=== PATIENT | male | born 1950 | race Caucasian/White ===

== ENCOUNTER 2020-07-06 16:06 | Inpatient (IN) | payer MEDICARE, MEDICAID, SELFPAY ==
[2020-07-06] VITALS (7 sets, daily range): BP systolic 123–166; BP diastolic 66–86; PULSE 67–87; RESP 16–20; TEMP 36.3–36.5; O2SAT 94–97; BMI 39.9
--- NOTE | ~2020-07-06 | XR_ITS ---
EXAMINATION: XR chest 2V EXAM DATE: 07/06/2020 17:11 INDICATION: Dizziness, weakness, transient alteration of awareness. TECHNIQUE: Frontal and lateral projections of the chest obtained and reviewed. There is no prior clau dy for comparison. FINDINGS: There is cardiomegaly and pulmonary vascular congestion. No confluent consolidation, pneu mothorax or pleural effusion suspected. There are bony degenerative changes. IMPRESSION: Cardiomegaly, congestion. Reviewed, dictated and finalized at location A. IMPRESSION: Cardiomegaly, congestion.
--- NOTE | ~2020-07-06 | CT_ITS ---
EXAMINATION: CT brain wo con DATE: 07/06/2020 17:43 INDICATION: Dizziness. TECHNIQUE: Computed tomography (CT) of the head was performed without intravenous contrast. The mA wa s adjusted according to patient size. Iterative reconstruction technique was employed. Exam dose: 60 5.33 mGy-cm total exam DLP. COMPARISON: None FINDINGS: There are bilateral carotid siphon internal carotid artery calcifications. There is nonspec ific diminished attenuation of the cerebral white matter, likely due to chronic small vessel ischemic changes. No intracranial mass lesion or hemorrhage or recent cerebrovascular accident is evident. No midline s hift or mass effect. Normal ventricular size. No subdural or epidural hematoma. The orbits are unremarkable. No fracture or bone destruction of the cranial vault. Included paranasal sinuses and mastoid air cell s are normally developed and aerated. Included paranasal sinuses are normally developed and aerated. The mastoid air cells are normally dev eloped and aerated. IMPRESSION: No acute intracranial abnormality Cerebral atherosclerosis and chronic small vessel ischemic changes of the cerebral white matter Reviewed, dictated and finalized at Location [facility]. Reviewed, dictated and finalized at location A. IMPRESSION: No acute intracranial abnormality Cerebral atherosclerosis and chronic small vessel ischemic changes of the cereb ral white matter
--- NOTE | ~2020-07-06 | MR_ITS ---
EXAMINATION: MR brain/brain stem wo/w con DATE: 07/07/2020 11:58 INDICATION: Dizziness TECHNIQUE: Magnetic resonance imaging (MRI) of the brain and brainstem was performed without and with 20 mL Multihance intravenous contrast. Sequences included sagittal and axial T1-weighted SE, axial d iffusion-weighted FS SE, axial T2*-weighted GRE, axial T2-weighted FLAIR, and axial T2-weighted FSE. Postcontrast axial and coronal T1-weighted SE was obtained. Apparent diffusion coefficient (ADC) maps were created. COMPARISON: Head CT dated 07/06/2020 FINDINGS: There are no areas of restricted diffusion to suggest acute infarction. No intracranial hemorrhage or abnormal intracranial mass lesion. There are scattered areas of nonspecific increased T2-weighted si gnal intensity in the cerebral white matter, predominantly involving the deep and periventricular whi te matter. There are no intraparenchymal signal abnormalities seen on the other pulse sequences. The ventricles are symmetric and normal in size with normal variant cavum septum pellucidum. There are no abnormal extra-axial fluid collections. Flow voids are seen in the cerebral arteries on the T2-weigh quentin sequences consistent with their expected patency. Very small right mastoid effusion. Visualized o rbits and soft tissues are unremarkable. There are no areas of abnormal enhancement on the post contr ast images. IMPRESSION: 1. No acute intracranial process. 2. Mild scattered periventricular predominant nonspecific white matter T2 hyperintensity which is wit hin normal limits for age and likely sequela of chronic small vessel ischemic disease. Reviewed, dictated and finalized at location A. IMPRESSION: 1. No acute intracranial process. 2. Mild scattered periventricular predominant nonspecific white matter T2 hyper intensity which is within normal limits for age and likely sequela of chronic s mall vessel ischemic disease.
--- NOTE | 2020-07-06 16:07 | ED.DIZZY ---
HPI - Dizziness General Chief Complaint: Dizziness Stated Complaint: WEAK/DIZZY Time Seen by Provider: 07/06/20 16:06 Source: patient, family and EMS Mode of arrival: EMS Limitations: no limitations History of Present Illness HPI Narrative: Patient is 69 years old white male lives with his parents who brought him to the emergency room because of general weakness, wobbly-like feeling and dizziness started cotton sampler associated with nausea and clammy skin and frequent vomiting. Patient reports the dizziness gets worse with movement for turning his head to either direction. Patient denies any fever, chills, chest pain, shortness of breath, back pain, headache, COVID-19 infection or exposure to anybody with COVID-19 MD elicited complaint: dizziness, difficulty walking, disequilibrium and other (Vertigo) Related Data Home Medications Medication Instructions Recorded Confirmed K-Tab 07/06/20 aspirin 81 mg PO DAILY 07/06/20 07/06/20 atorvastatin [Lipitor] 80 mg PO DAILY 07/06/20 07/06/20 cetirizine 10 mg PO DAILY 07/06/20 07/06/20 furosemide [Lasix] 40 mg PO DAILY 07/06/20 07/06/20 glipizide [Glucotrol] 10 mg PO BID 07/06/20 07/06/20 insulin degludec [Tresiba U-100 SUBCUT 07/06/20 Insulin] lisinopril 5 mg PO DAILY 07/06/20 07/06/20 metformin [Glucophage] 1,000 mg PO BID 07/06/20 07/06/20 metoprolol succinate [Toprol XL] PO 07/06/20 pen needle, diabetic [NovoFine 30] 07/06/20 07/06/20 primidone 50 mg PO HS 07/06/20 07/06/20 semaglutide 0.5 mg SUBCUT WEEKLY 07/06/20 07/06/20 Allergies Allergy/AdvReac Type Severity Reaction Status Date / Time No Known Allergies Allergy Verified 07/06/20 16:21 Review of Systems Review of Systems: Narrative: CONSTITUTIONAL: Denies fever, chills, or sweats. EYES: Denies visual changes, redness, or discharge. ENT: Denies rhinorrhea, congestion, sore throat, or otalgia. CARDIOVASCULAR: Denies chest pain, palpitations, or edema. RESPIRATORY: Denies cough or dyspnea. GASTROINTESTINAL: Denies abdominal pain, nausea, vomiting, or diarrhea. GENITOURINARY: Denies dysuria or hematuria. SKIN: Denies rash or itching. MUSCULOSKELETAL: Denies back pain, joint pain, or myalgia. NEUROLOGIC: Denies headache, numbness, or weakness. PSYCHIATRIC: Denies anxiety or depression. Exam Narrative: Exam Narrative: General appearance: Well-developed, well-nourished Skin: Normal color Head: Normocephalic, nontraumatic Eyes: Clear conjunctiva ENT: Oropharynx normal, ears normal, nose normal Neck: Supple, nontender Chest and respiratory: Airway patent, no respiratory distress, no accessory muscle use Heart: Regular rate/rhythm Abdomen: Soft, nontender, no organomegaly, quiet bowel sounds Vascular: Normal peripheral pulses, normal capillary refill. Musculoskeletal: Normal range of motion, nontender back Neurologic: Alert and oriented ?3, [employer] is normal as tested, no gross motor deficit Course Course Emergency Course: Improving Reevaluation(s) Reevaluation #1: The dizziness resolved after IV Valium, Antivert and Zofran. Patient was not able to get up without senior office assistant because of the funny feeling in the head. Date: 07/06/20 Time: :21 Vital Signs Vital signs: Vital Signs Temperature 36.5 C 07/06/20 16:04 Pulse Rate 75 07/06/20 16:04 Respiratory Rate 20 07/06/20 16:04 Blood Pressure 141/73 H 07/06/20 16:04 Pulse Oximetry 94 07/06/20 16:04 Temperature 36.5 C 07/06/20 16:04 Pulse Rate 68 07/06/20 19:17 Respiratory Rate 18 07/06/20 19:17 Blood Pressure 166/80 H 07/06/20 19:17 Pulse Oximetry 94 07/06/20 19:17 MDM - Dizziness MDM Narrative Medical decision making narrative: Dizziness with naus
--- NOTE | 2020-07-06 16:24 | ECG_ITS ---
Measurements Intervals [place] Rate: 74 P: 56 VA: 142 QRS: 26 QRSD: 114 T: -14 QT: 400 QTc: 446 Interpretive Statements SINUS RHYTHM INFERIOR INFARCT, AGE INDETERMINATE ABNORMAL ECG Electronically Signed On 07-06-2020 16:39:24 CDT by Floyd Durant D.O.
[2020-07-06] MEDS: ONDANSETRON INJ 4 MG/2 ML VIAL 8 MG IV PUSH (16:47)
[2020-07-06 16:50] LABS: Basophils Percent Auto 0.1 % (0.2-1.2); Eosinophils Percent Auto 0.1 % (0-4.4); Hematocrit 44.2 % (42.0-52.0); Hemoglobin 15.1 g/dL (14.0-18.0); Immature Granulocyte Absolute 0.09 K/mm3 (0.00-0.031); Immature Granulocyte Percent A 0.8 % (0-0.5); Lymphocytes Absolute Auto 0.98 K/mm3 (0.9-3.2); Lymphocytes Percent Auto 8.6 % (18.3-44.2); Mean Corpuscular HGB Conc 34.2 g/dl (32-36); Mean Corpuscular Hemoglobin 31.3 pg (26-34); Mean Corpuscular Volume 91.5 fl (80-100); Mean Platelet Volume 10.7 fl (7.4-10.4); Monocytes Absolute Auto 0.4 K/mm3 (0.1-0.6); Monocytes Percent Auto 3.5 % (2.6-8.5); Neutrophils Absolute Auto 9.9 K/mm3 (1.3-6.7); Neutrophils Percent Auto 86.9 % (45.5-73.1); Platelet Count Result 204 k/mm3 (150-375); Red Blood Count 4.83 M/mm3 (4.6-6.20); Red Cell Distribution Width 12.6 % (11.5-14.5); White Blood Count 11.3 K/mm3 (4.5-10.0)
[2020-07-06] MEDS: diazePAM INJ (*CRX) 10 MG/2 ML SYRINGE 5 MG IV PUSH (16:53)
[2020-07-06 16:56] LABS: Alveolar/Arterial O2 Gradient 30.1 mmHg; Base Excess ABG -2.5 mEq/l (+/-2.0); Fractional Inspired Oxygen 21 %; HCO3 ABG 22.9 mEq/l (22.0-26.0); Oxygen Content ABG 19.9 %vol (16.0-22.0); Oxygen Saturation ABG 93.2 % (95.0-100.0); Oxyhemoglobin 91.3 % THb (90.0-100.0); PCO2 ABG 42.1 mmHg (35.0-45.0); PO2 ABG 69.2 mmHg (80.0-100.0); Total Hemoglobin 15.5 g/dL (12.0-18.0); pH ABG 7.354 (7.350-7.450)
[2020-07-06] MEDS: MECLIZINE HCL 25 MG TABLET PO (16:56)
[2020-07-06 16:57] LABS: Device ROOM AIR; Site Drawn LEFT BRACHIAL
[2020-07-06 17:05] LABS: Alanine Aminotransferase 28 U/L (4-50); Albumin Level 4.1 g/dL (3.5-5.1); Alkaline Phosphatase 90 U/L (38-126); Anion Gap 7 mmol/L (8-16); Aspartate Amino Transferase 24 U/L (17-59); Bilirubin,Total 0.4 mg/dL (0.2-1.3); Blood Urea Nitrogen 18 mg/dL (9-20); CRP < 0.5 mg/dL (<1.0); Calcium 8.8 mg/dL (8.4-10.2); Carbon Dioxide 25 mmol/L (22-30); Chloride 106 mmol/L (98-107); Estimated CRCL calculation 146 ml/min; Estimated Glomerular Filt Rate > 60; Glucose 265 mg/dL (75-110); Potassium 4.2 mmol/L (3.4-5.0); Sodium 138 mmol/L (137-145)
[2020-07-06 17:14] LABS: Lactic Acid Reflex 1.4 mmol/L (0.7-2.1)
[2020-07-06 17:46] LABS: Troponin I < 0.012 ng/mL (0.000-0.034)
[2020-07-06 21:38] LABS: Add Urine Microscopic? YES; Appearance Urine Clear (Clear); Bacteria Urine Trace /hpf; Bilirubin Urine Negative (Negative); Blood Urine Negative (Negative); Color Urine Yellow (Yellow); Glucose Urine UA 3+ mg/dL (Negative); Ketones Urine 2+ mg/dL (Negative); Leukocyte Esterase Ur Negative LEU/UL (Negative); Mucus Urine Rare /lpf; Nitrate Urine Negative (Negative); Protein Urine 1+ mg/dL (Negative); RBC Urine 0-2 /hpf (0-2); Specific Grav Ur 1.037 (1.001-1.035); Squamous Epithelial Cell Urine Rare /hpf (Few); Urobilinogen Urine Negative mg/dL (<2.0); WBC Urine 0-3 /hpf
--- NOTE | 2020-07-06 21:41 | ADMGEN ---
This patient, Jovan Anguiano, was admitted to Medical Room [facility]-[id number]. Patient/family oriented to hospital policies and general routines including ID bracelet, bed and alarms, visiting hours, pain management, procedures, bathroom and other care routines, personal items, smoking policy, room service/diet, and visiting hours. Information on how to activate the Rapid Response Team has been discussed. Patient/Family are encouraged to report perceived risks to care and to ask questions if they do not understand what they are told or what they should do.
[2020-07-06 21:57] LABS: Glucose Point of Care 219 (65-105)
[2020-07-07] VITALS (10 sets, daily range): BP systolic 118–146; BP diastolic 60–75; PULSE 61–72; RESP 18; TEMP 36.1–36.4; O2SAT 95–99
--- NOTE | 2020-07-07 02:26 | PM.IMHP ---
H&P: HPI History of Present Illness Date/Time: 07/07/20 02:26 Chief Complaint: Dizziness, nausea vomiting Narrative: 69-year-old male with a past medical history of intellectual disability, diabetes mellitus, hypertension and morbid obesity who presented to the ER via EMS with dizziness, nausea and vomiting. The patient is only a fair historian due to his history of intellectual disability. The patient reports that is around dinnertime on the he went to stand up and could not do so. He reported that he felt like his legs were moving in opposite directions. He also reported feeling dizzy and could not walk. He tried to walk downstairs to check his glucoses but could not do so. At that time his parents called EMS. He denied any headache at that time. He does describe what sounds like vertigo. He had several episodes of emesis. He had severe nausea with changes in position. While he was in the ER when he was lying still with his eyes closed his symptoms were not as bad. He received diazepam, meclizine and Zofran in the ER with significant improvement in his symptoms. However when they tried to stand the patient up to ambulate he still reported that his head felt funny and he was unstable on his feet. The patient had recurrence of his dizziness. After he arrived on the medical floor he developed a headache. He cannot describe the type of headache and does not note any eliciting or relieving factors. He states that he thinks that headache is all over his head. He denies any recent upper respiratory symptoms, ear pain or fullness, nasal congestion, viral symptoms ordered known COVID exposures. He lives at home with his elderly parents who have not had any upper respiratory symptoms. His glucose when he arrived to the ER was 265. Review of Systems Review of Systems: Narrative: 12 systems were reviewed with pertinent positives and negatives per HPI. Except as documented in the HPI, all other systems were reviewed and are negative. [facility] Past Medical History Medical History (Updated 07/07/20 @ 07:39 by Meaghan Phillips DO) CHF (congestive heart failure) Diabetes mellitus Essential hypertension Hyperlipidemia Intellectual disability Morbid obesity Surgical History Surgical History (Updated 07/07/20 @ 02:30 by Meaghan Phillips DO) Hx of tonsillectomy Family History Family History Other Unknown family medical history Social History Social History (Updated 07/07/20 @ 07:35 by Meaghan Phillips DO) Smoking packs per day: 1 Smoking cigarettes per day: 20.0 Years smoked: 49 Smoking pack-years: 49.00 Smoking status: Current every day smoker Tobacco type: cigarettes Additional smoking assessment comments: Started smoking at age of 20 Alcohol intake: never Substance use: never Substance use type: does not use Living arrangements: with family Additional living arrangements comments: In [place] with his elderly parents. His parents help provide for his activities of daily living. The patient does not drive. He has 1 sister and 3 brothers. Additional occupation/education comments: He is on disability due to his intellectual impairment. Gender identity (if verbalized by the patient): Male Spiritual care concerns: No Meds Home Medications and Allergies Home Medications Medication Instructions Recorded Confirmed Type K-Tab 10 meq PO DAILY 07/06/20 07/06/20 History aspirin 81 mg PO DAILY 07/06/20 07/06/20 History atorvastatin [Lipitor] 80 mg PO DAILY 07/06/20 07/06/20 History cetirizine 10 mg PO DAILY 07/06/20 07/06/20 History furosemide [Lasix] 40 mg PO DAILY 07/06/20 07/06/20 History glipizide [Glucotrol] 10 mg PO BID 07/06/20 07/06/20 History insulin degludec [Tresiba U-100 52 unit SUBCUT DAILY 07/06/20 07/06/20 History Insulin] lisinopril 5 mg PO DAILY 07/06/20 07/06/20 History metformin [Glucophage] 1,000 mg PO BID 0
[2020-07-07 06:40] LABS: Hemoglobin A1C 9.2 % (<5.7)
[2020-07-07 06:49] LABS: Glucose Point of Care 231 (65-105)
[2020-07-07] MEDS: INSULIN ASPART (*BKC) 100 UNITS/ML SUB-Q ×2 (07:19→12:32)
[2020-07-07] MEDS: INSULIN GLARGINE (*BKC) 100 UNITS/ML 52 UNITS SUB-Q (09:11)
[2020-07-07] MEDS: metFORMIN HCL 500 MG TABLET 1000 MG PO ×2 (09:13→17:03)
[2020-07-07] MEDS: ASPIRIN 81 MG ENTERIC TABLET PO (09:13)
[2020-07-07] MEDS: lisinopriL 5 MG TABLET PO (09:13)
[2020-07-07] MEDS: glipiZIDE 5 MG TABLET 10 MG PO ×2 (09:13→17:02)
[2020-07-07] MEDS: LORATADINE 10 MG TABLET PO (09:13)
[2020-07-07] MEDS: ATORVASTATIN 40 MG TABLET 80 MG PO (09:14)
[2020-07-07] MEDS: POTASSIUM CHLORIDE 10 MEQ TABLET.ER PO (09:14)
[2020-07-07] MEDS: FUROSEMIDE 40 MG TABLET PO (09:14)
[2020-07-07] MEDS: METOPROLOL SUCCINATE EXT REL 50 MG TABCR PO (09:14)
[2020-07-07] MEDS: MECLIZINE HCL 25 MG TABLET PO ×3 (09:14→17:02)
[2020-07-07 12:32] LABS: Glucose Point of Care 212 (65-105)
--- NOTE | 2020-07-07 14:09 | PM.IMPN ---
Progress Note: A&P Assessment and Plan (1) Vertigo: Code(s): R42 - Dizziness and giddiness Status: Acute Assessment and Plan: Possibly due to benign positional vertigo. The patient's symptoms did improve with diazepam and meclizine. However some symptoms do still persist. Given the patient has a complicated medical history with diabetes hypertension and obesity he is at increased risk for CVA. Will check an MRI to rule out posterior circulation CVA. 07/07/20 14:09 Patient is 69-year-old male with history intellectual disability who was brought to the emergency department by his family as he had been complaining of dizziness describing as his legs were moving in a opposite direction and he was not able to ambulate he also complains of nausea and vomiting his symptoms emergency department patient was given meclizine, diazepam and Zofran patient did help with symptoms, to further evaluate patient had a CT scan of the head which was negative acute intracranial abnormality similarly patient had MRI which is essentially normal, did participate in physical therapy however he was not able to ambulate due to his symptoms and was not able to participate physical therapy, will continue to monitor and provide the patient with meclizine and continue his physical therapy once his clinically stable will do the discharge planning. (2) Type 2 diabetes mellitus with hyperglycemia: Code(s): E11.65 - Type 2 diabetes mellitus with hyperglycemia Status: Acute Assessment and Plan: Will resume the patient's home oral clot hypoglycemic agents as well as long-acting insulin. The patient's hemoglobin A1c indicates the patient is chronically uncontrolled with his diabetes. Will add sliding scale insulin with Accu-Cheks a.c. HS and hypoglycemia protocol. Subjective Date/time seen: 07/07/20 14:09 Patient is 69-year-old male with history intellectual disability who was brought to the emergency department by his family as he had been complaining of dizziness describing as his legs were moving in a opposite direction and he was not able to ambulate he also complains of nausea and vomiting his symptoms emergency department patient was given meclizine, diazepam and Zofran patient did help with symptoms, to further evaluate patient had a CT scan of the head which was negative acute intracranial abnormality similarly patient had MRI which is essentially normal, did participate in physical therapy however he was not able to ambulate due to his symptoms and was not able to participate physical therapy, will continue to monitor and provide the patient with meclizine and continue his physical therapy once his clinically stable will do the discharge planning. Review of Systems Review of Systems: All systems reviewed & are unremarkable except as noted in HPI and below Exam Narrative: Exam Narrative: Moderately obese Patient is comfortable, NAD HEENT: eyes are clear and none icteric LUNGS:CTA HEART: RR S1S2 ABD: BS+, Soft and nontender Lower extremities: no edema SKIN: nonjaundiced Neuro: grossly intact. Objective Data Vital Signs Vital Signs: Vital Signs - 24 hr 07/06/20 16:04 07/06/20 16:15 07/06/20 16:45 Temperature 97.7 F Pulse Rate 75 74 67 Respiratory Rate 20 16 18 Blood Pressure 141/73 H 140/74 144/69 H Pulse Oximetry 94 97 95 07/06/20 17:10 07/06/20 19:17 07/06/20 21:15 Temperature Pulse Rate 72 68 79 Respiratory Rate 18 19 Blood Pressure 129/66 166/80 H 149/71 H Pulse Oximetry 94 95 07/06/20 21:55 07/07/20 00:00 07/07/20 04:00 Temperature 97.3 F L Pulse Rate 87 70 69 Respiratory Rate 18 Blood Pressure 123/86 Pulse Oximetry 96 07/07/20 06:00 07/07/20 08:00 07/07/20 09:14 Temperature 97.6 F Pulse Rate 68 72 68 Respiratory Rate 18 Blood Pressure 127/60 Pulse Oximetry 95 Intake/Output Intake/Output: Intake & Output 07/04/20 07/05/20 07/06/20 07/07/20 23:59
[2020-07-07 14:29] LABS: Glucose Point of Care 234 (65-105)
[2020-07-07 16:55] LABS: Glucose Point of Care 192 (65-105)
[2020-07-07 21:58] LABS: Glucose Point of Care 231 (65-105)
[2020-07-08] VITALS (10 sets, daily range): BP systolic 142–152; BP diastolic 73–77; PULSE 58–74; RESP 16–18; TEMP 36.1–36.4; O2SAT 96–99
[2020-07-08 06:53] LABS: Glucose Point of Care 247 (65-105)
[2020-07-08] MEDS: glipiZIDE 5 MG TABLET 10 MG PO ×2 (07:20→16:33)
[2020-07-08] MEDS: INSULIN ASPART (*BKC) 100 UNITS/ML SUB-Q (07:21)
[2020-07-08] MEDS: POTASSIUM CHLORIDE 10 MEQ TABLET.ER PO (07:21)
[2020-07-08] MEDS: metFORMIN HCL 500 MG TABLET 1000 MG PO ×2 (07:21→16:33)
[2020-07-08] MEDS: FUROSEMIDE 40 MG TABLET PO (08:53)
[2020-07-08] MEDS: lisinopriL 5 MG TABLET PO (08:53)
[2020-07-08] MEDS: ASPIRIN 81 MG ENTERIC TABLET PO (08:53)
[2020-07-08] MEDS: METOPROLOL SUCCINATE EXT REL 50 MG TABCR PO (08:53)
[2020-07-08] MEDS: ATORVASTATIN 40 MG TABLET 80 MG PO (08:53)
[2020-07-08] MEDS: MECLIZINE HCL 25 MG TABLET PO ×3 (08:53→16:33)
[2020-07-08] MEDS: LORATADINE 10 MG TABLET PO (08:55)
[2020-07-08] MEDS: INSULIN GLARGINE (*BKC) 100 UNITS/ML 52 UNITS SUB-Q (08:55)
[2020-07-08 12:39] LABS: Glucose Point of Care 195 (65-105)
--- NOTE | 2020-07-08 14:00 | PM.IMPN ---
Progress Note: A&P Assessment and Plan (1) Vertigo: Code(s): R42 - Dizziness and giddiness Status: Acute Assessment and Plan: Possibly due to benign positional vertigo. The patient's symptoms did improve with diazepam and meclizine. However some symptoms do still persist. Given the patient has a complicated medical history with diabetes hypertension and obesity he is at increased risk for CVA. Will check an MRI to rule out posterior circulation CVA. 07/07/20 Patient is 69-year-old male with history intellectual disability who was brought to the emergency department by his family as he had been complaining of dizziness describing as his legs were moving in a opposite direction and he was not able to ambulate he also complains of nausea and vomiting his symptoms emergency department patient was given meclizine, diazepam and Zofran patient did help with symptoms, to further evaluate patient had a CT scan of the head which was negative acute intracranial abnormality similarly patient had MRI which is essentially normal, did participate in physical therapy however he was not able to ambulate due to his symptoms and was not able to participate physical therapy, will continue to monitor and provide the patient with meclizine and continue his physical therapy once his clinically stable will do the discharge planning. 07/08 today patient participate in PT was still dizzy and unsteady on feet, discussed with PT, will try again tomorrow and further recommendation to follow. will continue meclizine 25mg PO TID, His father is present in the room and discussed and answered all the questions. (2) Type 2 diabetes mellitus with hyperglycemia: Code(s): E11.65 - Type 2 diabetes mellitus with hyperglycemia Status: Acute Assessment and Plan: Will resume the patient's home oral clot hypoglycemic agents as well as long-acting insulin. The patient's hemoglobin A1c indicates the patient is chronically uncontrolled with his diabetes. Will add sliding scale insulin with Accu-Cheks a.c. HS and hypoglycemia protocol. Subjective Date/time seen: 07/08/20 14:00 07/07/20 Patient is 69-year-old male with history intellectual disability who was brought to the emergency department by his family as he had been complaining of dizziness describing as his legs were moving in a opposite direction and he was not able to ambulate he also complains of nausea and vomiting his symptoms emergency department patient was given meclizine, diazepam and Zofran patient did help with symptoms, to further evaluate patient had a CT scan of the head which was negative acute intracranial abnormality similarly patient had MRI which is essentially normal, did participate in physical therapy however he was not able to ambulate due to his symptoms and was not able to participate physical therapy, will continue to monitor and provide the patient with meclizine and continue his physical therapy once his clinically stable will do the discharge planning. 07/08 today patient participate in PT was still dizzy and unsteady on feet, discussed with PT, will try again tomorrow and further recommendation to follow. will continue meclizine 25mg PO TID, His father is present in the room and discussed and answered all the questions. Review of Systems Review of Systems: All systems reviewed & are unremarkable except as noted in HPI and below Exam Narrative: Exam Narrative: Moderately obese Patient is comfortable, NAD HEENT: eyes are clear and none icteric LUNGS:CTA HEART: RR S1S2 ABD: BS+, Soft and nontender Lower extremities: no edema SKIN: nonjaundiced Neuro: grossly intact. Objective Data Vital Signs Vital Signs: Vital Signs - 24 hr 07/07/20 16:00 07/07/20 20:00 07/07/20 21:48 Temperature Pulse Rate 61 72 Respiratory Rate Blood Pressure Pulse Oximetry 96 07/07/20 22:00 07/08/20 00:00 07/08/20 04:00 Temperature 97.0 F L P
[2020-07-08 17:19] LABS: Glucose Point of Care 195 (65-105)
[2020-07-08 21:12] LABS: Glucose Point of Care 206 (65-105)
[2020-07-09] VITALS (10 sets, daily range): BP systolic 119–151; BP diastolic 66–80; PULSE 56–66; RESP 16–18; TEMP 36.3–36.5; O2SAT 97–99
[2020-07-09 05:36] LABS: Hematocrit 46.8 % (42.0-52.0); Hemoglobin 15.7 g/dL (14.0-18.0); Mean Corpuscular HGB Conc 33.5 g/dl (32-36); Mean Corpuscular Hemoglobin 30.7 pg (26-34); Mean Corpuscular Volume 91.6 fl (80-100); Mean Platelet Volume 10.9 fl (7.4-10.4); Platelet Count Result 200 k/mm3 (150-375); Red Blood Count 5.11 M/mm3 (4.6-6.20); Red Cell Distribution Width 12.3 % (11.5-14.5)
[2020-07-09 05:59] LABS: Anion Gap 5 mmol/L (8-16); Blood Urea Nitrogen 14 mg/dL (9-20); Calcium 8.8 mg/dL (8.4-10.2); Carbon Dioxide 33 mmol/L (22-30); Chloride 102 mmol/L (98-107); Estimated CRCL calculation 123 ml/min; Estimated Glomerular Filt Rate > 60; Glucose 183 mg/dL (75-110); Magnesium 1.7 mg/dL (1.6-2.3); Potassium 3.7 mmol/L (3.4-5.0); Sodium 140 mmol/L (137-145)
[2020-07-09 07:42] LABS: Glucose Point of Care 198 (65-105)
[2020-07-09] MEDS: lisinopriL 5 MG TABLET PO (08:38)
[2020-07-09] MEDS: METOPROLOL SUCCINATE EXT REL 50 MG TABCR PO (08:38)
[2020-07-09] MEDS: FUROSEMIDE 40 MG TABLET PO (08:38)
[2020-07-09] MEDS: ATORVASTATIN 40 MG TABLET 80 MG PO (08:38)
[2020-07-09] MEDS: LORATADINE 10 MG TABLET PO (08:38)
[2020-07-09] MEDS: metFORMIN HCL 500 MG TABLET 1000 MG PO ×2 (08:38→17:30)
[2020-07-09] MEDS: glipiZIDE 5 MG TABLET 10 MG PO ×2 (08:38→17:31)
[2020-07-09] MEDS: MECLIZINE HCL 25 MG TABLET PO ×3 (08:38→17:31)
[2020-07-09] MEDS: POTASSIUM CHLORIDE 10 MEQ TABLET.ER PO (08:39)
[2020-07-09] MEDS: ASPIRIN 81 MG ENTERIC TABLET PO (08:39)
[2020-07-09] MEDS: INSULIN GLARGINE (*BKC) 100 UNITS/ML 52 UNITS SUB-Q (08:42)
[2020-07-09] MEDS: INSULIN ASPART (*BKC) 100 UNITS/ML SUB-Q (12:17)
[2020-07-09 13:28] LABS: Glucose Point of Care 280 (65-105)
--- NOTE | 2020-07-09 14:26 | PM.IMPN ---
Progress Note: A&P Assessment and Plan (1) Vertigo: Code(s): R42 - Dizziness and giddiness Status: Acute Assessment and Plan: Possibly due to benign positional vertigo. The patient's symptoms did improve with diazepam and meclizine. However some symptoms do still persist. Given the patient has a complicated medical history with diabetes hypertension and obesity he is at increased risk for CVA. Will check an MRI to rule out posterior circulation CVA. 07/09/20 14:26 07/07/20 Patient is 69-year-old male with history intellectual disability who was brought to the emergency department by his family as he had been complaining of dizziness describing as his legs were moving in a opposite direction and he was not able to ambulate he also complains of nausea and vomiting his symptoms emergency department patient was given meclizine, diazepam and Zofran patient did help with symptoms, to further evaluate patient had a CT scan of the head which was negative acute intracranial abnormality similarly patient had MRI which is essentially normal, did participate in physical therapy however he was not able to ambulate due to his symptoms and was not able to participate physical therapy, will continue to monitor and provide the patient with meclizine and continue his physical therapy once his clinically stable will do the discharge planning. 07/08 today patient participate in PT was still dizzy and unsteady on feet, discussed with PT, will try again tomorrow and further recommendation to follow. will continue meclizine 25mg PO TID, His father is present in the room and discussed and answered all the questions. 07/09 today patient stats dizziness has improved however discussed with PT he is very unsteady on his feet and will benefit going to rehab for physical therapy, I have spoke to his family and they are agreeable, may discharge to rehab tomorrow. (2) Type 2 diabetes mellitus with hyperglycemia: Code(s): E11.65 - Type 2 diabetes mellitus with hyperglycemia Status: Acute Assessment and Plan: Will resume the patient's home oral clot hypoglycemic agents as well as long-acting insulin. The patient's hemoglobin A1c indicates the patient is chronically uncontrolled with his diabetes. Will add sliding scale insulin with Accu-Cheks a.c. HS and hypoglycemia protocol. Subjective Date/time seen: 07/09/20 14:26 07/07/20 Patient is 69-year-old male with history intellectual disability who was brought to the emergency department by his family as he had been complaining of dizziness describing as his legs were moving in a opposite direction and he was not able to ambulate he also complains of nausea and vomiting his symptoms emergency department patient was given meclizine, diazepam and Zofran patient did help with symptoms, to further evaluate patient had a CT scan of the head which was negative acute intracranial abnormality similarly patient had MRI which is essentially normal, did participate in physical therapy however he was not able to ambulate due to his symptoms and was not able to participate physical therapy, will continue to monitor and provide the patient with meclizine and continue his physical therapy once his clinically stable will do the discharge planning. 07/08 today patient participate in PT was still dizzy and unsteady on feet, discussed with PT, will try again tomorrow and further recommendation to follow. will continue meclizine 25mg PO TID, His father is present in the room and discussed and answered all the questions. 07/09 today patient stats dizziness has improved however discussed with PT he is very unsteady on his feet and will benefit going to rehab for physical therapy, I have spoke to his family and they are agreeable, may discharge to rehab tomorrow. Review of Systems Review of Systems: All systems reviewed & are unremarkable except as noted in HPI and below Exam Narrative: Exam Narrative: Mark
[2020-07-09 18:18] LABS: Glucose Point of Care 159 (65-105)
[2020-07-09 20:24] LABS: SARS-CoV-2 RNA PCR Negative
[2020-07-09 23:49] LABS: Glucose Point of Care 216 (65-105)
[2020-07-10] VITALS: PULSE 62
[2020-07-10 04:00] VITALS: PULSE 65
[2020-07-10 05:11] VITALS: BP 124/74; PULSE 64; RESP 16; TEMP 36.3; O2SAT 97
[2020-07-10 05:26] LABS: Hematocrit 46.3 % (42.0-52.0); Hemoglobin 15.8 g/dL (14.0-18.0); Mean Corpuscular HGB Conc 34.1 g/dl (32-36); Mean Corpuscular Hemoglobin 30.9 pg (26-34); Mean Corpuscular Volume 90.4 fl (80-100); Mean Platelet Volume 10.8 fl (7.4-10.4); Platelet Count Result 207 k/mm3 (150-375); Red Blood Count 5.12 M/mm3 (4.6-6.20); Red Cell Distribution Width 12.2 % (11.5-14.5); White Blood Count 9.9 K/mm3 (4.5-10.0)
[2020-07-10 05:44] LABS: Anion Gap 5 mmol/L (8-16); Blood Urea Nitrogen 15 mg/dL (9-20); Calcium 9.1 mg/dL (8.4-10.2); Carbon Dioxide 33 mmol/L (22-30); Chloride 101 mmol/L (98-107); Estimated CRCL calculation 107 ml/min; Estimated Glomerular Filt Rate > 60; Glucose 208 mg/dL (75-110); Potassium 3.7 mmol/L (3.4-5.0); Sodium 139 mmol/L (137-145)
[2020-07-10 07:49] LABS: Glucose Point of Care 187 (65-105)
[2020-07-10 08:00] VITALS: PULSE 71
[2020-07-10] MEDS: glipiZIDE 5 MG TABLET 10 MG PO (08:39)
[2020-07-10] MEDS: metFORMIN HCL 500 MG TABLET 1000 MG PO (08:39)
[2020-07-10] MEDS: MECLIZINE HCL 25 MG TABLET PO ×2 (08:39→11:49)
[2020-07-10] MEDS: lisinopriL 5 MG TABLET PO (08:40)
[2020-07-10] MEDS: FUROSEMIDE 40 MG TABLET PO (08:40)
[2020-07-10] MEDS: ATORVASTATIN 40 MG TABLET 80 MG PO (08:40)
[2020-07-10] MEDS: POTASSIUM CHLORIDE 10 MEQ TABLET.ER PO (08:40)
[2020-07-10] MEDS: ASPIRIN 81 MG ENTERIC TABLET PO (08:40)
[2020-07-10] MEDS: INSULIN GLARGINE (*BKC) 100 UNITS/ML 52 UNITS SUB-Q (08:41)
[2020-07-10] MEDS: METOPROLOL SUCCINATE EXT REL 50 MG TABCR PO (08:41)
[2020-07-10] MEDS: LORATADINE 10 MG TABLET PO (08:41)
[2020-07-10 11:44] LABS: Glucose Point of Care 263 (65-105)
[2020-07-10] MEDS: INSULIN ASPART (*BKC) 100 UNITS/ML SUB-Q (11:44)
--- NOTE | 2020-07-10 11:50 | PM.DS ---
DS: Admitting Diagnosis Admitting Diagnosis Admitting Diagnosis: Chief Complaint: Dizziness, nausea vomiting DS: Discharge Diagnosis Discharge Diagnosis (1) Vertigo: Code(s): R42 - Dizziness and giddiness Status: Acute Assessment and Plan: Possibly due to benign positional vertigo. The patient's symptoms did improve with diazepam and meclizine. However some symptoms do still persist. Given the patient has a complicated medical history with diabetes hypertension and obesity he is at increased risk for CVA. Will check an MRI to rule out posterior circulation CVA. 07/09/20 14:26 07/07/20 Patient is 69-year-old male with history intellectual disability who was brought to the emergency department by his family as he had been complaining of dizziness describing as his legs were moving in a opposite direction and he was not able to ambulate he also complains of nausea and vomiting his symptoms emergency department patient was given meclizine, diazepam and Zofran patient did help with symptoms, to further evaluate patient had a CT scan of the head which was negative acute intracranial abnormality similarly patient had MRI which is essentially normal, did participate in physical therapy however he was not able to ambulate due to his symptoms and was not able to participate physical therapy, will continue to monitor and provide the patient with meclizine and continue his physical therapy once his clinically stable will do the discharge planning. 07/08 today patient participate in PT was still dizzy and unsteady on feet, discussed with PT, will try again tomorrow and further recommendation to follow. will continue meclizine 25mg PO TID, His father is present in the room and discussed and answered all the questions. 07/09 today patient stats dizziness has improved however discussed with PT he is very unsteady on his feet and will benefit going to rehab for physical therapy, I have spoke to his family and they are agreeable, may discharge to rehab tomorrow. (2) Type 2 diabetes mellitus with hyperglycemia: Code(s): E11.65 - Type 2 diabetes mellitus with hyperglycemia Status: Acute Assessment and Plan: Will resume the patient's home oral clot hypoglycemic agents as well as long-acting insulin. The patient's hemoglobin A1c indicates the patient is chronically uncontrolled with his diabetes. Will add sliding scale insulin with Accu-Cheks a.c. HS and hypoglycemia protocol. DS: Summary Hospital Course Reason for hospitalization: Chief Complaint: Dizziness, nausea vomiting Narrative: 69-year-old male with a past medical history of intellectual disability, diabetes mellitus, hypertension and morbid obesity who presented to the ER via EMS with dizziness, nausea and vomiting. The patient is only a fair historian due to his history of intellectual disability. The patient reports that is around dinnertime on the he went to stand up and could not do so. He reported that he felt like his legs were moving in opposite directions. He also reported feeling dizzy and could not walk. He tried to walk downstairs to check his glucoses but could not do so. At that time his parents called EMS. He denied any headache at that time. He does describe what sounds like vertigo. He had several episodes of emesis. He had severe nausea with changes in position. While he was in the ER when he was lying still with his eyes closed his symptoms were not as bad. He received diazepam, meclizine and Zofran in the ER with significant improvement in his symptoms. However when they tried to stand the patient up to ambulate he still reported that his head felt funny and he was unstable on his feet. The patient had recurrence of his dizziness. After he arrived on the medical floor he developed a headache. He cannot describe the type of headache and does not note any eliciting or relieving factors. He states that he thinks that headache is all ove
[2020-07-10 12:00] VITALS: PULSE 71
[2020-07-10 14:00] VITALS: BP 111/69; PULSE 78; RESP 19; TEMP 36.6; O2SAT 97
--- NOTE | 2020-07-10 14:15 | PC.NURSE ---
On 07/10/20, the student, [Tricia Claros ], provided care and completed [facility] documentation on this patient. I have reviewed the student's documentation and agree with the findings.
== END 2020-07-10 14:45 | DRG 149 ==
LOC: ANHED 19:23 → ANH2MED 21:23
PROVIDERS: Admitting Provider Internal Medicine; Emergency Provider Emergency Medicine; Visit Provider Family Medicine
DX: H81.10 Benign paroxysmal vertigo, unspecified ear (principal); Z68.41 Body mass index [BMI] 40.0-44.9, adult; E66.01 Morbid (severe) obesity due to excess calories; Z20.828 Contact with and (suspected) exposure to other viral communicable diseases; E11.65 Type 2 diabetes mellitus with hyperglycemia; F79 Unspecified intellectual disabilities; F17.210 Nicotine dependence, cigarettes, uncomplicated; Z28.21 Immunization not carried out because of patient refusal; Z79.4 Long term (current) use of insulin; Z79.82 Long term (current) use of aspirin
CPT/HCPCS: 36415; 36600; 51701; 70450; 70553; 71046; 80048; 80053; 81001; 82805; 82948; 83036; 83605; 83735; 84484; 85025; 85027; 86140; 87040; 93005; 96374; 96375; 97110; 97116; 97161; 97165; 97530; 97535; 99285; A9270; A9577; C9803; G0378; J1815; J2405; J3360; U0003; U0005

== ENCOUNTER 2023-08-28 14:15 | Inpatient (IN) | payer MEDICARE, MEDICAID, SELFPAY ==
[2023-08-28] VITALS (13 sets, daily range): BP systolic 106–142; BP diastolic 56–78; PULSE 62–95; RESP 16–25; TEMP 36.6–37.1; O2SAT 94–98; BMI 39.9
--- NOTE | ~2023-08-28 | XR_ITS ---
EXAMINATION: XR chest 2V DATE: 08/28/2023 16:23 INDICATION: Weakness. Dizziness. TECHNIQUE: Frontal and lateral views of the chest were obtained. COMPARISON: Chest 2 view 07/06/2020 FINDINGS: There is mild atelectasis in right lower lung zone. No pleural effusion or pneumothorax. Th e heart size is normal. IMPRESSION: 1. Mild atelectasis in right lower lung zone. Reviewed, dictated and finalized at location A.
--- NOTE | ~2023-08-28 | CT_ITS ---
EXAMINATION: CT brain wo con DATE: 08/28/2023 16:18 INDICATION: Generalized weakness. Dizziness. TECHNIQUE: Computed tomography (CT) of the head was performed without intravenous contrast. The mA wa s adjusted according to patient size. Iterative reconstruction technique was employed. The dose-lengt h product was 605.33 mGy-cm. COMPARISON: Head CT 07/06/2020, brain MRI 07/07/2020 FINDINGS: There are scattered areas of low attenuation in the cerebral white matter. There is no intr acranial hemorrhage, acute infarction, or abnormal intracranial mass lesion. The ventricles are servando l in size. There are likely changes of right ocular lens replacement surgery. The paranasal sinuses a re clear. The mastoid air cells are normal. IMPRESSION: 1. Stable mild nonspecific cerebral white matter disease, which likely represents chronic small vesse l ischemic disease. Reviewed, dictated and finalized at location A. IMPRESSION: 1. Stable mild nonspecific cerebral white matter disease, which likely represen ts chronic small vessel ischemic disease.
--- NOTE | ~2023-08-28 | CT_ITS ---
EXAMINATION: CTA BRAIN/CAROTID DATE: 08/28/2023 18:09 INDICATION: Dizziness and generalized weakness TECHNIQUE: Computed tomographic angiography (CTA) of the head and neck was performed with 100 mL Omni paque-350 intravenous contrast. Multiplanar reconstructions and maximum intensity projection 3D-recon structions of the carotid arteries and of the intracranial arteries were created by the technologist on a separate workstation. Automated exposure control and iterative reconstruction technique were emp loyed.The dose-length product was 1158.04 mGy-cm. COMPARISON: None. FINDINGS: Carotid arteries: Visualized aortic arch is normal caliber with no atherosclerosis or dissection. Minimal atheroscleros is at the origin of the great vessels arising from the arch. There is small amount of atherosclerotic plaque with 0% stenosis of the right and left carotid bulbs relative to normal distal artery lumen d iameter (NASCET criteria). Cervical portion of the bilateral vertebral arteries are codominant with n o hemodynamic significant stenosis. Cervical soft tissues are unremarkable. The visualized upper lung s are clear. Superior mediastinum is unremarkable. Severe cervical spondylosis. Intracranial arteries There is atherosclerotic calcific a cyst at the bilateral carotid siphons without hemodynamically sig nificant stenosis. There is no hemodynamically significant stenosis in the vertebral, basilar and int ernal carotid arteries. Vertebral arteries are codominant. There are no aneurysms identified. Both A 1 and P1 segments are patent. Cerebral arterial arborization appears symmetric. No abnormally enhanc ing brain lesions. IMPRESSION: 1. Small amount of atherosclerotic plaque with 0% stenosis of the right and left carotid bulbs relati ve to normal distal artery lumen diameter (NASCET criteria). 2. Unremarkable cerebral CT angiogram with no aneurysm, dissection or hemodynamic significant stenosi s. Reviewed, dictated and finalized at location A. IMPRESSION: 1. Small amount of atherosclerotic plaque with 0% stenosis of the right and lef t carotid bulbs relative to normal distal artery lumen diameter (NASCET criteri a). 2. Unremarkable cerebral CT angiogram with no aneurysm, dissection or hemodynam ic significant stenosis.
--- NOTE | ~2023-08-28 | US_ITS ---
EXAMINATION: US venous doppler [facility] DATE: 08/29/2023 14:20 INDICATION: swelling redness and pain noted to RLE . TECHNIQUE: Grayscale images without and with compression and Doppler images of the bilateral lower ex tremity veins were obtained. COMPARISON: None FINDINGS: The right common femoral vein, profunda (deep) femoral vein, femoral vein, popliteal vein, peroneal v ein, posterior tibial veins, gastrocnemius vein, and greater saphenous vein are patent. Echogenic bands within the distal femoral and popliteal veins which remain compressible still demonst rate flow. The left common femoral vein, profunda (deep) popliteal vein, peroneal vein, posterior tib ial veins, gastrocnemius vein, and greater saphenous vein are patent. IMPRESSION: Patent right lower extremity veins. No evidence of right deep venous thrombosis. No evidence of acute left lower extremity DVT. Findings consistent with chronic nonocclusive DVT in t he left distal femoral and popliteal veins. Reviewed, dictated and finalized at location K. IMPRESSION: Patent right lower extremity veins. No evidence of right deep venous thrombosis . No evidence of acute left lower extremity DVT. Findings consistent with chronic nonocclusive DVT in the left distal femoral and popliteal veins.
--- NOTE | ~2023-08-28 | MR_ITS ---
EXAMINATION: MR brain/brain stem wo/w con DATE: 08/29/2023 15:35 INDICATION: stroke TECHNIQUE: Magnetic resonance imaging (MRI) of the brain and brainstem was performed with 20 mL Multi Freddy intravenous contrast. Sequences included sagittal and axial T1-weighted SE, axial diffusion-aleksey ghted FS EPI ASSET, axial T2*-weighted GRE, axial T2-weighted FLAIR Propeller, and axial T2-weighted Propeller. Postcontrast axial and coronal T1-weighted SE was obtained. Apparent diffusion coefficient (ADC) maps were created. COMPARISON: 07/07/2020; CT brain and CTA brain carotid 08/28/2023 FINDINGS: No abnormal restricted diffusion to suggest acute ischemic infarct. No MRI evidence of hemorrhage or extra-axial collection. No suspicious foci of susceptibility to suggest prior intraparenchymal hemorr vinicius. Scattered foci of white matter hyperintensity, likely representing mild small vessel ischemic d isease. Mild generalized parenchymal volume loss. The basilar cisterns are patent. Flow voids are pre served. Normal variant cavum septum pellucidum. Left maxillary and ethmoid mucosal thickening, otherw ise the paranasal sinuses are within normal limits. Trace right mastoid fluid. Right lens replacement , otherwise the globes and orbital contents are within normal limits. No abnormal enhancing lesion. IMPRESSION: No acute intracranial process. Reviewed, dictated and finalized at location K.
[2023-08-28 14:27] LABS: Glucose Point of Care 178 mg/dl (65-105)
--- NOTE | 2023-08-28 15:48 | ED.WEAKNESS ---
HPI - Weakness General Chief complaint: Weakness <NBA Garcia Last Filed: 08/28/23 15:57> Stated complaint: weakness <NBA Garcia Last Filed: 08/28/23 15:57> Time Seen by Provider: 08/28/23 15:48 <NBA Garcia Last Filed: 08/28/23 15:57> Focused HPI: Patient is a 72 y/o male, with PMH of CHF, intellectual disability, who presents to the ED with c/o weakness and dizziness. Patient states he felt normal yesterday, was helping his dad out in the yard. Today, he has been feeling weak and off balance. States he does not feel steady on his feet. Reports dizziness, described as feeling lightheaded. Denies syncope. Denies recent illness. States he has been eating and drinking normally. Denies pain, CP, focal weakness, N/V, cough, cold sx's. GENERAL: Chronically ill appearing, obese with BMI of 35.2, and in no acute distress. HEAD: Normocephalic, atraumatic. EYES: PERRL/EOMI, conjunctival injection on R. CHEST: Clear to auscultation. ?No respiratory distress. HEART: Regular rate and rhythm.? NEURO: ?Alert and oriented x3. No focal deficits. No pronator drift. [employer] for the blind director strength bilaterally. Patient screened in triage and initial orders placed.? ?Additional care and disposition to be based upon?diagnostic testing and treatment. <Soila Elizabeth PA-C - Last Filed: 08/28/23 15:57> Source: patient and family <NBA Garcia Last Filed: 08/28/23 15:57> Mode of arrival: ambulatory <NBA Garcia Last Filed: 08/28/23 15:57> Limitations: no limitations <NBA Garcia Last Filed: 08/28/23 15:57> History of Present Illness HPI Narrative: agree with HPI <Cesar Diallo MD - Last Filed: 08/28/23 19:35> Related Data Home medications: Home Medications Medication Instructions Recorded Confirmed K-Tab 10 meq PO DAILY 07/06/20 07/06/20 aspirin 81 mg tablet 81 mg PO DAILY 07/06/20 07/06/20 atorvastatin 80 mg tablet (Lipitor) 80 mg PO DAILY 07/06/20 07/06/20 cetirizine 10 mg capsule 10 mg PO DAILY 07/06/20 07/06/20 furosemide 40 mg tablet (Lasix) 40 mg PO DAILY 07/06/20 07/06/20 glipizide 10 mg tablet (Glucotrol) 10 mg PO BID 07/06/20 07/06/20 insulin degludec 100 unit/mL 52 unit subcut DAILY 07/06/20 07/06/20 subcutaneous solution (Tresiba U-100 Insulin) lisinopril 5 mg tablet 5 mg PO DAILY 07/06/20 07/06/20 metformin 1,000 mg tablet 1,000 mg PO BID 07/06/20 07/06/20 (Glucophage) metoprolol succinate 50 mg 50 mg PO DAILY 07/06/20 07/06/20 tablet,extended release 24 hr (Toprol XL) pen needle, diabetic 30 gauge x 07/06/20 07/06/20 1/3 semaglutide 0.25 mg or 0.5 mg (2 0.5 mg subcut WEEKLY 07/06/20 07/06/20 mg/1.5 mL) subcutaneous pen injector <Soila Elizabeth PA-C - Last Filed: 08/28/23 15:57> Allergies/Adverse reactions: Allergies Allergy/AdvReac Type Severity Reaction Status Date / Time No Known Allergies Allergy Verified 07/06/20 16:21 <Soila Elizabeth PA-C - Last Filed: 08/28/23 15:57> Review of Systems Review of Systems: All systems reviewed & are unremarkable except as noted in HPI and below <Cesar Diallo MD - Last Filed: 08/28/23 19:35> Constitutional: Constitutional: Reports no additional constitutional complaints <Cesar Diallo MD - Last Filed: 08/28/23 19:35> ENT: Reports system reviewed and no additional complaints, except as documented <Cesar Diallo MD - Last Filed: 08/28/23 19:35> Cardiovascular: Cardiovascular: Reports no additional cardiovascular complaints <Cesar Diallo MD - Last Filed: 08/28/23 19:35> Respiratory: Respiratory: Reports no additional respiratory complaints <Cesar Diallo MD - Last Filed: 08/28/23 19:35> Musculoskeletal: Musculoskeletal: Reports no additional musculoskeletal complaints <Cesar Diallo MD - Last Filed: 08/28/23 19:35> Neurologic: Reports dizziness, De
--- NOTE | 2023-08-28 15:51 | ECG_ITS ---
SEE SCANNED COPY FOR CONFIRMED REPORT MTDD
[2023-08-28 16:55] LABS: Basophils Percent Auto 0.2 % (0.2-1.2); Eosinophils Percent Auto 0.1 % (0-4.4); Hematocrit 47.7 % (42.0-52.0); Hemoglobin 15.5 g/dL (14.0-18.0); Immature Granulocyte Absolute 0.06 K/mm3 (0.00-0.031); Immature Granulocyte Percent A 0.4 % (0-0.5); Lymphocytes Absolute Auto 0.87 K/mm3 (0.9-3.2); Lymphocytes Percent Auto 5.4 % (18.3-44.2); Mean Corpuscular HGB Conc 32.5 g/dl (32-36); Mean Corpuscular Hemoglobin 30.3 pg (26-34); Mean Corpuscular Volume 93.2 fl (80-100); Mean Platelet Volume 10.7 fl (7.4-10.4); Monocytes Absolute Auto 0.9 K/mm3 (0.1-0.6); Monocytes Percent Auto 5.8 % (2.6-8.5); Neutrophils Absolute Auto 14.3 K/mm3 (1.3-6.7); Neutrophils Percent Auto 88.1 % (45.5-73.1); Platelet Count Result 221 k/mm3 (150-375); Red Blood Count 5.12 M/mm3 (4.6-6.20); Red Cell Distribution Width 13.3 % (11.5-14.5); White Blood Count 16.3 K/mm3 (4.5-10.0)
[2023-08-28 17:06] LABS: Prothrombin Time 13.5 Seconds (11.1-14.7)
[2023-08-28 17:07] LABS: Alanine Aminotransferase 35 U/L (6-50); Alkaline Phosphatase 128 U/L (38-126); Anion Gap 11 mmol/L (4-12); Aspartate Amino Transferase 26 U/L (17-59); Blood Urea Nitrogen 18 mg/dL (9-20); Calcium 9.8 mg/dL (8.4-10.2); Carbon Dioxide 23 mmol/L (22-30); Chloride 105 mmol/L (98-107); Creatine Kinase 138 U/L (55-170); Estimated CRCL calculation 96 ml/min; Estimated Glomerular Filt Rate > 60; Glucose 180 mg/dL (65-110); Magnesium 2.5 mg/dL (1.6-2.3); Partial Thromboplastin Time 24.8 Seconds (22.3-36.8); Potassium 4.8 mmol/L (3.4-5.0); Sodium 139 mmol/L (137-145)
[2023-08-28 17:19] LABS: NT Pro B Type Natriuretic Pept 153 pg/mL (19.9-100); Troponin I < 0.012 ng/mL (0.000-0.034)
[2023-08-28 18:44] LABS: Appearance Urine Clear (Clear); Bilirubin Urine Negative (Negative); Blood Urine Negative (Negative); Color Urine Yellow (Yellow); Glucose Urine UA 3+ mg/dL (Negative); Ketones Urine 3+ mg/dL (Negative); Leukocyte Esterase Ur Negative LEU/UL (Negative); Nitrate Urine Negative (Negative); Protein Urine Negative (Negative); Urobilinogen Urine 0.2 mg/dL (<2.0); pH Urine 5.5 (5.0-9.0)
[2023-08-28 18:47] LABS: Specific Grav Ur 1.056 (1.001-1.035)
[2023-08-28 18:48] LABS: Add Urine Microscopic? NO
--- NOTE | 2023-08-28 19:32 | PC.NURSE ---
this rn assumed care of patient. this rn took patient report from CRISTOFER Bergman.
--- NOTE | 2023-08-28 20:41 | ADMGEN ---
This patient, Jovan Anguiano, was admitted to Medical Room 254-01. Patient/family oriented to hospital policies and general routines including ID bracelet, bed and alarms, visiting hours, pain management, procedures, bathroom and other care routines, personal items, smoking policy, room service/diet, and visiting hours. Information on how to activate the Rapid Response Team has been discussed. Patient/Family are encouraged to report perceived risks to care and to ask questions if they do not understand what they are told or what they should do.
--- NOTE | 2023-08-28 21:21 | PM.IMHP ---
H&P: HPI History of Present Illness Date/Time: 08/28/23 21:21 Chief Complaint: difficulty walking Narrative: This is a 72-year-old male with past medical history significant for intellectual disability, insulin-dependent diabetes mellitus, hypertension, congestive heart failure, morbid obesity. 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 patient could not elaborate much into it. preliminary workup has been essentially nonrevealing. EXAMINATION: CT brain wo con DATE: 08/28/2023 16:18 INDICATION: Generalized weakness. Dizziness. TECHNIQUE: Computed tomography (CT) of the head was performed without intravenous contrast. The mA was adjusted according to patient size. Iterative reconstruction technique was employed. The dose-length product was 605.33 mGy-cm. COMPARISON: Head CT 07/06/2020, brain MRI 07/07/2020 FINDINGS: There are scattered areas of low attenuation in the cerebral white matter. There is no intracranial hemorrhage, acute infarction, or abnormal intracranial mass lesion. The ventricles are normal in size. There are likely changes of right ocular lens replacement surgery. The paranasal sinuses are clear. The mastoid air cells are normal. IMPRESSION: 1. Stable mild nonspecific cerebral white matter disease, which likely represents chronic small vessel ischemic disease. EXAMINATION: XR chest 2V DATE: 08/28/2023 16:23 INDICATION: Weakness. Dizziness. TECHNIQUE: Frontal and lateral views of the chest were obtained. COMPARISON: Chest 2 view 07/06/2020 FINDINGS: There is mild atelectasis in right lower lung zone. No pleural effusion or pneumothorax. The heart size is normal. IMPRESSION: 1. Mild atelectasis in right lower lung zone. EXAMINATION: CTA BRAIN/CAROTID DATE: 08/28/2023 18:09 INDICATION: Dizziness and generalized weakness TECHNIQUE: Computed tomographic angiography (CTA) of the head and neck was performed with 100 mL Omnipaque-350 intravenous contrast. Multiplanar reconstructions and maximum intensity projection 3D-reconstructions of the carotid arteries and of the intracranial arteries were created by the technologist on a separate workstation. Automated exposure control and iterative reconstruction technique were employed.The dose-length product was 1158.04 mGy-cm. COMPARISON: None. ? FINDINGS: Carotid arteries: Visualized aortic arch is normal caliber with no atherosclerosis or dissection. Minimal atherosclerosis at the origin of the great vessels arising from the arch. There is small amount of atherosclerotic plaque with 0% stenosis of the right and left carotid bulbs relative to normal distal artery lumen diameter (NASCET criteria). Cervical portion of the bilateral vertebral arteries are codominant with no hemodynamic significant stenosis. Cervical soft tissues are unremarkable. The visualized upper lungs are clear. Superior mediastinum is unremarkable. Severe cervical spondylosis. Intracranial arteries There is atherosclerotic calcific a cyst at the bilateral carotid siphons without hemodynamically significant stenosis. There is no hemodynamically significant stenosis in the vertebral, basilar and internal carotid arteries. Vertebral arteries are codominant. There are no aneurysms identified.? Both A1 and P1 segments are patent.? Cerebral arterial arborization appears symmetric. No abnormally enhancing brain lesions. IMPRESSION: 1. Small amount of atherosclerotic plaque with 0% stenosis of the right and left carotid bulbs relative to normal distal artery lumen diameter (NASCET criteria). 2. Unremarkable cerebral CT angiogram with no aneurysm, dissection or hemodynamic significant stenosis. Review of Systems Review of Systems: Difficulty walking straight , falling to the sides [facility] Past Medical History Medical History (Updated 08/29/23 @ 03:30 by
[2023-08-29] VITALS (11 sets, daily range): BP systolic 109–131; BP diastolic 43–59; PULSE 59–86; RESP 16; TEMP 36.4–37.3; O2SAT 96–99
--- NOTE | 2023-08-29 | ECHO_ITS ---
Patient Info Name: Jovan Anguiano Age: 72 years : 1950 Gender: Male Ht: 67 in Wt: 256 lbs BSA: 2.40 m2 HR: 99 bpm BP: 120 / 43 mmHg Heart Rhythm: Sinus Rhythm Technical Quality: Good Exam Date: 08/29/2023 6:58 AM Exam Location: Echo Lab Patient Status: Inpatient Admit Date: 08/28/2023 Staff Ordering Physician: Modesta Porras APRN Client Service Associate: Ashley Watkins RDCS Attending Provider: Laureano Rae MD Referring Physician: Chiquita TRIPP; Exam Type: CA echo doppler color flow Study Info Indications - elevated bnp Complete two-dimensional, color flow and Doppler transthoracic echocardiogram is performed. Summary 1. Complete two-dimensional, color flow and Doppler transthoracic echocardiogram is performed. 2. Normal left ventricular size, systolic function with grade 1 diastolic noncompliance. 3. No valvular dysfunction. Left Ventricle Left ventricular chamber dimension is normal. Left ventricular systolic function is normal, estimated at 60-65%. The left ventricular diastolic function is grade I diastolic dysfunction. Right Ventricle Right ventricular chamber dimension is normal. Left Atria Left atrial chamber dimension is normal. Right Atria Right atrial chamber dimension is normal. Aortic Valve The aortic valve is normal. Pulmonic Valve The pulmonic valve is normal. Mitral Valve The mitral valve has normal leaflets. Tricuspid Valve The tricuspid valve leaflets are normal. Pericardium/Pleural The pericardium appears normal. Aorta The aortic root size at the sinus of Valsalva is normal. Report Signatures
--- NOTE | 2023-08-29 08:01 | PM.IMPN ---
Progress Note: A&P Assessment and Plan (1) Stroke-like symptom: Code(s): R29.90 - Unspecified symptoms and signs involving the nervous system Status: Acute Assessment and Plan: 08/29/23: Continue neuro checks q.[address] only showed stable mild nonspecific cerebral white matter disease likely root sibling chronic small-vessel ischemic disease Head and neck CTA only showed small amount of atherosclerotic plaque was 0% stenosis in the right and left carotid bulbs. MRI scheduled for today Echo ordered Neurology consulted PT and OT ordered Continue cardiac monitoring RLE swollen, red, warm to touch, pain with dorsiflexion, US venous doppler ordered Start Lovenox for DVT prophylaxis for now until US comes back (2) Vertigo: Code(s): R42 - Dizziness and giddiness Status: Acute Assessment and Plan: See above plan of care (3) Gait instability: Code(s): R26.81 - Unsteadiness on feet Status: Acute Assessment and Plan: See above plan of care (4) Cellulitis: Code(s): L03.90 - Cellulitis, unspecified Status: Acute Assessment and Plan: 08/29/23: RLE swollen, reddness noted ankle to knee, warm to touch, pain with dorsiflexion, with scaling and scabbed wounds noted bilaterally US venous doppler ordered Will start Ancef and Vancomycin for cellulitis coverage. (5) Hyperlipidemia: Code(s): E78.5 - Hyperlipidemia, unspecified Status: Chronic Assessment and Plan: 08/29/23: Continue aspirin and atorvastatin (6) Diabetes mellitus: Code(s): E11.9 - Type 2 diabetes mellitus without complications Status: Acute Assessment and Plan: 08/29/23: Blood sugars ranging 180-263 Hemoglobin A1c on 07/06/2020 was 9.2, we will recheck this today Accu-Cheks AC and HS Diabetic diet ordered Hypoglycemic protocol in place Metformin and glipizide on hold High-dose sliding scale ordered (7) CHF (congestive heart failure): Code(s): I50.9 - Heart failure, unspecified Status: Acute Assessment and Plan: 08/29/23: Monitor I&O and daily weight Continue metoprolol ER 50 mg daily proBNP 153, Troponin negative Lasix is on hold Continue cardiac monitoring (8) Essential hypertension: Code(s): I10 - Essential (primary) hypertension Status: Chronic Assessment and Plan: 08/29/23: Blood pressure 120/43-142/65 Continue lisinopril Time Spent With Patient Time with patient: Greater than 35 minutes Subjective Date/time seen: 08/29/23 08:01 Interval history: This is a 72-year-old male with a significant past medical history of CHF, diabetes mellitus, hypertension, hyperlipidemia, morbid obesity, intellectual disability who presented to the hospital on 08/28/2023 with complaints of weakness and dizziness. Patient states he was helping his dad out in the yard and when he finished he went inside and became lightheaded, dizzy, felt like his right leg was weak and felt off balance when walking down the hallway of his house. He states that he wasn't able to walk straight. He denies any recent illness, sick contacts, headache, vision changes, fever, chills, nausea, vomiting, diarrhea, abdominal pain, chest pain, shortness of breath. He did say that he was lightheaded, dizzy, gait was abnormal, weakness in right leg, pain and swelling to right lower extremity. He states that he stayed hydrated and was eating throughout the day. He denies any congestion or pain in the ears. He denies history of vertigo. On neuro examination he does have trouble with coordination with his F-N-F test. It took him some time to understand the directions, unsure if this is because of his intellectual disability or if new. He has clear speech, facial features are symmetrical and he has good strength in all 4 extremities. He denies any numbness or tingling and reports that sensation is normal. On examination of his legs he has notable redness
--- NOTE | 2023-08-29 08:01 | P.PNIM_ITS ---
Progress Note: A&P Assessment and Plan (1) Stroke-like symptom: Code(s): R29.90 - Unspecified symptoms and signs involving the nervous system Status: Acute Assessment and Plan: 08/29/23: * Continue neuro checks q.4 hour * CT only showed stable mild nonspecific cerebral white matter disease likely root sibling chronic small-vessel ischemic disease * Head and neck CTA only showed small amount of atherosclerotic plaque was 0% stenosis in the right and left carotid bulbs. * MRI scheduled for today * Echo ordered * Neurology consulted * PT and OT ordered * Continue cardiac monitoring * RLE swollen, red, warm to touch, pain with dorsiflexion, US venous doppler ordered * Start Lovenox for DVT prophylaxis for now until US comes back (2) Vertigo: Code(s): R42 - Dizziness and giddiness Status: Acute Assessment and Plan: See above plan of care (3) Gait instability: Code(s): R26.81 - Unsteadiness on feet Status: Acute Assessment and Plan: See above plan of care (4) Cellulitis: Code(s): L03.90 - Cellulitis, unspecified Status: Acute Assessment and Plan: 08/29/23: * RLE swollen, reddness noted ankle to knee, warm to touch, pain with dorsiflexion, with scaling and scabbed wounds noted bilaterally * US venous doppler ordered * Will start Ancef and Vancomycin for cellulitis coverage. (5) Hyperlipidemia: Code(s): E78.5 - Hyperlipidemia, unspecified Status: Chronic Assessment and Plan: 08/29/23: * Continue aspirin and atorvastatin (6) Diabetes mellitus: Code(s): E11.9 - Type 2 diabetes mellitus without complications Status: Acute Assessment and Plan: 08/29/23: * Blood sugars ranging 180-263 * Hemoglobin A1c on 07/06/2020 was 9.2, we will recheck this today * Accu-Cheks AC and HS * Diabetic diet ordered * Hypoglycemic protocol in place * Metformin and glipizide on hold * High-dose sliding scale ordered (7) CHF (congestive heart failure): Code(s): I50.9 - Heart failure, unspecified Status: Acute Assessment and Plan: 08/29/23: * Monitor I&O and daily weight * Continue metoprolol ER 50 mg daily * proBNP 153, Troponin negative * Lasix is on hold * Continue cardiac monitoring (8) Essential hypertension: Code(s): I10 - Essential (primary) hypertension Status: Chronic Assessment and Plan: 08/29/23: * Blood pressure 120/43-142/65 * Continue lisinopril Time Spent With Patient Time with patient: Greater than 35 minutes Subjective Date/time seen: 08/29/23 08:01 Interval history: This is a 72-year-old male with a significant past medical history of CHF, diabetes mellitus, hypertension, hyperlipidemia, morbid obesity, intellectual disability who presented to the hospital on 08/28/2023 with complaints of weakness and dizziness. Patient states he was helping his dad out in the yard and when he finished he went inside and became lightheaded, dizzy, felt like his right leg was weak and felt off balance when walking down the hallway of his house. He states that he wasn't able to walk straight. He denies any recent illness, sick contacts, headache, vision changes, fever, chills, nausea, vomiting, diarrhea, abdominal pain, chest pain, shortness of breath. He did say that he was lightheaded, dizzy, gait was abnormal, weakness in right leg, pain and swelling to right lower extremity. He states that he stayed hydrated and was eating throughout the day. He denies any congestion or pain in the ears. He denies history
[2023-08-29 08:10] LABS: Glucose Point of Care 130 mg/dl (65-105)
[2023-08-29 08:47] LABS: Basophils Percent Auto 0.3 % (0.2-1.2); Eosinophils Absolute Auto 0.1 K/mm3 (0-0.3); Hematocrit 44.7 % (42.0-52.0); Hemoglobin 14.4 g/dL (14.0-18.0); Immature Granulocyte Absolute 0.07 K/mm3 (0.00-0.031); Immature Granulocyte Percent A 0.6 % (0-0.5); Lymphocytes Absolute Auto 1.56 K/mm3 (0.9-3.2); Lymphocytes Percent Auto 12.4 % (18.3-44.2); Mean Corpuscular HGB Conc 32.2 g/dl (32-36); Mean Corpuscular Hemoglobin 30.6 pg (26-34); Mean Corpuscular Volume 95.1 fl (80-100); Mean Platelet Volume 10.4 fl (7.4-10.4); Monocytes Absolute Auto 1.4 K/mm3 (0.1-0.6); Monocytes Percent Auto 10.8 % (2.6-8.5); Neutrophils Absolute Auto 9.4 K/mm3 (1.3-6.7); Neutrophils Percent Auto 74.9 % (45.5-73.1); Platelet Count Result 187 k/mm3 (150-375); Red Cell Distribution Width 13.2 % (11.5-14.5); White Blood Count 12.6 K/mm3 (4.5-10.0)
[2023-08-29 08:59] LABS: Alanine Aminotransferase 26 U/L (6-50); Albumin Level 4.4 g/dL (3.5-5.1); Alkaline Phosphatase 111 U/L (38-126); Anion Gap 10 mmol/L (4-12); Aspartate Amino Transferase 23 U/L (17-59); Blood Urea Nitrogen 17 mg/dL (9-20); Calcium 9.2 mg/dL (8.4-10.2); Carbon Dioxide 21 mmol/L (22-30); Chloride 104 mmol/L (98-107); Estimated CRCL calculation 118 ml/min; Estimated Glomerular Filt Rate > 60; Glucose 124 mg/dL (65-110); Potassium 4.2 mmol/L (3.4-5.0); Sodium 135 mmol/L (137-145)
[2023-08-29 10:00] LABS: Hemoglobin A1C 9.9 % (<5.7)
[2023-08-29 10:07] LABS: Thyroid Stimulating Hormone 0.228 uIU/mL (0.465-4.680)
[2023-08-29] MEDS: LORATADINE 10 MG TABLET PO (10:09)
[2023-08-29] MEDS: ASPIRIN 81 MG ENTERIC TABLET PO (10:10)
[2023-08-29] MEDS: lisinopriL 5 MG TABLET PO (10:10)
[2023-08-29] MEDS: ATORVASTATIN 40 MG TABLET 80 MG PO (10:10)
[2023-08-29] MEDS: METOPROLOL SUCCINATE EXT REL 50 MG TABCR PO (10:10)
[2023-08-29] MEDS: ENOXAPARIN 40 MG/0.4 ML SYRINGE SUB-Q (10:10)
--- NOTE | 2023-08-29 10:42 | PCOTNOTE ---
The patient occupational therapy was not able to be completed on 08/28 due to RN stating patient is to head to MRI for possible CVA. Will plan to continue evaluate when able.
--- NOTE | 2023-08-29 10:43 | PCPTNOTE ---
per RN, pt is getting going to get MRI for possible CVA, will follow after MRI is complete
[2023-08-29] MEDS: ceFAZolin 2 GM/D5W 50 ML 2 GM/50 ML BAG IVPB ×2 (11:09→17:13)
[2023-08-29] MEDS: VANCOMYCIN 1,500 MG/NS 500 ML BAG 250 MG IVPB (11:43)
[2023-08-29 11:58] LABS: Glucose Point of Care 248 mg/dl (65-105)
[2023-08-29] MEDS: INSULIN ASPART (*BKC) 100 UNITS/ML SUB-Q ×2 (12:15→20:29)
--- NOTE | 2023-08-29 12:16 | WPDNEURCNPN ---
Assessment and Plan Assessment and plan (1) Essential hypertension: Code(s): I10 - Essential (primary) hypertension Status: Chronic (2) Gait instability: Code(s): R26.81 - Unsteadiness on feet Status: Acute (3) Diabetes mellitus: Code(s): E11.9 - Type 2 diabetes mellitus without complications Status: Acute (4) Intellectual disability: Code(s): F79 - Unspecified intellectual disabilities Status: Acute (5) Vertigo: Code(s): R42 - Dizziness and giddiness Status: Acute Plan 1. Intellectually challenged 2. Diabetes mellitus insulin dependent 3. Diabetic neuropathy with the possibility of the autonomic neuropathy as well 4. Negative CTA for the large vessel blockage or aneurysm 5. Surface echocardiogram pending 6 further instruction for the results of the MRI of the brain. Consult date: 08/29/23 HPI: Jovan Anguiano is a 72 year old male admitted to the hospital for the complaints of generalized weakness and dizziness requiring the help by the father to get out of the bed with ongoing history of 1. Congestive heart failure 2. Intellectual disability initial physical examination otherwise was unremarkable medications included aspirin 81mg daily, atorvastatin 80mg daily, furosemide 40mg daily, glipizide 10mg twice a day, insulin 52units subQ daily, lisinopril 5mg daily, metformin 1000mg b.i.d., and metoprolol 50mg daily, does have ongoing history of congestive heart failure, diabetes mellitus hypertension and morbid obesity has smoked 49 years currently everyday smoker no alcohol intake an initial exam in the emergency room has some difficulties on orvfea-[id number]-hdwa-to-finger on the right side vital signs were normal blood sugar 178 with 3+ glycosuria and ketone urea head CT scan normal negative for the bleed and hydrocephalus chest x-ray with mild atelectasis in right lower lung zone head neck CTA with no significant stenosis aneurysm or bleed [facility] Past Medical History Medical History (Updated 08/29/23 @ 10:10 by Maame De Jesus APRN) CHF (congestive heart failure) Diabetes mellitus Essential hypertension Hyperlipidemia Intellectual disability Morbid obesity Surgical History Surgical History (Updated 07/07/20 @ 02:30 by Meaghan Phillips DO) Hx of tonsillectomy Family History Family History Other Unknown family medical history Social History Social History (Updated 07/07/20 @ 07:35 by Meaghan Phillips, DO) Smoking packs per day: 1 Smoking cigarettes per day: 20.0 Years smoked: 49 Smoking pack-years: 49.00 Smoking status: Current every day smoker Tobacco type: cigarettes Additional smoking assessment comments: Started smoking at age of 20; stated he quit in Apr 11 but dad says maybe s Alcohol intake: never Substance use: never Substance use type: does not use Living arrangements: with family Additional living arrangements comments: In [place] with his elderly parents. His parents help provide for his activities of daily living. The patient does not drive. He has 1 sister and 3 brothers. Additional occupation/education comments: He is on disability due to his intellectual impairment. Gender identity (if verbalized by the patient): Male Spiritual care concerns: No Meds Home Medications and Allergies Home Medications Medication Instructions Recorded Confirmed Type K-Tab 10 meq PO DAILY 07/06/20 08/28/23 History aspirin 81 mg tablet 81 mg PO DAILY 07/06/20 08/28/23 History atorvastatin 80 mg tablet (Lipitor) 80 mg PO DAILY 07/06/20 08/28/23 History cetirizine 10 mg capsule 10 mg PO DAILY 07/06/20 08/28/23 History furosemide 40 mg tablet (Lasix) 40 mg PO DAILY 07/06/20 08/28/23 History glipizide 10 mg tablet (Glucotrol) 10 mg PO BID 07/06/20 08/28/23 History insulin degludec 100 unit/mL 40 unit subcut BID 07/06/20 08/28/23 History subcutaneous solution (Tresiba
[2023-08-29 16:59] LABS: Glucose Point of Care 197 mg/dl (65-105)
[2023-08-29 20:13] LABS: Glucose Point of Care 210 mg/dl (65-105)
[2023-08-29] MEDS: INSULIN GLARGINE (*BKC) 100 UNITS/ML 8 UNITS SUB-Q (20:28)
[2023-08-29] MEDS: VANCOMYCIN 1,500 MG/NS 500 ML 1,500 MG/500 ML BAG 250 MG IVPB (20:29)
[2023-08-30] VITALS (11 sets, daily range): BP systolic 100–144; BP diastolic 60–74; PULSE 61–74; RESP 18–22; TEMP 36.3–36.6; O2SAT 97–98
[2023-08-30] MEDS: ceFAZolin 2 GM/D5W 50 ML 2 GM/50 ML BAG IVPB ×3 (03:01→18:08)
[2023-08-30 05:06] LABS: Basophils Percent Auto 0.3 % (0.2-1.2); Eosinophils Absolute Auto 0.2 K/mm3 (0-0.3); Eosinophils Percent Auto 2.3 % (0-4.4); Hematocrit 41.7 % (42.0-52.0); Hemoglobin 13.2 g/dL (14.0-18.0); Immature Granulocyte Absolute 0.04 K/mm3 (0.00-0.031); Immature Granulocyte Percent A 0.4 % (0-0.5); Lymphocytes Absolute Auto 1.73 K/mm3 (0.9-3.2); Lymphocytes Percent Auto 17.1 % (18.3-44.2); Mean Corpuscular HGB Conc 31.7 g/dl (32-36); Mean Corpuscular Hemoglobin 29.9 pg (26-34); Mean Corpuscular Volume 94.6 fl (80-100); Mean Platelet Volume 10.4 fl (7.4-10.4); Monocytes Absolute Auto 1.2 K/mm3 (0.1-0.6); Monocytes Percent Auto 11.8 % (2.6-8.5); Neutrophils Absolute Auto 6.9 K/mm3 (1.3-6.7); Neutrophils Percent Auto 68.1 % (45.5-73.1); Platelet Count Result 174 k/mm3 (150-375); Red Blood Count 4.41 M/mm3 (4.6-6.20); Red Cell Distribution Width 13.2 % (11.5-14.5); White Blood Count 10.1 K/mm3 (4.5-10.0)
[2023-08-30 05:13] LABS: Alanine Aminotransferase 21 U/L (6-50); Albumin Level 3.8 g/dL (3.5-5.1); Alkaline Phosphatase 100 U/L (38-126); Anion Gap 7 mmol/L (4-12); Aspartate Amino Transferase 21 U/L (17-59); Bilirubin,Total 0.6 mg/dL (0.2-1.3); Blood Urea Nitrogen 14 mg/dL (9-20); Calcium 8.7 mg/dL (8.4-10.2); Carbon Dioxide 22 mmol/L (22-30); Chloride 106 mmol/L (98-107); Estimated CRCL calculation 139 ml/min; Estimated Glomerular Filt Rate > 60; Glucose 125 mg/dL (65-110); Sodium 135 mmol/L (137-145)
[2023-08-30 08:00] LABS: Glucose Point of Care 109 mg/dl (65-105)
[2023-08-30 08:59] LABS: Free T4 Free Thyroxine 1.14 ng/mL (0.78-2.19)
[2023-08-30] MEDS: ASPIRIN 81 MG ENTERIC TABLET PO (09:50)
[2023-08-30] MEDS: lisinopriL 5 MG TABLET PO (09:50)
[2023-08-30] MEDS: METOPROLOL SUCCINATE EXT REL 50 MG TABCR PO (09:50)
[2023-08-30] MEDS: ENOXAPARIN 40 MG/0.4 ML SYRINGE SUB-Q (09:50)
[2023-08-30] MEDS: ATORVASTATIN 40 MG TABLET 80 MG PO (09:50)
[2023-08-30] MEDS: LORATADINE 10 MG TABLET PO (09:50)
[2023-08-30] MEDS: VANCOMYCIN 1,500 MG/NS 500 ML 1,500 MG/500 ML BAG 250 MG IVPB (10:38)
[2023-08-30 12:01] LABS: Glucose Point of Care 219 mg/dl (65-105)
[2023-08-30] MEDS: INSULIN ASPART (*BKC) 100 UNITS/ML SUB-Q (12:20)
--- NOTE | 2023-08-30 12:56 | WPDNEUROPN ---
Subjective Date/time seen: 08/30/23 12:56 Interval history: intellectually challenged with ongoing insulin-dependent diabetes mellitus, diabetic neuropathy with autonomic neuropathy, negative CTA for the NE intra or extracranial arterial disease along with the history of hypertension negative right lower extremity for the DVT. normal MRI of the brain, normal CTA of the brain and cervical spine. Repeat neurological examination unchanged. Patient's father was advised that we are dealing with the gait dysfunction because of the underlying diabetic complication with neuropathy he needs to walk with a walker in lighted room setting with no carpet provided the fall. Objective Data Vital Signs Vital Signs: Vital Signs - 24 hr 08/29/23 13:37 08/29/23 16:00 08/29/23 20:45 Temperature 36.4 C L 36.6 C Pulse Rate 75 70 73 Respiratory Rate 16 16 Blood Pressure 113/59 L 109/50 L Pulse Oximetry 97 99 Oxygen Delivery 08/29/23 20:00 08/30/23 00:00 08/29/23 20:22 Temperature Pulse Rate 59 L 66 Respiratory Rate Blood Pressure Pulse Oximetry Oxygen Delivery Room Air 08/30/23 04:00 08/30/23 06:00 08/30/23 08:20 Temperature 36.6 C Pulse Rate 63 61 Respiratory Rate 18 Blood Pressure 100/60 Pulse Oximetry 97 Oxygen Delivery Room Air 08/30/23 09:50 08/30/23 09:52 08/30/23 08:00 Temperature Pulse Rate 68 74 65 Respiratory Rate Blood Pressure 128/74 Pulse Oximetry Oxygen Delivery 08/30/23 10:00 08/30/23 12:00 Temperature Pulse Rate 62 Respiratory Rate Blood Pressure Pulse Oximetry Oxygen Delivery Room Air Intake/Output Intake/Output: Intake & Output 08/27/23 08/28/23 08/29/23 08/30/23 23:59 23:59 23:59 23:59 Intake Total 2740 450 Output Total 400 2275 1000 Balance -400 465 -550 Meds/Results Medications: Active Medications Generic Name Dose Route Start Last Admin Trade Name Freq PRN Reason Stop Dose Admin Acetaminophen 650 mg 08/28/23 19:17 Acetaminophen 325 Mg Tablet PO Q4H PRN Mild Pain (1-3) or Fever Aspirin 81 mg 08/29/23 09:00 08/30/23 09:50 Aspirin 81 Mg Enteric Tablet PO 09/28/23 08:59 81 mg DAILY DAVID Administration Atorvastatin Calcium 80 mg 08/29/23 09:00 08/30/23 09:50 Atorvastatin 40 Mg Tablet PO 80 mg DAILY DAVID Administration Dextrose 12.5 gm 08/29/23 08:19 Dextrose 50% 25 Gm/50 Ml Syringe IV PUSH PRN PRN Hypoglycemia Protocol Enoxaparin Sodium 40 mg 08/29/23 09:00 08/30/23 09:50 Enoxaparin 40 Mg/0.4 Ml Syringe SUB-Q 40 mg DAILY DAVID Administration Glucagon 1 mg 08/29/23 08:19 Glucagon For Inj 1 Mg Vial IM PRN PRN Hypoglycemia Protocol Glucose 15 gm 08/29/23 08:19 Glucose Oral Gel 15 Gm Of Glucse In 37.5 Gm Tube PO PRN PRN Hypoglycemia Protocol Dextrose 1,000 mls @ 100 mls/hr 08/29/23 08:19 Dextrose 5% 1,000 Ml IVPB PRN PRN Hypoglycemia Protocol Cefazolin Sodium 2 gm in 50 mls @ 100 mls/hr 08/29/23 10:00 08/30/23 10:19 Ancef 2 Gm/D5w 50 Ml IVPB Infused Q8H DAVID Infusion Vancomycin HCl 1,500 mg in 500 mls @ 250 mls/hr 08/29/23 21:00 08/30/23 10:38 Vancomycin 1,500 Mg/Ns 500 Ml IVPB 250 mls/hr Q12H DAVID Administration Insulin Aspart 2 - 4 units 08/29/23 21:00 08/29/23 20:29 Insulin Aspart (*Bkc) 100 Units/Ml SUB-Q 2 units HS DAVID Administration Protocol Insulin Aspart 4 - 8 units 08/29/23 12:00 08/30/23 12:20 Insulin Aspart (*Bkc) 100 Units/Ml SUB-Q 5 units TIDWM DAVID Administration Protocol Insulin Glargine 8 units 08/29/23 21:00 08/29/23 20:28 Insulin Glargine (*Bkc) 100 Units/Ml SUB-Q 09/28/23 08:59 8 units HS DAVID Administration Lisinopril 5 mg 08/29/23 09:00 08/30/23 09:50 Lisinopril 5 Mg Tablet PO 5 mg DAILY DAVID Administration Loratadine 10 mg 08/29/23 09:00 08/30/23 09:50 Loratadine 10 Mg Tablet P
--- NOTE | 2023-08-30 16:01 | P.PNIM_ITS ---
Progress Note: A&P Assessment and Plan (1) Chronic deep vein thrombosis (DVT): Code(s): I82.509 - Chronic embolism and thrombosis of unspecified deep veins of unspecified lower extremity Status: Acute Assessment and Plan: US LE reveals L chronic DVT--pt and family unsure of hx -typically chronic DVTs do not migrate but it is above the knee -Recommend calling PCP on thursday / requesting records to see if this was documented before. If it was and it was treated, no further management. if this is a first occurrence or he has hx of DVT but in the other leg (pt thinks his DVT in the past was the right) may consider AC. This is somewhat risky due to new onset 'wobbliness' noted by father. (2) Stroke-like symptom: Code(s): R29.90 - Unspecified symptoms and signs involving the nervous system Status: Acute Assessment and Plan: 08/30/23- MRI with no acute process. He has mild small vessel ischemic disease. Continue ASA 08/29/23: * Continue neuro checks q.4 hour * CT only showed stable mild nonspecific cerebral white matter disease likely root sibling chronic small-vessel ischemic disease * Head and neck CTA only showed small amount of atherosclerotic plaque was 0% stenosis in the right and left carotid bulbs. * MRI scheduled for today * Echo ordered * Neurology consulted * PT and OT ordered * Continue cardiac monitoring * RLE swollen, red, warm to touch, pain with dorsiflexion, US venous doppler ordered * Start Lovenox for DVT prophylaxis for now until US comes back (3) Vertigo: Code(s): R42 - Dizziness and giddiness Status: Acute Assessment and Plan: Pt would benefit from PT -Skilled vs HH being discussed. (4) Gait instability: Code(s): R26.81 - Unsteadiness on feet Status: Acute Assessment and Plan: As above -Discussion of SNF vs HH -check b12 (5) Cellulitis: Code(s): L03.90 - Cellulitis, unspecified Status: Acute Assessment and Plan: 08/30/23-will stop vanc and start oral doxy. Wound is scabbed with no acute discharge. No cx needed -wound care consult tomorrow 08/29/23: * RLE swollen, reddness noted ankle to knee, warm to touch, pain with dorsiflexion, with scaling and scabbed wounds noted bilaterally * US venous doppler ordered * Will start Ancef and Vancomycin for cellulitis coverage. (6) Hyperlipidemia: Code(s): E78.5 - Hyperlipidemia, unspecified Status: Chronic Assessment and Plan: 08/30/23: * Continue aspirin and atorvastatin (7) Diabetes mellitus: Code(s): E11.9 - Type 2 diabetes mellitus without complications Status: Acute Assessment and Plan: Last glucose 219 -Continue SSI and lantus 08/29/23: * Blood sugars ranging 180-263 * Hemoglobin A1c on 07/06/2020 was 9.2, we will recheck this today * Accu-Cheks AC and HS * Diabetic diet ordered * Hypoglycemic protocol in place * Metformin and glipizide on hold * High-dose sliding scale ordered (8) CHF (congestive heart failure): Code(s): I50.9 - Heart failure, unspecified Status: Acute Assessment and Plan: No exacerbation noted at this time -monitor 08/29/23: * Monitor I&O and daily weight * Continue metoprolol ER 50 mg daily * proBNP 153, Troponin negative * Lasix is on hold * Continue cardiac monitoring (9) Essential hypertension: Code(s): I10 - Essential (primary) hypertension Status: Chronic Assessment and Plan
--- NOTE | 2023-08-30 16:01 | PM.IMPN ---
Progress Note: A&P Assessment and Plan (1) Chronic deep vein thrombosis (DVT): Code(s): I82.509 - Chronic embolism and thrombosis of unspecified deep veins of unspecified lower extremity Status: Acute Assessment and Plan: US LE reveals L chronic DVT--pt and family unsure of hx -typically chronic DVTs do not migrate but it is above the knee -Recommend calling PCP on thursday / requesting records to see if this was documented before. If it was and it was treated, no further management. if this is a first occurrence or he has hx of DVT but in the other leg (pt thinks his DVT in the past was the right) may consider AC. This is somewhat risky due to new onset 'wobbliness' noted by father. (2) Stroke-like symptom: Code(s): R29.90 - Unspecified symptoms and signs involving the nervous system Status: Acute Assessment and Plan: 08/30/23- MRI with no acute process. He has mild small vessel ischemic disease. Continue ASA 08/29/23: Continue neuro checks q.[address] only showed stable mild nonspecific cerebral white matter disease likely root sibling chronic small-vessel ischemic disease Head and neck CTA only showed small amount of atherosclerotic plaque was 0% stenosis in the right and left carotid bulbs. MRI scheduled for today Echo ordered Neurology consulted PT and OT ordered Continue cardiac monitoring RLE swollen, red, warm to touch, pain with dorsiflexion, US venous doppler ordered Start Lovenox for DVT prophylaxis for now until US comes back (3) Vertigo: Code(s): R42 - Dizziness and giddiness Status: Acute Assessment and Plan: Pt would benefit from PT -Skilled vs HH being discussed. (4) Gait instability: Code(s): R26.81 - Unsteadiness on feet Status: Acute Assessment and Plan: As above -Discussion of SNF vs HH -check b12 (5) Cellulitis: Code(s): L03.90 - Cellulitis, unspecified Status: Acute Assessment and Plan: 08/30/23-will stop vanc and start oral doxy. Wound is scabbed with no acute discharge. No cx needed -wound care consult tomorrow 08/29/23: RLE swollen, reddness noted ankle to knee, warm to touch, pain with dorsiflexion, with scaling and scabbed wounds noted bilaterally US venous doppler ordered Will start Ancef and Vancomycin for cellulitis coverage. (6) Hyperlipidemia: Code(s): E78.5 - Hyperlipidemia, unspecified Status: Chronic Assessment and Plan: 08/30/23: Continue aspirin and atorvastatin (7) Diabetes mellitus: Code(s): E11.9 - Type 2 diabetes mellitus without complications Status: Acute Assessment and Plan: Last glucose 219 -Continue SSI and lantus 08/29/23: Blood sugars ranging 180-263 Hemoglobin A1c on 07/06/2020 was 9.2, we will recheck this today Accu-Cheks AC and HS Diabetic diet ordered Hypoglycemic protocol in place Metformin and glipizide on hold High-dose sliding scale ordered (8) CHF (congestive heart failure): Code(s): I50.9 - Heart failure, unspecified Status: Acute Assessment and Plan: No exacerbation noted at this time -monitor 08/29/23: Monitor I&O and daily weight Continue metoprolol ER 50 mg daily proBNP 153, Troponin negative Lasix is on hold Continue cardiac monitoring (9) Essential hypertension: Code(s): I10 - Essential (primary) hypertension Status: Chronic Assessment and Plan: 08/29-last bp WNL. -continue lisinopril 08/29/23: Blood pressure 120/43-142/65 Continue lisinopril Plan Plan discussed with pt, parents and Dr. Rae Time Spent With Patient Time with patient: 25 - 35 minutes Subjective Date/time seen: 08/30/23 16:01 Interval history: Pt is a a 72 year old male here for dizziness. Pt was seen today and is alert and oriented x4 but unable answer some questions. He states that he felt dizzy today but overall okay. He denies chest pain, willy
[2023-08-30 17:09] LABS: Glucose Point of Care 155 mg/dl (65-105)
[2023-08-30] MEDS: INSULIN GLARGINE (*BKC) 100 UNITS/ML 8 UNITS SUB-Q (20:33)
[2023-08-30 21:27] LABS: Glucose Point of Care 191 mg/dl (65-105)
[2023-08-31] VITALS: PULSE 66
[2023-08-31] MEDS: ceFAZolin 2 GM/D5W 50 ML 2 GM/50 ML BAG IVPB ×2 (01:11→09:13)
[2023-08-31 04:00] VITALS: PULSE 62
[2023-08-31 05:28] VITALS: BP 117/45; PULSE 66; RESP 18; TEMP 36.8; O2SAT 97
[2023-08-31 05:54] LABS: Basophils Percent Auto 0.6 % (0.2-1.2); Eosinophils Absolute Auto 0.2 K/mm3 (0-0.3); Eosinophils Percent Auto 3.5 % (0-4.4); Hematocrit 43.7 % (42.0-52.0); Hemoglobin 13.8 g/dL (14.0-18.0); Immature Granulocyte Absolute 0.02 K/mm3 (0.00-0.031); Immature Granulocyte Percent A 0.3 % (0-0.5); Lymphocytes Absolute Auto 1.72 K/mm3 (0.9-3.2); Lymphocytes Percent Auto 24.8 % (18.3-44.2); Mean Corpuscular HGB Conc 31.6 g/dl (32-36); Mean Platelet Volume 10.5 fl (7.4-10.4); Monocytes Absolute Auto 0.8 K/mm3 (0.1-0.6); Neutrophils Absolute Auto 4.2 K/mm3 (1.3-6.7); Neutrophils Percent Auto 59.8 % (45.5-73.1); Platelet Count Result 177 k/mm3 (150-375); Red Cell Distribution Width 13.2 % (11.5-14.5); White Blood Count 6.9 K/mm3 (4.5-10.0)
[2023-08-31 06:11] LABS: Alanine Aminotransferase 17 U/L (6-50); Albumin Level 3.9 g/dL (3.5-5.1); Alkaline Phosphatase 102 U/L (38-126); Anion Gap 9 mmol/L (4-12); Aspartate Amino Transferase 20 U/L (17-59); Bilirubin,Total 0.6 mg/dL (0.2-1.3); Blood Urea Nitrogen 14 mg/dL (9-20); Calcium 8.9 mg/dL (8.4-10.2); Carbon Dioxide 23 mmol/L (22-30); Chloride 107 mmol/L (98-107); Estimated CRCL calculation 139 ml/min; Estimated Glomerular Filt Rate > 60; Glucose 154 mg/dL (65-110); Potassium 3.9 mmol/L (3.4-5.0); Sodium 139 mmol/L (137-145)
[2023-08-31 08:00] VITALS: O2SAT 96
[2023-08-31 08:05] LABS: Glucose Point of Care 148 mg/dl (65-105)
[2023-08-31 09:06] VITALS: BP 133/66; PULSE 103; RESP 16; O2SAT 96
[2023-08-31] MEDS: ATORVASTATIN 40 MG TABLET 80 MG PO (09:07)
[2023-08-31] MEDS: ASPIRIN 81 MG ENTERIC TABLET PO (09:07)
[2023-08-31] MEDS: DOXYCYCLINE HYCLATE 100 MG TABLET PO (09:07)
[2023-08-31] MEDS: ENOXAPARIN 40 MG/0.4 ML SYRINGE SUB-Q (09:08)
[2023-08-31] MEDS: lisinopriL 5 MG TABLET PO (09:08)
[2023-08-31 09:09] VITALS: PULSE 103
[2023-08-31] MEDS: METOPROLOL SUCCINATE EXT REL 50 MG TABCR PO (09:09)
[2023-08-31] MEDS: LORATADINE 10 MG TABLET PO (09:09)
--- NOTE | 2023-08-31 11:46 | PM.DS ---
DS: Admitting Diagnosis Discharge Date 08/31/23 Admitting Diagnosis Gait instability Intellectual disability CHF Diabetes mellitus DS: Discharge Diagnosis Discharge Diagnosis (1) Chronic deep vein thrombosis (DVT): Code(s): I82.509 - Chronic embolism and thrombosis of unspecified deep veins of unspecified lower extremity Status: Acute (2) Stroke-like symptom: Code(s): R29.90 - Unspecified symptoms and signs involving the nervous system Status: Acute (3) Vertigo: Code(s): R42 - Dizziness and giddiness Status: Acute (4) Gait instability: Code(s): R26.81 - Unsteadiness on feet Status: Acute (5) Cellulitis: Code(s): L03.90 - Cellulitis, unspecified Status: Acute (6) Hyperlipidemia: Code(s): E78.5 - Hyperlipidemia, unspecified Status: Chronic (7) Diabetes mellitus: Code(s): E11.9 - Type 2 diabetes mellitus without complications Status: Acute (8) CHF (congestive heart failure): Code(s): I50.9 - Heart failure, unspecified Status: Acute (9) Essential hypertension: Code(s): I10 - Essential (primary) hypertension Status: Chronic DS: Summary Hospital Course Reason for hospitalization: Gait instability Intellectual disability CHF Diabetes mellitus Hospital Course: 08/29/23: This is a 72-year-old male with a significant past medical history of CHF, diabetes mellitus, hypertension, hyperlipidemia, morbid obesity, intellectual disability who presented to the hospital on 08/28/2023 with complaints of weakness and dizziness. Patient states he was helping his dad out in the yard and when he finished he went inside and became lightheaded, dizzy, felt like his right leg was weak and felt off balance when walking down the hallway of his house. He states that he wasn't able to walk straight. He denies any recent illness, sick contacts, headache, vision changes, fever, chills, nausea, vomiting, diarrhea, abdominal pain, chest pain, shortness of breath. He did say that he was lightheaded, dizzy, gait was abnormal, weakness in right leg, pain and swelling to right lower extremity. He states that he stayed hydrated and was eating throughout the day. He denies any congestion or pain in the ears. He denies history of vertigo. On neuro examination he does have trouble with coordination with his F-N-F test. It took him some time to understand the directions, unsure if this is because of his intellectual disability or if new. He has clear speech, facial features are symmetrical and he has good strength in all 4 extremities. He denies any numbness or tingling and reports that sensation is normal. On examination of his legs he has notable redness right greater than left with scabbed wounds and scaly skin. Right leg is warm to the touch and swollen. He reports pain in the RLE especially with dorsiflexion. Workup in the hospital included head CT which showed stable mild nonspecific cerebral white matter disease likely representing chronic small vessel ischemic disease.? Chest x-ray showed mild atelectasis in right lower lung zone.? Head and neck CTA showed small amount of atherosclerotic plaque was 0% stenosis on the right and the left carotid bulbs.? Initial labs showed a white blood cell count of 16.3, blood sugar ranging 178-180, alk-phos 128, proBNP 153, trope was negative.? A UA was obtained and showed a high urine specific gravity of 1.056, 3+ glucose, 3+ ketone, otherwise negative.? Patient was only given Zofran and Tylenol in the ED. Plan today is for MRI of the brain and brainstem with without contrast, echocardiogram, Venous US BLE, and Neurology consulted. We will start Ancef and Vancomycin today.? 08/31/23: On examination today patient is alert and oriented x3, lying in the bed. He denies any new complaints today. Labs today showed a hemoglobin of 13.8, blood sugars ranging 148-154, otherwise unremarkable. White blood cell count is down to 6.9 today.
[2023-08-31 12:13] LABS: Glucose Point of Care 193 mg/dl (65-105)
== END 2023-08-31 13:21 | disposition home health service (06) | DRG 74 ==
LOC: ANHED 19:35 → ANH2MED 20:02
PROVIDERS: Physician Assistant; Admitting Provider Internal Medicine; Emergency Provider Emergency Medicine; Visit Provider Nurse Practitioner Acute Care
DX: E11.43 Type 2 diabetes mellitus with diabetic autonomic (poly)neuropathy (principal); I82.512 Chronic embolism and thrombosis of left femoral vein; L03.115 Cellulitis of right lower limb; R26.81 Unsteadiness on feet; I50.9 Heart failure, unspecified; E78.5 Hyperlipidemia, unspecified; R29.90 Unspecified symptoms and signs involving the nervous system; F79 Unspecified intellectual disabilities; F17.210 Nicotine dependence, cigarettes, uncomplicated; Z79.4 Long term (current) use of insulin; Z79.82 Long term (current) use of aspirin
CPT/HCPCS: 36415; 70450; 70496; 70498; 70553; 71046; 80053; 81003; 82550; 82607; 82746; 82948; 83036; 83735; 83880; 84439; 84443; 84484; 85025; 85610; 85730; 93005; 93306; 93970; 97161; 97166; 99285; A9270; A9577; G0378; J0690; J1650; J1815; J3370; Q9967

== ENCOUNTER 2023-11-17 13:53 | Outpatient (CLI) | payer MEDICARE, MEDICAID, SELFPAY ==
--- NOTE | ~2023-11-17 | US_ITS ---
EXAMINATION: US arterial duplex LE DATE: 11/17/2023 15:11 INDICATION: Peripheral arterial disease. Cellulitis of right leg. TECHNIQUE: Multiple grayscale and Doppler ultrasound images of the lower limbs were obtained. COMPARISON: None FINDINGS: In the right lower limb, peak systolic velocity is 86 cm/s in common femoral artery, 38 cm/ s in the femoral artery, 87 cm/s in proximal superficial femoral artery, 98 cm/s in mid superficial f emoral artery, 84 cm/s in distal superficial femoral artery, 124 cm/s in popliteal artery, 95 cm/s in posterior tibial artery, 62 cm/s in peroneal artery, and 48 cm/s in anterior tibial artery. In the left lower limb, peak systolic velocity is 124 cm/s in common femoral artery, 106 cm/s in deep femoral artery, 110 cm/s in proximal superficial femoral artery, 75 cm/s in mid superficial femoral artery, 119 cm/s in distal superficial femoral artery, 119 cm/s in popliteal artery, 105 cm/s in post erior tibial artery, 119 cm/s in peroneal artery, and 64 cm/s in anterior tibial artery. IMPRESSION: 1. Increased velocity gradient between right common femoral artery and right deep femoral artery, con sistent with moderate to severe stenosis. Reviewed, dictated and finalized at location A. IMPRESSION: 1. Increased velocity gradient between right common femoral artery and right de ep femoral artery, consistent with moderate to severe stenosis.
== END 2023-11-17 13:54 | disposition home or self-care (01) ==
LOC: ANHIMG 13:59
PROVIDERS: Visit Provider Nurse Practitioner
DX: L03.115 Cellulitis of right lower limb (principal); R09.89 Other specified symptoms and signs involving the circulatory and respiratory systems
CPT/HCPCS: 93925

== ENCOUNTER 2024-10-13 10:45 | Emergency (ER) | payer MEDICARE, MEDICAID, SELFPAY ==
--- NOTE | ~2024-10-13 | XR_ITS ---
XR chest 2V Ordering provider: Subha Mcfarland APRN History: 73 years Male with . cough x 1 wk; hx of HTN, CHF, smoker . Comparison: August 28, 2023 FINDINGS: MEDIASTINUM: The cardiac silhouette is not enlarged. LUNGS: No effusions or pneumothorax. Minimal opacification in the posterior costophrenic angle most likely on the left side. Underlying em physematous changes. OTHER: No free air under the diaphragm. Healing fractures in the left upper thoracic ribs. Degenerati ve the spine. IMPRESSION: Opacification in the posterior costophrenic angle most likely on the left side suggestive of atelecta sis versus pneumonia. Clinical correlation advised. Reviewed, dictated and finalized at location A. IMPRESSION: Opacification in the posterior costophrenic angle most likely on the left side suggestive of atelectasis versus pneumonia. Clinical correlation advised.
[2024-10-13 10:53] VITALS: BP 145/77; PULSE 89; RESP 16; TEMP 36.5; O2SAT 96
--- NOTE | 2024-10-13 11:16 | ED.URI ---
HPI - URI/Sore Throat General Chief Complaint: Upper Respiratory Infection Stated Complaint: Upper Respiratory Symptoms Source: patient and family (brother ) Mode of arrival: ambulatory Limitations: no limitations History of Present Illness HPI Narrative: Patient is a 73 year old male with a history of being mentally handicap presents to the clinic with his brother for complaints of nasal congestion and a productive cough x 2 weeks. He has not been taking anything over the counter. Denies any shortness of breath, nausea, vomiting, diarrhea, or fevers. Related Data Home Medications ?Medication ?Instructions ?Recorded ?Confirmed ?Last Taken ?Type K-Tab 10 meq PO DAILY 07/06/20 08/28/23 Unknown History aspirin 81 mg tablet 81 mg PO DAILY 07/06/20 08/28/23 Unknown History atorvastatin 80 mg tablet (Lipitor) 80 mg PO DAILY 07/06/20 08/28/23 Unknown History cetirizine 10 mg capsule 10 mg PO DAILY 07/06/20 08/28/23 Unknown History furosemide 40 mg tablet (Lasix) 40 mg PO DAILY 07/06/20 08/28/23 Unknown History glipizide 10 mg tablet (Glucotrol) 10 mg PO BID 07/06/20 08/28/23 Unknown History insulin degludec 100 unit/mL 40 unit subcut BID 07/06/20 08/28/23 Unknown History subcutaneous solution (Tresiba U-100 Insulin) lisinopril 5 mg tablet 5 mg PO DAILY 07/06/20 08/28/23 Unknown History metformin 1,000 mg tablet 1,000 mg PO BID 07/06/20 08/28/23 Unknown History (Glucophage) metoprolol succinate 50 mg 50 mg PO DAILY 07/06/20 08/28/23 Unknown History tablet,extended release 24 hr (Toprol XL) pen needle, diabetic 30 gauge x 07/06/20 08/28/23 Unknown History 1/3 lisinopril 10 mg tablet mg 10/13/24 Unknown History potassium chloride 10 mEq meq PO 10/13/24 Unknown History tablet,extended release primidone 50 mg tablet mg 10/13/24 Unknown History tirzepatide 7.5 mg/0.5 mL mg subcut 10/13/24 Unknown History subcutaneous pen injector (Onofreunraquelro) Allergies Allergy/AdvReac Type Severity Reaction Status Date / Time No Known Allergies Allergy Verified 10/13/24 10:59 Review of Systems Review of Systems: CONSTITUTIONAL: Denies body aches, fever, chills, or sweats. EYES: Denies visual changes, redness, or discharge. ENT: Reports congestion. Denies rhinorrhea, sore throat, or otalgia. CARDIOVASCULAR: Denies chest pain, palpitations, or edema. RESPIRATORY: Reports productive cough. Denies dyspnea. GASTROINTESTINAL: Denies abdominal pain, nausea, vomiting, or diarrhea. GENITOURINARY: Denies dysuria or hematuria. SKIN: Denies rash, itching, or wounds. MUSCULOSKELETAL: Denies back pain, joint pain, or myalgia. NEUROLOGIC: Denies headache, numbness, tingling, or weakness. PSYCH: Denies depression or anxiety. All systems reviewed & are unremarkable except as noted in HPI and below PMFSH Past Medical History Medical History CHF (congestive heart failure) Hyperlipidemia Intellectual disability Morbid obesity Essential hypertension Diabetes mellitus Surgical History Surgical History Hx of tonsillectomy Family History Family History Other Unknown family medical history Social History Social History Smoking packs per day: 1 Smoking cigarettes per day: 20.0 Years smoked: 49 Smoking pack-years: 49.00 Smoking status: Current every day smoker Tobacco type: cigarettes Additional smoking assessment comments: Started smoking at age of 20; stated he quit in Apr 11 but dad says maybe s Alcohol intake: never Substance use: never Substance use type: does not use Living arrangements: with family Additional living arrangements comments: In [place] with his elderly parents. His parents help provide for his activities of daily living. The patient does not drive. He has 1 sister and 3 brothers. Additional occupation/education comments: He is on disability due to his intellectual impairment. Gender identity (if verbalized by the patient): Male Spiritual care concerns: No Comments At time of signature, I have reviewed and agree with nursing past medical, surgical, social and family history unless otherwise noted. Please see nursing chart for further information. There is no relevant family history pertinent to the presenting complaint. Exam Narrative: GENERAL: Well-appearing, well-nourished, and in no acute distress. EYES: EOMI. No redness or drainage. Conjunctivae normal. ENT: Mucous membranes pink and moist. Nares clear. No rhinorrhea. TMs ceruminous bilaterally. Throat Erythematous without tonsillar exudate, uvula midline. Nasal congestion noted. NECK: Normal AROM. Supple. No lymphadenopathy. CHEST: Decreased breath sounds with auscultation. No respiratory distress. HEART: Regular rate and rhythm. No murmur appreciated. Normal peripheral pulses. ABDOMEN: Soft, nontender, nondistended, normal active bowel sounds. SKIN: Warm, dry, no rash. Capillary refill normal. Normal skin turgor. NEURO: No focal deficits. Alert and oriented x3. Gait steady. PSYCH: Normal affect. No signs of depression or anxiety. Course Course Level of Care: Express Care Visit Vital Signs Vital signs: Vital Signs Temperature 97.7 F 10/13/24 10:53 Pulse Rate 89 10/13/24 10:53 Respiratory Rate 16 10/13/24 10:53 Blood Pressure 145/77 H 10/13/24 10:53 Pulse Oximetry 96 10/13/24 10:53 Temperature 97.7 F 10/13/24 10:53 Pulse Rate 89 10/13/24 10:53 Respiratory Rate 16 10/13/24 10:53 Blood Pressure 145/77 H 10/13/24 10:53 Pulse Oximetry 96 10/13/24 10:53 Reviewed. MDM - URI/Sore Throat MDM Narrative Medical decision making narrative: Discussed physical exam findings. CXR shows pneumonia. Augmentin, Doxycycline, and Albuterol inhaler prescriptions given. Advised supportive measures and signs/symptoms to go to the ER. Pt is appropriate for outpt treatment and follow up. Differential Diagnosis Differential diagnosis: Likely upper respiratory infection, sinusitis, bronchitis and other (pneumonia) Imaging Data Radiologist's impression: ITS Impressions Chest X-Ray 10/13/24 11:21 IMPRESSION: Opacification in the posterior costophrenic angle most likely on the left side suggestive of atelectasis versus pneumonia. Clinical correlation advised. Critical Care Time Critical Care Time Critical Care Time: No Discharge Plan Discharge Clinical Impression: Pneumonia Qualifiers: Pneumonia type: due to unspecified organism Laterality: left Lung location: unspecified part of lung Qualified Code(s): J18.9 - Pneumonia, unspecified organism Patient Disposition: Home Condition: Stable Instructions: Bacterial Pneumonia (DC) Additional Instructions: Pneumonia is a lung infection that can cause a fever, cough, and trouble breathing. How it spreads: When someone with bacterial pneumonia coughs, sneezes, or talks, they release respiratory droplets into the air that can be inhaled by others. You can also get pneumonia by touching a contaminated surface or object and then touching your mouth or nose. You're generally contagious for around 48 hours after starting antibiotics and your fever goes away. To prevent the spread of pneumonia, you can: ? Get vaccinated ? Wash your hands often with soap and water for 20 seconds ? Cover your mouth with a tissue when you cough or sneeze ? Avoid people who are already sick with pneumonia ? Stay home when you have pneumonia Take antibiotics as directed until complete. Use inhaler as prescribed. Eat small frequent meals. Get lots of rest and drink fluids. Alternate Tylenol and ibuprofen for pain/fever Mcvu-qbx-wcdryed cough medication can cause drowsiness, take according to package directions If you have nasal congestion, you can take Zyrtec, Claritin along with Flonase spray Call your Primary Care Doctor and make a follow-up appointment in 3 days. Go to the ER for worsening symptoms or concerns Patient Language: Slovenian Prescriptions: New amoxicillin-pot clavulanate 875-125 mg tablet 1 tablet PO Q12H 7 Days Qty: 14 0RF doxycycline hyclate 100 mg capsule 100 mg PO BID 5 Days Qty: 10 0RF albuterol sulfate [Ventolin HFA] 90 mcg/actuation HFA aerosol inhaler 2 puff inhalation QID PRN (Reason: shortness of breath or wheezing) Qty: 6.7 0RF No Action primidone 50 mg tablet potassium chloride 10 mEq tablet extended release PO lisinopril 10 mg tablet Mounjaro 7.5 mg/0.5 mL pen injector SUBCUT furosemide [Lasix] 40 mg Tablet 40 mg PO DAILY atorvastatin [Lipitor] 80 mg Tablet 80 mg PO DAILY metoprolol succinate [Toprol XL] 50 mg Tablet Extended Release 24 Hr 50 mg PO DAILY glipizide [Glucotrol] 10 mg Tablet 10 mg PO BID metformin [Glucophage] 1,000 mg Tablet 1,000 mg PO BID aspirin 81 mg Tablet 81 mg PO DAILY lisinopril 5 mg Tablet 5 mg PO DAILY (DME) pen needle, diabetic 30 gauge x 1/3 Needle MISCELLANEOUS cetirizine 10 mg Capsule 10 mg PO DAILY insulin degludec [Tresiba U-100 Insulin] 100 unit/mL Solution 40 unit SUBCUT BID K-Tab tablet 10 meq PO DAILY doxycycline hyclate 100 mg Tablet 100 mg PO DAILY Qty: 8 0RF cephalexin 500 mg capsule 500 mg PO Q6H 8 Days Qty: 32 0RF Follow-up/Referrals: PHYSICIAN,COMPLIANCE REPRESENTATIVE DEALER [Primary Care Provider] - Time of Disposition: 11:34
== END 2024-10-13 11:38 | disposition home or self-care (01) ==
DX: J18.9 Pneumonia, unspecified organism (principal); I11.0 Hypertensive heart disease with heart failure; I50.9 Heart failure, unspecified; E78.5 Hyperlipidemia, unspecified; E11.9 Type 2 diabetes mellitus without complications; Z79.4 Long term (current) use of insulin; Z79.84 Long term (current) use of oral hypoglycemic drugs; F79 Unspecified intellectual disabilities; E66.01 Morbid (severe) obesity due to excess calories; Z79.82 Long term (current) use of aspirin
CPT/HCPCS: 71046; 99213; G0463

== ENCOUNTER 2024-12-26 08:03 | Outpatient (CLI) | payer MEDICARE, MEDICAID, SELFPAY ==
--- OUTSIDE RECORDS SUMMARY | 2024-12-26 08:25 | XMS_ITS | Encounter Summary ---
Author Organization [facility] Healthcare Address [address] [place] [id number] Care Team Providers Care Information Systems Operator Name Role Phone Gabo Nicholas MD Unavailable [phone] Chapito Urias MD Unavailable [phone] Wanda Martin NP Primary Care Provider [phone] Reason for Visit * Reason Onset Date Comments Medical Question/Miscellaneous 12/26/2024 Encounter Details Date Type Department Care Team (Late st Contact Info) Description 12/26/2024 Telephone [facility] Medical Group Family Medicine [address] [facility] [address] [place] [address] Wanda Martin NP [address] [facility] [address] [place] [address] Medical Question/Miscellaneous Social History Tobacco Use Types Packs/Day Years Used Date Smoking Tobacco: Some Days Cigarettes Smokeless Tobacco: Never Alcohol Use Standard Drinks/Week Comments Never 0 (1 standard drink = 0.6 oz pur e alcohol) [facility] Utilities Answer Date Recorded In the past 12 months has [employer], gas, oil, or water [employer] threatened to shut off services in your home? No 11/25/2024 Social Connection and Isolation Panel Answer Date Recorded In a typical week, how many times do you talk on the phone with family, friends, or neighbors? Three times a week 11/25/2024 How often do you get togethe r with friends or relatives? Three times a week 11/25/2024 How often do you attend [facility] or taoism services? More than 4 times per year 11/25/2024 Do you belong to any clubs o r organizations such as islam groups, unions, fraternal or athletic groups, or school groups? Yes 11/25/2024 How often do you attend meet ings of the clubs or organizations you belong to? Never 11/25/2024 Are you , , di vorced, , never , or living with a partner? Never 11/25/2024 PHQ-2 Answer Date Recorded PHQ-2 Total Score (If total score is 3 or more points, staff should administer the PHQ-9) 0 11/30/2024 Hunger Vital Sign Answer Date Recorded Within the past 12 months, y ou worried that your food would run out before you got the money to buy more. Never true 11/26/19 25 Within the past 12 months, t he food you bought just didn't last and you didn't have money to get more. Never true 11/25/2024 PRAPARE - Transportation Answer Date Re corded In the past 12 months, has l ack of transportation kept you from medical appointments or from getting medications? No 11/2024 In the past 12 months, has l ack of transportation kept you from meetings, work, or from getting things needed for daily living? No 11/25/2024 Housing Stability Vital Sign Answer Mohit e Recorded In the last 12 months, was t here a time when you were not able to pay the mortgage or rent on time? No 11/25/2024 Number of Times Moved in the Last Year Not on fi le 11/25/2024 At any time in the past 12 m [facility], were you homeless or living in a residential (including now)? No 11/25/2024 AUDIT-C Answer Date Recorded Q1: How often do you have a drink containing alcohol? Never 11/30/2024 Q2: How many drinks containi ng alcohol do you have on a typical day when you are drinking? Patient does not drink Q3: How often do you have si x or more drinks on one occasion? Never 11/30/2024 Sex and Gender Information Value Date Recorded Sex Assigned at Not on file Legal Sex Male 8:24 AM CDT Gender Identity Not on file Sexual Orientation Not on file documented as of this encounter Miscellaneous Notes * Telephone Encounter - Tricia Eid - 12/26/2024 8:08 AM CDT Medical Question/Miscellaneous Caller???s Concern: Anna with [facility] calling as patient is there to have labs drawn but they do not have any orders. Warm transferred. Does message need to be routed? No documented in this encounter Plan of Treatment Not on file documented as of this encounter Visit Diagnoses Not on filedocumented in this encounter Care Teams Information Systems Operator Relationship Specialty Start Date End Date Wanda Martin NP [address] [facility] [address] [place], [place] [id number] PCP - General Internal Medicine 11/30/24 Gabo Nicholas MD Consulting Physician Interventional Cardiology 09/17/18 Chapito Urias MD [address] [facility] [address] [place] [address] Consulting Physician Vascular Surgery 09/17/18 documented as of this encounter
--- OUTSIDE RECORDS SUMMARY | 2024-12-26 08:25 | XMS_ITS | Encounter Summary ---
Author Organization [facility] Facility Care Team Providers Care Otolaryngology Nurse Name Role Phone Aurelia Ivan MD Primary Care Provider [phone] Gabo Nicholas MD Unavailable [phone] Chapito Urias MD Unavailable [phone] Dionicio Ruano MD Primary Care Prov ider Harrison Rogers STRATEGIC PLANNER Unavailable [phone] Wanda Martin NP Primary Care Provider [phone] Encounter Details Date Type Department Care Team (Latest Contact Info) Description 10/02/2015 Orders Only [facility] CLINCONV Provider, MD Sascha [address] [place] [id number] Social History Tobacco Use Types Packs/Day Years Used Date Smoking Tobacco: Never Assessed Sex and Gender Information Value Date Recorded Sex Assigned at Not on file Legal Sex Male 8:24 AM CDT Gender Identity Not on file Sexual Orientation Not on file documented as of this encounter Plan of Treatment Not on file documented as of this encounter Procedures Procedure Name Priority Date/Time Associated Diagnosis Comments PROCEDURE - RESULT 10/02/2015 12 :00 AM CDT PROCEDURE - RESULT 09/04/2015 12 :00 AM CDT documented in this encounter Results * PROCEDURE - RESULT (10/02/2015 12:00 AM CDT) Narrative 10/02/2015 12:00 AM CDT Ordered by an unspecified provider. Historical Provider Final Res ult * PROCEDURE - RESULT (09/04/2015 12:00 AM CDT) Narrative 09/04/2015 12:00 AM CDT Ordered by an unspecified provider. Historical Provider Final Res ult documented in this encounter Visit Diagnoses Not on filedocumented in this encounter Care Teams Otolaryngology Nurse Relationship Specialty Start Date End Date Aurelia Ivan MD PCP - General Family Medicine 08/11/18 10/17/24 Dionicio Ruano MD [address] [facility] [address] [place] [address] PCP - General Family Medicine 10/18/24 11/29/24 Wanda Martin NP [address] [facility] [address] [place] [address] PCP - General Internal Medicine 11/30/24 Gabo Nicholas MD Consulting Physician Interventional Cardiology 09/17/18 Chapito Urias MD [address] [facility] [address] [place] [address] Consulting Physician Vascular Surgery 09/17/18 Harrison Rogers LCSW [address] [place] [address] [address] [place] [address] Reading Teacher 11/17/24 12/04/24 documented as of this encounter
--- OUTSIDE RECORDS SUMMARY | 2024-12-26 08:25 | XMS_ITS | Encounter Summary ---
Author Organization [facility] Facility Care Team Providers Care Rigger Up Name Role Phone Aurelia Ivan MD Primary Care Provider [phone] Gabo Nicholas MD Unavailable [phone] Chapito Urias MD Unavailable [phone] Dionicio Ruano MD Primary Care Prov ider Harrison Rogers CHURCH HISTORY PROFESSOR Unavailable [phone] Wanda Martin NP Primary Care Provider [phone] Encounter Details Date Type Department Care Team (Latest Contact Info) Description 07/27/2015 Orders Only [facility] CLINCONV Provider, MD Sascha [address] [place], [place] [id number] Social History Tobacco Use Types Packs/Day Years [...] Procedure Name Priority Date/Time Associated Diagnosis Comments SCAN - LABS 08/01/2015 12:00 AM CDT documented in this encounter Results * SCAN - LABS (08/01/2015 12:00 AM CDT) Narrative 08/01/2015 12:00 AM CDT Ordered by an unspecified provider. us Historical Provider Final Res ult documented in this encounter Visit Diagnoses Not on filedocumented in this encounter Care Teams Rigger Up Relationship Specialty Start Date End Date Aurelia Ivan MD PCP - General Family Medicine 08/11/18 10/17/24 Dionicio Ruano MD [address] [facility] [address] [place] [address] PCP - General Family Medicine 10/18/24 11/29/24 Wanda Martin, SVP CHIEF MARKETING OFFICER [address] [facility] [address] [facility] [address] [place] [address] PCP - General Internal Medicine 11/30/24 Gabo Nicholas MD Consulting Physician Interventional Cardiology 09/17/18 Chapito Urias MD [address] [facility] [address] [place] [address] Consulting Physician Vascular Surgery 09/17/18 Harrison Rogers LCSW [address] [place] [address] [address] [place] [address] Sfdc Architect 11/17/24 12/04/24 documented as of this encounter
--- OUTSIDE RECORDS SUMMARY | 2024-12-26 08:25 | XMS_ITS | Encounter Summary ---
Author Organization [facility] Address [address] [facility] [address] [place] [address] Care Team Providers Care Improvement Analyst Name Role Phone Aurelia Ivan MD Primary Care Provider [phone] Gabo Nicholas MD Unavailable [phone] Chapito Urias MD Unavailable [phone] Dionicio Ruano MD Primary Care Prov ider Harrison RogersW Unavailable [phone] Wanda Martin NP Primary Care Provider [phone] Encounter Details Date Type Department Care Team (Late st Contact Info) Description 08/01/2015 Orders Only [facility] Health Information Management [address] [place] [id number] Scanning, Provider Social History Tobacco Use Types Packs/Day Years [...] Procedure Name Priority Date/Time Associated Diagnosis Comments CARDIOLOGY DOCUMENT SCAN 08/01/2015 documented in this encounter Results * SCAN - CARDIOLOGY (08/01/2015) Anatomical Region Laterality Modality Other us Provider Scanning CV CARDIAC SERVICES PROCEDURES Final Result documented in this encounter Visit Diagnoses Not on filedocumented in this encounter Care Teams Improvement Analyst Relationship Specialty Start Date End Date Aurelia Ivan MD PCP - General Family Medicine 08/11/18 10/17/24 Dionicio Ruano MD [address] [facility] [place] [address] PCP - General Family Medicine 10/18/24 11/29/24 Wanda Martin, OFFICE CLIN ASST [address] [place] [address] [address] [place] [address] PCP - General Internal Medicine 11/30/24 Gabo Nicholas MD Consulting Physician Interventional Cardiology 09/17/18 Chapito Urias MD [address] [facility] [place] [address] Consulting Physician Vascular Surgery 09/17/18 Harrison Rogers LCSW [address] [place] [address] [address] [place] [address] Thai Masseur 11/17/24 12/04/24 documented as of this encounter
--- OUTSIDE RECORDS SUMMARY | 2024-12-26 08:25 | XMS_ITS | Encounter Summary ---
Author Organization [facility] Facility Care Team Providers Care Or Assistant Name Role Phone Aurelia Ivan MD Primary Care Provider [phone] Gabo Nicholas MD Unavailable [phone] Chapito Urias MD Unavailable [phone] Dionicio Ruano MD Primary Care Prov ider Harrison Rogers SNOW REMOVING SUPERVISOR Unavailable [phone] Wanda Martin NP Primary Care Provider [phone] Encounter Details Date Type Department Care Team (Latest Contact Info) Description 09/10/2015 Orders Only [facility] Provider, MD Sascha [address] [place], [place] [id number] Social History Tobacco Use Types Packs/Day Years [...] Date/Time Associated Diagnosis Comments SCAN - LABS 09/10/2015 12:00 AM CDT documented in this encounter Results * SCAN - LABS (09/10/2015 12:00 AM CDT) Narrative 09/10/2015 12:00 AM CDT Ordered by an unspecified provider. us Historical Provider Final Res ult documented in this encounter Visit Diagnoses Not on filedocumented in this encounter Care Teams Or Assistant Relationship Specialty Start Date End Date Aurelia Ivan MD PCP - General Family Medicine 08/11/18 10/17/24 Dionicio Ruano MD [address] [place] [address] PCP - General Family Medicine 10/18/24 11/29/24 Wanda Martin, LABORATORY CHEMICAL ASSISTANT [address] [facility] [address] [place] [address] PCP - General Internal Medicine 11/30/24 Gabo Nicholas MD Consulting Physician Interventional Cardiology 09/17/18 Chapito Urias MD [address] [place] [address] Consulting Physician Vascular Surgery 09/17/18 Harrison Rogers LCSW [address] [place] [address] [address] [place] [address] Deputy Felony Clerk 11/17/24 12/04/24 documented as of this encounter
--- OUTSIDE RECORDS SUMMARY | 2024-12-26 08:25 | XMS_ITS | Encounter Summary ---
Author Organization [facility] Facility Care Team Providers Care Rn Urgent Care Name Role Phone Aurelia Ivan MD Primary Care Provider [phone] Gabo Nicholas MD Unavailable [phone] Chapito Urias MD Unavailable Dionicio Ruano MD Primary Care Prov ider Harrison Rogers FARM HAND Unavailable [phone] Wanda Martin NP Primary Care Provider [phone] Encounter Details Date Type Department Care Team (Latest Contact Info) Description 08/01/2015 Orders Only [facility]INCON[facility] Provider, MD Sascha [address] [place], [place] [id number] Social History Tobacco Use Types Packs/Day Years [...] on filedocumented in this encounter Care Teams Rn Urgent Care Relationship Specialty Start Date End Date Aurelia Ivan MD PCP - General Family Medicine 08/11/18 10/17/24 Dionicio Ruano MD [address] [place] [address] PCP - General Family Medicine 10/18/24 11/29/24 Wanda Martin, PRODUCT ASSEMBLER [address] [facility] [address] [place] [address] PCP - General Internal Medicine 11/30/24 Gabo Nicholas MD Consulting Physician Interventional Cardiology 09/17/18 Chapito Urias MD [address] [facility] [address] [place] [address] Consulting Physician Vascular Surgery 09/17/18 Harrison Rogers LCSW [address] [place] [address] [address] [place] [address] Billboard Poster 11/17/24 12/04/24 documented as of this encounter
--- OUTSIDE RECORDS SUMMARY | 2024-12-26 08:25 | XMS_ITS | Encounter Summary ---
Author Organization [facility] Facility Care Team Providers Care Cementing Machine Operator Name Role Phone Aurelia Ivan MD Primary Care Provider [phone] Gabo Nicholas MD Unavailable [phone] Chapito Urias MD Unavailable [phone] Dionicio Ruano MD Primary Care Prov ider Harrison Rogers BOILERMAKER WELDER Unavailable [phone] Wanda Martin NP Primary Care Provider [phone] Encounter Details Date Type Department Care Team (Latest Contact Info) Description 05/11/2015 Orders Only [facility]INCONV Provider, MD Sascha [address] [place], [place] [id number] Social History Tobacco Use Types Packs/Day Years [...] Date/Time Associated Diagnosis Comments SCAN - LABS 07/26/2015 12:00 AM CDT documented in this encounter Results * SCAN - LABS (07/26/2015 12:00 AM CDT) Narrative 07/26/2015 12:00 AM CDT Ordered by an unspecified provider. us Historical Provider Final Res ult documented in this encounter Visit Diagnoses Not on filedocumented in this encounter Care Teams Cementing Machine Operator Relationship Specialty Start Date End Date Aurelia Ivan MD PCP - General Family Medicine 08/11/18 10/17/24 Dionicio Ruano MD [address] [facility] [address] [place] [address] PCP - General Family Medicine 10/18/24 11/29/24 Wanda Martin, REVENUE ENFORCEMENT AGENT [address] [facility] [address] [facility] [address] [place] [address] PCP - General Internal Medicine 11/30/24 Gabo Nicholas MD Consulting Physician Interventional Cardiology 09/17/18 Chapito Urias MD [address] [facility] [address] [place] [address] Consulting Physician Vascular Surgery 09/17/18 Harrison Rogers LCSW [address] [place] [address] [address] [place] [address] Cutting Table Operator 11/17/24 12/04/24 documented as of this encounter
--- OUTSIDE RECORDS SUMMARY | 2024-12-26 08:25 | XMS_ITS | Clinical Summary ---
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 30 tablet 04/02/20 20 Active atorvastatin (LIPITOR) 80 mg tablet TAKE ONE TABLET BY MOUTH ONCE DAILY AT 8 A.M. 30 tablet 04/02/20 20 Active glipiZIDE (GLUCOTROL) 10 mg tablet Take 1 tablet (10 mg total) by mouth 2 (two) times a day before breakfast and lunch 60 tablet 10/28/19 25 Active primidone (MYSOLINE) 50 mg tablet Take 1.5 tablets (75 mg total) by mouth 2 (two) times a day Active furosemide (LASIX) 40 mg tablet Take 1 tablet (40 mg total) by mouth daily 90 tablet 1 12/01/19 25 Active tirzepatide (Mounjaro) 2.5 mg/0.5 mL pen injector injection Inject 0.5 mL (2.5 mg total) under the skin once a week 2 mL 6 12/08/19 25 Active insulin glargine 100 unit/mL (3 mL) pen for injection Inject 50 Units under the skin every 12 (twelve) hours 90 mL 3 12/08/19 25 Active furosemide (LASIX) 40 mg tablet Take 1 tablet (40 mg total) by mouth daily 30 tablet 01/18/20 19 025 Discontinued(Re order) empagliflozin (JARDIANCE) 10 mg tabletIndicati ons:Heart Failure,heart failure associated with type 2 diabetes mellitus Take 1 tablet (10 mg total) by mouth once for 1 dose 1 tablet 11/16/19 25 025 Discontinued insulin glargine 100 unit/mL (3 mL) pen for injection Inject 40 Units under the skin every 12 (twelve) hours 24 mL 11/23/19 25 025 Discontinued(Re order) Active Problems Problem Noted Date Diagnosed Date Class 3 severe obesity due t o excess calories with serious comorbidity and body mass index (BMI) of 40.0 to 44.9 in adult 11/30/2024 Bilateral leg edema 11/30/2024 Mixed hyperlipidemia due to type 2 diabetes acsota itus 11/30/2024 Uncontrolled diabetes mellit us with hyperglycemia, with long-term current use of insulin 10/27/2024 Assessment & Plan (11/15/2024 3:49 PM CDT): - Pt is currently taking 40 units AM, 20 units at 2pm/3pm, and 40 Units PM (100 units). - Tx compliance and adherence is a big concern. - Dad says he's not he's not feeding him well. - BG running in 200s and 300s PM. Better in AM. - Caregiver is his father who's 91 yo male. - Pt is to establish care with nearest provider in [facility]. Plan: - Life style changes- With diet and exercise - [employer] nurse educator - Recommend A1C in 3 months. - Glipizide 10 mg bid, Lantus 40 bid. - Referrals- Product Test Engineer and diabetic nurse educator - [facility] - Director [employer] referral - Recommend eye exam- future appt is scheduled per patient. - Start Jardiance 10 mg, once daily - F/u with PCP Hypertension associated with diabetes 10/27/2024 Obesity (BMI 35.0-39.9 without comorbidity) 04/2024 Assessment & Plan (10/18/2024 3:39 PM CDT): BMI today is 36.3. Check labs. Orders: Lipid panel; Future Comprehensive metabolic panel; Future Thyroid Function Crockett; Future Uncontrolled type 2 diabetes mellitus with hyper glycemia 02/14/2019 Assessment & Plan (10/27/2024 12:54 AM CDT): On Tresiba. Dose not known. Was on Jenuvia, Glipizide, Jardiance, A1C from 09/22/22 9.4%. Patient says he takes multiple medications but is not sure which ones. Says his father manages some medications. Discussed with the patient the need to know all his current meds. There's risk of hypoglycemia with taking some of the medications listed on. Encouraged patient to bring list of his meds on follow up visit. Normal diabetic foot exam. - Check A1C, - Recommend annual diabetic eye exam, Orders: Lipid panel; Future Hemoglobin A1c; Future Comprehensive metabolic panel; Future Assessment & Plan (05/27/2019 10:44 AM AITCHBONE BREAKER): Get updated labs cont Levemir to 50 units daily Cont glucotrol, Glucophage, Jardiance, Januvia Assessment & Plan (02/14/2019 4:11 PM CDT): Uncontrolled Increase Levemir to 50 units daily Cont glucotrol, Glucophage, Jardiance, Januvia Encounter for immunization 02/14/2019 Encounter for Medicare annual wellness exam 01/19 Assessment & Plan (02/14/2019 4:12 PM CDT): Patient here for annual Medicare wellness visit and for review of complete medical problem list. All the elements of the plan were completed as outlined by CMS. A copy of the prevention plan was given to the patient. I reviewed Medicare Wellness Questionnaire (other physicians involved in care, depression screen, advanced directives), cognitive/memory, and functional assessment. I reviewed and updated the complete problem list, medication list, family history, and immunization records with the patient. I provided preventive counseling and early detection interventions to the patient through health maintenance update and summary of today's office visit. Bilateral impacted cerumen 12/16/2018 Assessment & Plan (01/17/2019 2:33 PM CDT): Refer to ENT Smoker 12/01/2018 Diabetes mellitus type II, controlled 01/05/2018 Assessment & Plan (01/17/2019 2:33 PM CDT): Stable Cont glucotrol, levemir, januvia, jardiance, metformin Assessment & Plan (11/03/2018 3:15 PM CDT): Stable Cont glucotrol, levemir, januvia, jardiance, metformin Assessment & Plan (09/17/2018 1:34 PM CDT): Diabetes is stable. Continue current treatment regimen. Diabetes will be reassessed in 6 months Cont Januvia, Glucotrol, levemir jardiance, Metformin. Decreased hearing 04/30/2016 Nicotine addiction 01/16/2016 CAD (coronary artery disease) 12/03/2015 Overview (09/07/2018): Predominantly inferior infarction with mild kiara-infarction ischemia on a treadmill Myoview stress test on 07/30/2015, he and his caregiver have opted for medical treatment over invasive therapy and understand risks with he remaining active and is asymptom Assessment & Plan (10/18/2024 3:23 PM CDT): Echo from 08/01/2015 which showed left ventricular systolic function was normal with ejection fraction of 55 to 60%, left atrium mildly dilated with trace to mild pulmonic valvular regurgitation and grade 1 diastolic dysfunction. On metoprolol, lisinopril and lasix. Assessment & Plan (05/27/2019 10:44 AM AITCHBONE BREAKER): Stable Cont ASA Assessment & Plan (02/14/2019 4:12 PM CDT): Stable Cont ASA Assessment & Plan (01/17/2019 2:33 PM CDT): Stable Cont ASA Assessment & Plan (11/03/2018 3:16 PM CDT): Stable Cont ASA Assessment & Plan (09/17/2018 1:34 PM CDT): Coronary artery disease is stable. Continue current treatment regimen. Cardiac status will be reassessed in 6 months Cont asa F/u with cardiology. Diastolic dysfunction 12/03/2015 Overview (09/07/2018): Grade 1 Assessment & Plan (05/27/2019 10:46 AM AITCHBONE BREAKER): Stable Cont lasix Assessment & Plan (02/14/2019 4:11 PM CDT): Stable Cont lasix Assessment & Plan (01/17/2019 2:33 PM CDT): Stable Cont lasix Assessment & Plan (11/03/2018 3:16 PM CDT): Stable Cont lasix Assessment & Plan (09/17/2018 1:35 PM CDT): Cont lastara smallorcon DVT (deep venous thrombosis) 12/03/2015 Overview (09/07/2018): History of on the left Intellectual disability 12/03/2015 Overview (09/07/2018): Lives in a prison Assessment & Plan (02/14/2019 4:12 PM CDT): Lives in prison Assessment & Plan (01/17/2019 2:33 PM CDT): Lives in prison Assessment & Plan (11/03/2018 3:16 PM CDT): Lives in prison Assessment & Plan (09/17/2018 1:35 PM CDT): Psychological condition is stable. lives in prison Psychological condition will be reassessed at the next regular appointment. 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 Assessment & Plan (10/27/2024 12:54 AM CDT): On Lipitor 80 mg. No recent labs. - Check lipid panel Orders: Lipid panel; Future Comprehensive metabolic panel; Future Assessment & Plan (05/27/2019 10:44 AM AITCHBONE BREAKER): stble Cont lipitor Assessment & Plan (02/14/2019 4:11 PM CDT): stble Cont lipitor Assessment & Plan (01/17/2019 2:34 PM CDT): stble Cont lipitor Assessment & Plan (11/03/2018 3:37 PM CDT): stble Cont lipitor Assessment & Plan (09/17/2018 1:35 PM CDT): Lipid abnormalities are stable. cont lipitor Lipids will be reassessed in 6 months. Hypertension 07/17/2015 Overview (09/07/2018): Controlled Assessment & Plan (10/27/2024 12:54 AM CDT): On lisinopril and Metoprolol and Lasix. BP today is wnl. Pt denies side any side effects from medication. Denies headache, blurry vision or dizziness. Orders: Lipid panel; Future Comprehensive metabolic panel; Future Thyroid Function Crockett; Future CBC with auto differential; Future Albumin Creatinine Ratio, Urine; Future Assessment & Plan (05/27/2019 10:44 AM AITCHBONE BREAKER): stble Cont lisinopril, toprol Assessment & Plan (02/14/2019 4:11 PM CDT): stble Cont lisinopril, toprol Assessment & Plan (01/17/2019 2:34 PM CDT): stble Cont lisinopril Assessment & Plan (11/03/2018 3:37 PM CDT): stble Cont lisinopril Assessment & Plan (09/17/2018 1:36 PM CDT): Hypertension is stable. Continue current medications. Blood pressure will be reassessed in 3 months Cont prinivil, toprol. Encounters Date Type Department Care Team Description 12/26/[address] [place] [phone] Wanda Martin NP Medical Question/Miscellaneous 12/07/2024 1:00 PM CDT Office Visit [facility] at [address] [phone] Vito Inman, Type 2 diabetes mellitus with hyperglycemia, with long-term current use of insulin (HCC) (Primary Dx) 11/30/2024 2:00 PM CDT Office Visit [facility] Medicine [address] [place] [address] [place] [phone] Wanda Martin NP Hypertension associated with diabetes (HCC) (Primary Dx); Class 3 severe obesity due to excess calories with serious comorbidity and body mass index (BMI) of 40.0 to 44.9 in adult; Mixed hyperlipidemia due to type 2 diabetes mellitus (HCC); Bilateral leg edema 11/22/2024 Telephone [facility] at [address] [phone] Dionicio Ruano MD Medical Question/Miscellaneous 11/16/2024 Orders Only [facility] at [address] [phone] Dionicio Ruano MD Intellectual disability (Primary Dx) 11/15/2024 1:30 PM CDT Office Visit [facility] at [address] [phone] Dionicio Ruano MD Uncontrolled diabetes mellitus with hyperglycemia, with long-term current use of insulin (HCC) (Primary Dx); Hypertension, essential; Chronic heart failure with preserved ejection fraction (HCC); Body mass index [BMI] 37.0-37.9, adult (Z68.37) 11/15/2024 Orders Only [facility] at [address] [phone] Dionicio Ruano MD Uncontrolled diabetes mellitus with hyperglycemia, with long-term current use of insulin (HCC) (Primary Dx) 10/27/2024 1:00 PM CDT Office Visit [facility] at [address] [phone] Dionicio Ruano MD Uncontrolled diabetes mellitus with hyperglycemia, with long-term current use of insulin (HCC) (Primary Dx); Hypertension associated with diabetes (HCC); Preventative health care; Primary hypertension; Coronary artery disease due to calcified coronary lesion; Obesity (BMI 35.0-39.9 without comorbidity) 10/27/2024 Orders Only [facility] at [address] [phone] Dionicio Ruano MD Uncontrolled type 2 diabetes mellitus with hyperglycemia (HCC) (Primary Dx) 10/27/2024 Telephone [facility] at [address] [phone] Dionicio Ruano MD 10/24/2024 11:35 AM CDT Lab [address] Pure hypercholesterolemia; Primary hypertension; Uncontrolled type 2 diabetes mellitus with hyperglycemia (HCC); Coronary artery disease due to calcified coronary lesion; Obesity (BMI 35.0-39.9 without comorbidity) 10/18/2024 2:00 PM CDT Office Visit [facility] at [address] [place] [phone] Dionicio Ruano MD Pure hypercholesterolemia (Primary Dx); Primary hypertension; Uncontrolled type 2 diabetes mellitus with hyperglycemia (HCC); Coronary artery disease due to calcified coronary lesion; Obesity (BMI 35.0-39.9 without comorbidity); Colon cancer screening from Last 3 Months Immunizations Immunization Administration Dates Next Due Influenza, Quadrivalent, Spl it, Preservative Free, Intramuscular 12/30/2018 Influenza, Trivalent, High D ose, Split, Preservative Free, Intramuscular 01/05/2018,01/08/2016 Influenza, Trivalent, IM (MDV) 01/07/2017,2013 Influenza, Trivalent, Preservative Free, Intramu scular 01/09/2016,01/13/2015 Pneumococcal Conjugate PCV 13 02/14/2019 Surgical History Surgery Date Site/Laterality Comments TONSILLECTOMY Medical History Medical History Date Comments Diabetes mellitus (HCC) Hyperlipidemia Hypertension Obesity Coronary artery disease Pulmonic regurgitation Diastolic dysfunction Venous stasis DVT (deep venous thrombosis) Dyslipidemia Family History Medical History Relation Name Comments Diabetes Mother Relation Name Status Comments Father Alive Mother Alive Social History Tobacco Use Types Packs/Day Years Used Date Smoking Tobacco: Some Days Cigarettes Smokeless Tobacco: Never Alcohol Use Standard Drinks/Week Comments Never 0 (1 standard drink = 0.6 oz pur e alcohol) [facility] Utilities Answer Date Recorded In the past 12 months has [employer], [employer], or water [employer] threatened to shut off services in your home? No 11/25/2024 Social Connection and Isolation Panel Answer Date Recorded In a typical week, how many times do you talk on the phone with family, friends, or neighbors? Three times a week 11/25/2024 How often do you get togethe r with friends or relatives? Three times a week 11/25/2024 How often do you attend chur or orthodox services? More than 4 times per year 11/25/2024 Do you belong to any clubs o r organizations such as restorationist groups, unions, fraternal or athletic groups, or [...] any time in the past 12 m [facility], were you homeless or living in a longterm (including now)? No 11/25/2024 AUDIT-C Answer Date [...] on file Sexual Orientation Not on file Obstetrics History Last Filed Vital Signs Vital Sign Reading Time Taken Comments Blood Pressure 118/58 12/07/2024 12:51 PM CDT Pulse 88 12/07/2024 12:51 PM CDT Temperature 36.7 C (98.1 F) 11/30/2024 1:56 PM CDT Respiratory Rate 16 11/15/2024 1:31 PM CDT Oxygen Saturation 96% 11/30/2024 1:56 PM CDT Inhaled Oxygen Concentration - - Weight 112.6 kg (248 lb 3.2 oz) 025 12:51 PM CDT Height 170.2 cm (5' 7) 12/07/2024 12:5 1 PM CDT Body Mass Index 38.87 12/07/2024 12:51 PM CDT Plan of Treatment Health Maintenance Due Date Last Done Comments Hepatitis C Screening 1950 Hepatitis B Screening 1970 Zoster Vaccine (1 of 2) 2002 Dilated Eye Exam 04/06/2019 04/06/2018 Well Visit 65+ 02/15/2020 02/14/2019 Colon Cancer Screening-Colonoscopy 05/11/2024 05/11/2014 Influenza Vaccine (#1) 2024 , 01/26/2020, 12/30/2018, Additional history exists Hemoglobin A1C 04/26/2025 10/24/2024 Foot Exam 10/18/2025 10/18/2024, 11/15/2018 Albumin Creatinine Ratio, Urine 10/24/2025 Lipid Panel 10/24/2025 10/24/2024, 09/18, 08/28/2021 eGFR 10/24/2025 10/24/2024 Depression Screening 11/30/2025 11/30/2024, 11/15/2024, 10/27/2024, Additional history exists Fall Risk Assessment 11/30/2025 11/30/2024, 11/15/2024, 10/27/2024, Additional history exists DTaP/Tdap/Td Vaccine (2 - Td or Tdap) 12/03/2030 12/03/2020 Colon Cancer Screening-CT Colonography Discontinued 05/11/2014 Colon Cancer Screening-DNA Stool Discontinued 05/11/19 15 Colon Cancer Screening-FIT Discontinued 05/11/2014 Colon Cancer Screening-Sigmoidoscopy Discontinued 05/11/2014 Pneumococcal vaccine 65+ Completed 03/20/2020, 01/19 Abdominal Aortic Aneurysm (A AA) Screen Completed 12/19/2020 Procedures Procedure Name Priority Date/Time Associated Diagnosis Comments EGFR Routine 10/24/2024 11:37 AM CDT Pure hypercholesterolemia Primary hypertension Uncontrolled type 2 diabetes mellitus with hyperglycemia (HCC) Coronary artery disease due to calcified coronary lesion Obesity (BMI 35.0-39.9 without comorbidity) DIFFERENTIAL AUTO Routine 10/24/2024 11: 37 AM CDT Primary hypertension ALBUMIN CREATININE RATIO, URINE Routine 10/24/2024 11:37 AM CDT Primary hypertension Coronary artery disease due to calcified coronary lesion CBC WITH AUTO DIFFERENTIAL Routine 10/24/2024 11:37 AM CDT Primary hypertension THYROID FUNCTION CASCADE Routine 10/24/2024 11:37 AM CDT Primary hypertension Obesity (BMI 35.0-39.9 without comorbidity) COMPREHENSIVE METABOLIC PANEL Routine 10/24/2024 11:37 AM CDT Pure hypercholesterolemia Primary hypertension Uncontrolled type 2 diabetes mellitus with hyperglycemia (HCC) Coronary artery disease due to calcified coronary lesion Obesity (BMI 35.0-39.9 without comorbidity) HEMOGLOBIN A1C Routine 10/24/2024 11:37 AM CDT Uncontrolled type 2 diabetes mellitus with hyperglycemia (HCC) LIPID PANEL Routine 10/24/2024 11:37 AM CDT Pure hypercholesterolemia Primary hypertension Uncontrolled type 2 diabetes mellitus with hyperglycemia (HCC) Coronary artery disease due to calcified coronary lesion Obesity (BMI 35.0-39.9 without comorbidity) DIABETES FOOT EXAM Routine 11/15/2018 DIABETES EYE EXAM Routine 04/06/2018 COLONOSCOPY Routine 05/11/2014 from Last 3 Months or Most Recently Relevant to Health Maintenance Results * eGFR (10/24/2024 11:37 AM CDT) eGFR >90 >=60 mL/min/1. 73 m2 Comment: Interpretive Data Reference Interval Normal >/= 90 mL/min/1.73m2 Mildly decreased* 60 - 89 mL/min/1.73m2 Mildly to moderately decreased 45 - 59 mL/min/1.73m2 Moderately to severely decreased 30 - 44 mL/min/1.73m2 Severely decreased 15 - 29 mL/min/1.73m2 Kidney Failure < 15 mL/min/1.73m2 *Relative to young adult level Estimated glomerular filtration rate is determined by the 2020 CKD-EPI equation recommended by the National Kidney Foundation (A Unifying Approach to GFR Estimation: Recommendations of the NKF-ASK Task Force on Reassessing the Inclusion of Race in Diagnosing Kidney Disease, JASN 2020). The CKD-EPI equation should not be used for patients with unstable renal function and has not been validated in children and those over 70. Current interpretive data was last reviewed 2021. Blood 10/24/2024 11:3 7 AM CDT 10/24/2024 1:57 PM CDT us Dionicio Ruano MD LAB BLOOD ORDERABL ES Final Result [facility] 1 [facility] [place] [address] * Differential, auto (10/24/2024 11:37 AM CDT) Neutrophil abs 2.82 1.50 - 6.50 K/cumm Imm gran abs 0.03 0.00 - 0.10 K/cumm [facility] ([place]) Lymphocyte abs 2.63 0.80 - 3.30 K/cumm [facility] Monocyte abs 0.62 0.20 - 0.80 K/cumm [facility] ([place] Eosinophil abs 0.18 0.00 - 0.50 K/cumm [facility] Basophil abs 0.07 0.00 - 0.10 K/cumm [facility] Neutrophil pct 44.4 % [facility] Comment: Interpretive Data Percent cell count reference ranges are not reported, since discordance with absolute values may lead to misinterpretation of CBC data. Current Interpretive Data was last revised on 2017. Imm gran pct 0.5 % [facility] ([place]) Comment: Interpretive Data Percent cell count reference ranges are not reported, since discordance with absolute values may lead to misinterpretation of CBC data. Current Interpretive Data was last revised on 2017. Lymphocyte pct 41.4 % [facility] ([place] Comment: Interpretive Data Percent cell count reference ranges are not reported, since discordance with absolute values may lead to misinterpretation of CBC data. Current Interpretive Data was last revised on 2017. Monocyte pct 9.8 % [facility] ([place] Comment: Interpretive Data Percent cell count reference ranges are not reported, since discordance with absolute values may lead to misinterpretation of CBC data. Current Interpretive Data was last revised on 2017. Eosinophil pct 2.8 % [facility] ([place] Comment: Interpretive Data Percent cell count reference ranges are not reported, since discordance with absolute values may lead to misinterpretation of CBC data. Current Interpretive Data was last revised on 2017. Basophil pct 1.1 % [facility] ([place] Comment: Interpretive Data Percent cell count reference ranges are not reported, since discordance with absolute values may lead to misinterpretation of CBC data. Current Interpretive Data was last revised on 2017. Blood 10/24/2024 11:3 7 AM CDT 10/24/2024 1:57 PM CDT Dionicio Ruano MD LAB BLOOD ORDERABL ES Final Result [facility] ([place] 1 [facility] Department of Laboratories [place], [place] [id number] * Thyroid Function Crockett (10/24/2024 11:37 AM CDT) TSH 0.79 0.30 - 4.20 mcIUnit/mL Blood 10/24/2024 11:3 7 AM CDT 10/24/2024 1:57 PM CDT Dionicio Ruano MD LAB BLOOD ORDERABL ES Final Result [facility] ([place]) 1 [facility] [place] [address] * CBC with auto differential (10/24/2024 11:37 AM CDT) WBC 6.35 3.80 - 9.90 K/cumm Hgb 14.2 13.0 - 17.5 g/dL [facility] Hct 43.1 38.9 - 50.3 % [facility] Plt 291 150 - 400 K/cumm [facility] MPV 11.4 9.1 - 12.3 fL [facility] RBC 4.66 4.30 - 5.80 M/cumm [facility] MCV 92.5 81.3 - 96.4 fL [facility] MCH 30.5 27.1 - 33.3 pg [facility] MCHC 32.9 32.3 - 35.7 g/dL [facility] RDW CV 13.4 11.1 - 14.9 % [facility] RDW SD 44.9 35.7 - 48.1 fL [facility] NRBC abs 0.00 0.00 - 0.01 K/cumm [facility] Blood 10/24/2024 11:3 7 AM CDT 10/24/2024 1:57 PM CDT Dionicio Ruano MD LAB BLOOD ORDERABL ES Final Result [facility] ([place] 1 [facility] [place] [address] * Albumin Creatinine Ratio, Urine (10/24/2024 11:37 AM CDT) Albumin Ur 18.0 mg/L Comment: Interpretive Data No reference range established. Current interpretive data was last revised 2018. Testing performed by: [facility], [address] [place] [address]., [id number] Creatinine Ur 85.4 mg/dL [facility] ([place] Comment: Interpretive Data No reference range established. Current interpretive data was last revised 2018. Testing performed by: [facility], [address] [place] [address]., [id number] Albumin Creatinine Ratio, Ur 21 1 - 29 mg/g [facility] ([place] Comment:Testing performed by : [facility], [address] [place] [address]., [id number] Urine 10/24/2024 11:3 7 AM CDT 10/24/2024 10:05 PM CDT Dionicio Ruano MD LAB URINE ORDERABL ES Final Result Performing Organization Address [facility] de Phone Number [facility] ([place] 1 [facility] [email or web address] [address] * (ABNORMAL) Hemoglobin A1c (10/24/2024 11:37 AM CDT) Hgb A1C 11.3(H) 4.0 - 5.6 % Estimated Average Glucose 278 mg/dL [facility] ([place] Comment: The ADA recommends reporting an estimated Average Glucose (eAG) with all Hemoglobin A1c results using the equation derived from a study of 507 normal and diabetic adults. Minority populations were underrepresented and children were not included. (Diabetes Care 31:0493-8955, 2008). The eAG is not equivalent to a fasting glucose. Blood 10/24/2024 11:3 7 AM CDT 10/24/2024 1:57 PM CDT Dionicio Ruano MD LAB BLOOD ORDERABL ES Final Result Performing Organization Address [facility] Co de Phone Number [facility] [address] [facility] [place] [address] * Lipid panel (10/24/2024 11:37 AM CDT) Cholesterol 144 30 - 199 mg/dL Comment: Interpretive Data Ages < or = 19 years Acceptable: <170 mg/dL Borderline high: 170-199 mg/dL High: >or= 200 mg/dL Ages > or = 20 years Desirable: <200 mg/dL Borderline high: 200-239 mg/dL High: >or= 240 mg/dL Literature References: 1. Expert Panel on Integrated Guidelines for Cardiovascular Health and Risk Reduction in Children and Adolescents. Pediatrics 2011;128:S213 2. NCEP Expert Panel. Circulation 2004;110:227 Current Interpretive Data was last revised on 2017. Triglycerides 96 <=149 mg/dL [facility] Comment: Interpretive Data Ages < or = 9 years Acceptable: <75 mg/dL Borderline high: 75-99 mg/dL High: >or= 100 mg/dL Ages 10 to 20 years Acceptable: <90 mg/dL Borderline high: 90-129 mg/dL High: >or= 130 mg/dL Ages > or = 20 years Desirable: <150 mg/dL Borderline high: 150-199 mg/dL High: 200-499 mg/dL Very high: >or= 499 mg/dL Literature References: 1. Expert Panel on Integrated Guidelines for Cardiovascular Health and Risk Reduction in Children and Adolescents. Pediatrics 2011;128:S213 2. NCEP Expert Panel. Circulation 2004;110:227 Current Interpretive Data was last revised on 2017. HDL 42 >=40 mg/dL [facility] ([facility]) Comment: Interpretive Data Ages < or = 19 years Acceptable: >45 mg/dL Borderline low: 40-45 mg/dL Low: <40 mg/dL Ages > or = 20 years Desirable: >or= 60 mg/dL Low: <40 mg/dL Literature References: 1. Expert Panel on Integrated Guidelines for Cardiovascular Health and Risk Reduction in Children and Adolescents. Pediatrics 2011;128:S213 2. NCEP Expert Panel. Circulation 2004;110:227 Current Interpretive Data was last revised on 2017. LDL, calculated 84 <=129 mg/dL [facility] Comment: Interpretive Data Ages < or = 19 years Acceptable: <110 mg/dL Borderline high: 110-129 mg/dL High: >or= 130 mg/dL Ages > or = 20 years Optimal: <100 mg/dL Near optimal: 100-129 mg/dL Borderline high: 130-159 mg/dL High: >160 mg/dL Calculated using the Gerardo LDL-C estimating equation. This equation was implemented on 2023. Prior to this date LDL-C was estimated using the Friedewald equation. Literature References: 1. Expert Panel on Integrated Guidelines for Cardiovascular Health and Risk Reduction in Children and Adolescents. Pediatrics 2011;128:S213 2. NCEP Expert Panel. Circulation 2004;110:227 3. Gerardo Flores et al. MELINDA Cardiol. 2020 August 18;5(5):540-548. doi: 10.1001/jamacardio.2020.0013 Current Interpretive Data was last revised on 2023. Non-HDL Cholesterol 102 mg/dL [facility]) Comment: Interpretive Data Ages < or = 19 years Acceptable: <120 mg/dL Borderline high: 120-144 mg/dL High: >145 mg/dL Ages > or = 20 years When triglycerides are >200 mg/dL, Non-HDL cholesterol is a secondary target of therapy with treatment goals that are 30 mg/dL greater than the LDL cholesterol target. Literature References: 1. Expert Panel on Integrated Guidelines for Cardiovascular Health and Risk Reduction in Children and Adolescents. Pediatrics 2011;128:S213 2. NCEP Expert Panel. Circulation 2004;110:227 Current Interpretive Data was last revised on 2017. Chol/HDL ratio 3 [facility] Blood 10/24/2024 11:3 7 AM CDT 10/24/2024 1:57 PM CDT us Dionicio Ruano MD LAB BLOOD ORDERABL ES Final Result [facility] 1 [facility] [place] [address] * (ABNORMAL) Comprehensive metabolic panel (10/24/2024 11:37 AM CDT) Sodium 139 135 - 145 mmol/L Potassium, pl 4.7 3.3 - 4.9 mmol/L [facility] Chloride 104 97 - 110 mmol/L [facility] CO2 25 22 - 32 mmol/L [facility] Anion gap 11 2 - 15 mmol/L [facility] BUN 10 6 - 25 mg/dL [facility] Creatinine 0.64(L) 0.80 - 1.30 mg/dL [facility] Glucose 273(H) 70 - 199 mg/dL [facility] Comment: Interpretive Data Fasting glucose >/= 126 mg/dl is diagnostic for diabetes. Fasting is defined as no caloric intake for at least 8 hours. Fasting glucose between 100 mg/dl to 125 mg/dl is diagnostic of prediabetes. In a patient with classic symptoms of hyperglycemia or hyperglycemic crisis, a random glucose >/= 200 mg/dl is diagnostic for diabetes. In the absence of unequivocal hyperglycemia, results should be confirmed by repeat testing. The classification and Diagnosis of Diabetes Diabetes Care 2021; 46: S19-S40. Current interpretive data was last revised 2022. Calcium 9.3 8.5 - 10.3 mg/dL [facility] Bilirubin, total 0.4 0.1 - 1.2 mg/dL [facility] Protein, pl 7.0 6.5 - 8.5 g/dL [facility] Albumin 3.8 3.5 - 5.0 g/dL [facility] Alk phos 110 40 - 130 Units/L [facility] ALT 38 7 - 55 Units/L [facility] AST 31 10 - 50 Units/L [facility] Blood 10/24/2024 11:3 7 AM CDT 10/24/2024 1:57 PM CDT Dionicio Ruano MD LAB BLOOD ORDERABL ES Final Result [facility] ([facility] 1 [facility] [place] [address] * DIABETES FOOT EXAM (11/15/2018) Diabetic Foot Exam Normal Historical Provider HEALTH MAINTENANCE Final Result * DIABETES EYE EXAM (04/06/2018) Diabetic Eye Exam Normal Historical Provider HEALTH MAINTENANCE Final Result * COLONOSCOPY (05/11/2014) Colonoscopy Normal Comment:dr. [email or web address] Historical Provider HEALTH MAINTENANCE Final Result from Last 3 Months or Most Recently Relevant to Health Maintenance Insurance [facility] A[employer] MEDICARE GOLD Care Teams Refrigeration Plant Cork Insulator Relationship Specialty Start Date End Date Wanda Martin NP [address] [facility] [address] [place], [place] [id number] PCP - General Internal Medicine 11/30/24 Gabo Nicholas MD Consulting Physician Interventional Cardiology 09/17/18 Chapito Urias MD [address] [facility] [address] [place] [address] Consulting Physician Vascular Surgery 09/17/18
--- OUTSIDE RECORDS SUMMARY | 2024-12-26 08:26 | XMS_ITS | Encounter Summary ---
Author Organization [facility] Facility Care Team Providers Care Home Hospice Rn Name Role Phone Aurelia Ivan MD Primary Care Provider [phone] Gabo Nicholas MD Unavailable [phone] Chapito Urias MD Unavailable [phone] Dionicio Ruano MD Primary Care Prov ider Harrison Rogers SHINGLE CUTTER Unavailable [phone] Wanda Martin NP Primary Care Provider [phone] Encounter Details Date Type Department Care Team (Latest Contact Info) Description 06/27/2016 Orders Only [facility] CLINCONV Provider, MD Sascha [address] [place], [place] [id number] Social History Tobacco Use Types Packs/Day Years [...] Date/Time Associated Diagnosis Comments SCAN - LABS 07/01/2016 12:00 AM CDT documented in this encounter Results * SCAN - LABS (07/01/2016 12:00 AM CDT) Narrative 07/01/2016 12:00 AM CDT Ordered by an unspecified provider. us Historical Provider Final Res ult documented in this encounter Visit Diagnoses Not on filedocumented in this encounter Care Teams Home Hospice Rn Relationship Specialty Start Date End Date Aurelia Ivan MD PCP - General Family Medicine 08/11/18 10/17/24 Dionicio Ruano MD [address] [facility] [address] [place] [address] PCP - General Family Medicine 10/18/24 11/29/24 Wanda Martin, SLITTER SCORER [address] [facility] [address] [facility] [address] [place] [address] PCP - General Internal Medicine 11/30/24 Gabo Nicholas MD Consulting Physician Interventional Cardiology 09/17/18 Chapito Urias MD [address] [facility] [address] [place] [address] Consulting Physician Vascular Surgery 09/17/18 Harrison Rogers LCSW [address] [place] [address] [address] [place] [address] Head Miller 11/17/24 12/04/24 documented as of this encounter
--- OUTSIDE RECORDS SUMMARY | 2024-12-26 08:26 | XMS_ITS | Encounter Summary ---
Author Organization [facility] Facility Care Team Providers Care Insurance Agent Name Role Phone Aurelia Ivan MD Primary Care Provider [phone] Gabo Nicholas MD Unavailable [phone] Chapito Urias MD Unavailable [phone] Dionicio Ruano MD Primary Care Prov ider Harrison Rogers SEED CLEANING MANAGER Unavailable Wanda Martin NP Primary Care Provider [phone] Encounter Details Date Type Department Care Team (Latest Contact Info) Description 07/06/2017 Orders Only [facility] CLINCONV Provider, MD Sascha [address] [place], [place] [id number] Social History Tobacco Use Types Packs/Day Years [...] Date/Time Associated Diagnosis Comments SCAN - LABS 07/02/2017 12:00 AM CDT documented in this encounter Results * SCAN - LABS (07/02/2017 12:00 AM CDT) Narrative 07/02/2017 12:00 AM CDT Ordered by an unspecified provider. us Historical Provider Final Res ult documented in this encounter Visit Diagnoses Not on filedocumented in this encounter Care Teams Insurance Agent Relationship Specialty Start Date End Date Aurelia Ivan MD PCP - General Family Medicine 08/11/18 10/17/24 Dionicio Ruano MD [address] [facility] [address] [place] [address] PCP - General Family Medicine 10/18/24 11/29/24 Wanda Martin, INFORMATION OPERATOR [address] [facility] [address] [facility] [address] [place] [address] PCP - General Internal Medicine 11/30/24 Gabo Nicholas MD Consulting Physician Interventional Cardiology 09/17/18 Chapito Urias MD [address] [facility] [address] [place] [address] Consulting Physician Vascular Surgery 09/17/18 Harrison Rogers LCSW [address] [place] [address] [address] [place] [address] Food Safety Coordinator 11/17/24 12/04/24 documented as of this encounter
--- OUTSIDE RECORDS SUMMARY | 2024-12-26 08:26 | XMS_ITS | Encounter Summary ---
Author Organization [facility] Facility Care Team Providers Care Paraffiner Name Role Phone Aurelia Ivan MD Primary Care Provider [phone] Gabo Nicholas MD Unavailable [phone] Chapito Urias MD Unavailable [phone] Dionicio Ruano MD Primary Care Prov ider Harrison Rogers RAIL CAR MECHANIC Unavailable [phone] Wanda Martin NP Primary Care Provider [phone] Encounter Details Date Type Department Care Team (Latest Contact Info) Description 04/28/2017 Orders Only [facility] CLINCONV Provider, MD Sascha [address] [place], [place] [id number] Social History Tobacco Use Types Packs/Day Years [...] Date/Time Associated Diagnosis Comments SCAN - LABS 05/04/2017 12:00 AM WELFARE AIDE documented in this encounter Results * SCAN - LABS (05/04/2017 12:00 AM WELFARE AIDE) Narrative 05/04/2017 12:00 AM WELFARE AIDE Ordered by an unspecified provider. us Historical Provider Final Res ult documented in this encounter Visit Diagnoses Not on filedocumented in this encounter Care Teams Paraffiner Relationship Specialty Start Date End Date Aurelia Ivan MD PCP - General Family Medicine 08/11/18 10/17/24 Dionicio Ruano MD [address] [facility] [address] [place] [address] PCP - General Family Medicine 10/18/24 11/29/24 Wanda Martin NP [address] [facility] [address] [place] [address] PCP - General Internal Medicine 11/30/24 Gabo Nicholas MD Consulting Physician Interventional Cardiology 09/17/18 Chapito Urias MD [address] [facility] [address] [place] [address] Consulting Physician Vascular Surgery 09/17/18 Harrison Rogers LCSW [address] [place] [address] [address] [place] [address] Baker Apprentice 11/17/24 12/04/24 documented as of this encounter
--- OUTSIDE RECORDS SUMMARY | 2024-12-26 08:26 | XMS_ITS | Clinical Summary ---
Author Organization [facility] Address [address] [place] [id number] Care Team Providers Care Corporate Responsibility Officer Name Role Phone Unavailable Primary Care Provider Unavailabl e Allergies No known active allergies Medications ASPIRIN LOW DOSE 81 MG tabletIndications:C oronary atherosclerosis due to calcified coronary lesion Take 1 tablet (81 mg total) by mouth daily. 11/07/19 21 Active [facility] Lancets Micro Thin 33G MiscIndications:Unc ontrolled type 2 diabetes mellitus with hyperglycemia ([facility] HHS/HCC) Use 2-3 times daily to check blood sugars. 100 each 1 11/07/19 21 Active Insulin Pen Needle (ULTICARE MICRO PEN NEEDLES) 32G X 4 MM MiscIndications:Unc ontrolled type 2 diabetes mellitus with hyperglycemia ([facility] HHS/HCC) Use daily with insulin pen 100 each 1 11/07/19 21 Active Lancets MiscIndications:Unc ontrolled type 2 diabetes mellitus with hyperglycemia ([facility] HHS/HCC) Check blood sugar 2 times a day or as directed. 100 each 3 11/07/19 21 Active CETIRIZINE 5 MG tabletIndications:S easonal allergies TAKE 1 TABLET BY MOUTH EVERY DAY 90 tablet 05/06/19 22 Active doxycycline hyclate (VIBRA-TABS) 100 MG tablet Take 1 tablet (100 mg total) by mouth daily. 08/31/19 24 Active glipiZIDE (GLUCOTROL) 10 MG tabletIndications:T ype 2 diabetes mellitus with hyperglycemia, with long-term current use of insulin ([facility] HHS/HCC) Take 1 tablet (10 mg total) by mouth 2 (two) times daily before meals. 180 tablet 1 06/13/19 25 Active furosemide (LASIX) 40 MG tabletIndications:D iuretic Therapy Take 1 tablet (40 mg total) by mouth daily. Indications: Treatment with Diuretic Therapy 90 tablet 1 06/13/19 25 Active atorvastatin (LIPITOR) 80 MG tabletIndications:H yperlipidemia Take 1 tablet (80 mg total) by mouth nightly at bedtime. Indications: High Amount of Fats in the Blood 90 tablet 1 06/13/19 25 Active empagliflozin (JARDIANCE) 25 MG tabletIndications:T ype 2 diabetes mellitus with hyperglycemia, with long-term current use of insulin ([facility]/HCC HHS/HCC) Take 1 tablet (25 mg total) by mouth daily. 90 tablet 1 06/13/19 25 Active metoprolol succinate ER (TOPROL-XL) 50 MG 24 hr tabletIndications:C hronic heart failure with preserved ejection fraction (CMS/HCC HHS/HCC),Hypertensi on associated with diabetes (CMS/HCC HHS/HCC) Take 1 tablet (50 mg total) by mouth daily. 90 tablet 06/13/19 25 Active metFORMIN (GLUCOPHAGE) 1000 MG tabletIndications:D iabetes Mellitus Take 1 tablet (1,000 mg total) by mouth 2 (two) times daily. Indications: Diabetes 180 tablet 1 06/13/19 25 Active lisinopril (PRINIVIL) 10 MG tabletIndications:H ypertension associated with diabetes (CMS/HCC HHS/HCC),Type 2 diabetes mellitus with microalbuminuria, with long-term current use of insulin ([facility] HHS/HCC) Take 1 tablet (10 mg total) by mouth daily. 90 tablet 06/13/19 25 Active tirzepatide (MOUNJARO) 7.5 MG/0.5ML injectionIndication s:Diabetes Mellitus Inject 7.5 mg into the skin once a week. Indications: Diabetes 6 mL 3 06/13/19 25 Active potassium chloride CR (K-TAB) 10 MEQ Tab CR tabletIndications:s upplement Take 1 tablet (10 mEq total) by mouth daily. Indications: supplement 90 tablet 2 06/13/19 25 Active varenicline, starter pack, (CHANTIX) 0.5 MG X 11 & 1 MG X 42 tabletIndications:T obacco use disorder Take one 0.5 mg tab by mouth once a day for 3 days, then take one 0.5 mg tab twice a day for 4 days, then take one 1 mg tab twice a day. 53 each 06/13/19 25 Active primidone (MYSOLINE) 50 MG tabletIndications:E ssential tremor TAKE 1 TABLET BY MOUTH TWICE A DAY 180 tablet 1 06/30/19 25 Active albuterol sulfate HFA 108 (90 Base) MCG/ACT inhalerIndications: Environmental allergies INHALE 2 PUFFS 4 TIMES A DAY NEEDED FOR SHORTNESS OF BREATH OR FOR WHEEZE 18 g 2 11/15/19 25 Active insulin degludec (TRESIBA FLEXTOUCH) 200 UNIT/ML injection (PEN)Indications:Ty pe 2 diabetes mellitus with hyperglycemia, with long-term current use of insulin ([facility]) Inject 80 units nightly; Appt needed. 3 mL 11/21/19 25 Active Active Problems Problem Noted Date Diagnosed Date Fall, initial encounter 11/27/2023 Peripheral arterial disease 11/27/2023 Cellulitis of right leg 09/02/2023 Localized edema 09/02/2023 Morbid (severe) obesity due to excess calories 0 12/31/2021 Chronic heart failure with p reserved ejection fraction ([facility]) 11/06/2020 Overview (08/28/2021): Currently euvolemic. Last echocardiogram done with stable ejection fraction. Currently on lisinopril 5 mg daily and metoprolol succinate 50 mg daily with Lasix. Getting repeat echocardiogram. History of DVT (deep vein thrombosis) 11/06/2020 Overview (01/26/2020): Overview: History of on the left Coronary atherosclerosis due to calcified barry ry lesion 11/06/2020 Overview (09/03/2020): Overview: Predominantly inferior infarction with mild kiara-infarction ischemia on a treadmill Myoview stress test on 07/30/2015, he and his caregiver have opted for medical treatment over invasive therapy and understand risks with he remaining active and is asymptom Last Assessment & Plan: Stable Cont ASA Predominantly inferior infarction with mild kiara-infarction ischemia on a treadmill Myoview stress test on 07/30/2015, he and his caregiver have opted for medical treatment over invasive therapy and understand risks with he remaining active and is asymptom Last Assessment & Plan: Stable Cont ASA History of tobacco use disorder 11/06/2020 Nodule of parotid gland 11/06/2020 Calcification of both carotid arteries 1 BMI 39.0-39.9,adult 01/29/2020 Uncontrolled type 2 diabetes mellitus with hyperglycemia ([facility]) 02/14/2019 Overview (08/28/2021): Currently stable with A1c of 7.2% as of 08/28/2021. Currently on metformin 1000 mg twice daily with glipizide 5 mg daily and insulin 38 units daily as well as Jardiance 25 mg daily. Diabetic diet encouraged. Weight loss encouraged. 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 Last Assessment & Plan: stble Cont lipitor Hypertension 07/17/2015 Overview (01/26/2020): Overview: Controlled Last Assessment & Plan: stble Cont lisinopril, toprol Resolved Problems Problem Noted Date Diagnosed Date Resolved Date BMI 40.0-44.9, adult 05/21/2020 021 Need for immunization against influenza 01/29/2020 01/30/2020 Uncontrolled type 2 diabetes mellitus with hyperglycemia ([facility]) 02/14/2019 11/07/19 21 Overview (03/19/2020): Last Assessment & Plan: Get updated labs cont Levemir to 50 units daily Cont glucotrol, Glucophage, Jardiance, Januvia Encounter for Medicare annual wellness exam 02/14/2019 11/06/2020 Overview (09/03/2020): Last Assessment & Plan: Patient here for annual Medicare wellness visit and for review of complete medical problem list. All the elements of the plan were completed as outlined by [facility]. A copy of the prevention plan was [...] today's office visit. Bilateral impacted cerumen 12/16/2018 0 11/06/2020 Overview (09/03/2020): Last Assessment & Plan: Refer to ENT Smoker 12/01/2018 11/06/2020 Nicotine addiction 01/16/2016 Encounters Date Type Department Care Team Description 11/30/2024 Patient Outreach [facility] Medical [facility] [place] [address] [place] [address] Kellie Lorenzo MA Quality Gap Closure 11/21/2024 Telephone [facility] Medical [facility] [place] [address] [place] [address] Chelly Pickett MD Appointment Request 11/20/2024 Orders Only [facility] [place] [address] [place] [address] Chelly Pickett MD from Last 3 Months Immunizations Immunization Administration Dates Next Due Fluzone 6 Months+ Quad (0.5 mL Prefilled Syringe) 01/26/2020 Fluzone High Dose (IIV, triv alent, 0.5mL) 06/13/2024 Fluzone High Dose - >Age 65 (Prefilled Syringe) 12/31/2021,02/20/2021 Influenza (Generic) 01/07/2017, 6,01/13/2015,2013 Influenza Adult (Generic) 12/30/2018,01/05/2018, 01/08/2016 Pneumococcal (Pneumovax 23) 03/20/2020 Pneumococcal (Prevnar 13) 02/14/2019 Tdap (Adacel) 12/03/2020 Family History Medical History Relation Comments Hypertension Father Stroke Mother Relation Status Comments Father Alive Mother Alive Social History Tobacco Use Types Packs/Day Years Used Date Smoking Tobacco: Former Cigarettes 1 48 Smokeless Tobacco: Never Tobacco Cessation:Counseling Given: Yes Alcohol Use Standard Drinks/Week Comments Not Currently 0 (1 standard drink = 0.6 oz pur e alcohol) AUDIT-C Answer Date Recorded Q1: How often do you have a drink containing alcohol? Never 06/25/2022 Q2: How many drinks containi ng alcohol do you have on a typical day when you are drinking? Patient does not drink Q3: How often do you have si x or more drinks on one occasion? Never 06/25/2022 PHQ-2 Answer Date Recorded Patient Health Questionnaire-2 Score 0 06/13/2024 Sex and Gender Information Value Date Recorded Sex Assigned at Male 06/13/2024 3:59 PM POLICE PATROL OFFICER Legal Sex Male 8:31 PM CDT Gender Identity Male 06/13/2024 3:59 PM POLICE PATROL OFFICER Sexual Orientation Straight 06/13/2024 3: 59 PM POLICE PATROL OFFICER Last Filed Vital Signs Vital Sign Reading Time Taken Comments Blood Pressure 144/82 06/13/2024 4:56 PM POLICE PATROL OFFICER Pulse 62 06/13/2024 3:59 PM POLICE PATROL OFFICER Temperature 36.3 C (97.3 F) 06/13/2024 3:59 PM POLICE PATROL OFFICER Respiratory Rate 18 06/13/2024 3:59 PM POLICE PATROL OFFICER Oxygen Saturation 100% 06/13/2024 3:59 PM POLICE PATROL OFFICER Inhaled Oxygen Concentration - - Weight 110 kg (242 lb 9.6 oz) 06/13/2024 3:59 PM POLICE PATROL OFFICER Height 167.6 cm (5' 6) 06/13/2024 3:59 PM POLICE PATROL OFFICER Body Mass Index 39.16 06/13/2024 3:59 PM POLICE PATROL OFFICER Plan of Treatment Health Maintenance Due Date Last Done Comments Colorectal Cancer Screening Colonoscopy (10 Years) 1950 Kidney Health Evaluation 1950 Zoster Vaccines (1 of 2) 2002 RSV Immunization or 60+ Years (1 - Risk 60-74 years 1-dose series) 2012 Lung Cancer Screening 01/16/2023 01/16/2022, 021 ASCVD LDL 09/30/2023 09/29/2022, 08/18, 09/19/2020 Lipid Panel 09/30/2023 09/29/2022, 08/18, 09/19/2020 Diabetes: Retinopathy Eye Exam 11/19/2024 11/20/2023, 11/20/2023, 09/17/2021 COVID-19 Vaccine ( season) 2024 Hemoglobin A1C 01/24/2025 10/24/2024, 05/22, 11/27/2023, Additional history exists Annual Medicare Wellness Visit 02/09/2025 06/25/2022, 03/20/2020 Postponed from 06/27/2023 (Patient Refused) DTaP, Tdap and Td Vaccines (2 - Td or Tdap) 12/03/2030 12/03/2020 Pneumococcal Vaccine: 50+ Years Completed 03/20/2020, 02/14/2019 Hepatitis C Completed 11/06/2020 AAA SCREENING Completed 12/19/2020 PHQ-2 (Physician [place]) Completed 06/13/2024 Meningococcal B Vaccine Aged Out No l onger eligible based on patient's age to complete this topic Meningococcal Vaccine Aged Out No bryon eloy eligible based on patient's age to complete this topic RSV Immunizations Under 20 Months Aged Out No longer eligible based on patient's age to complete this topic Procedures Procedure Name Priority Date/Time Associated Diagnosis Comments HEMOGLOBIN, GLYCOSYLATED Routine 06/14/2024 Type 2 diabetes mellitus with microalbuminuria, with long-term current use of insulin ([facility]/HCC [facility]/HCC) DIABETIC RETINOPATHY EXAM (NEGATIVE)(SCAN ORDER) Routine 11/20/2023 LIPID PANEL Routine 09/29/2022 8:58 AM CDT General medical exam Type 2 diabetes mellitus with hyperglycemia, with long-term current use of insulin Hypertension associated with diabetes Type 2 diabetes mellitus with microalbuminuria, with long-term current use of insulin Chronic heart failure with preserved ejection fraction Coronary atherosclerosis due to calcified coronary lesion Hyperlipidemia associated with type 2 diabetes mellitus Hypertension associated with type 2 diabetes mellitus Hyperlipidemia, unspecified hyperlipidemia type CT LUNG SCREENING Routine 01/16/2022 1:0 6 PM CDT Cigarette smoker US AORTA Routine 12/19/2020 11:54 AM CDT Screening for AAA (abdominal aortic aneurysm) HEPATITIS C ANTIBODY Routine 11/06/2020 2:05 PM CDT Encounter for hepatitis C screening test for low risk patient from Last 3 Months or Most Recently Relevant to Health Maintenance Results * DIABETIC RETINOPATHY EXAM (NEGATIVE) (11/20/2023) [facility] Scanned SCANNING Final Resu lt [facility] ONBASE * LIPID PANEL (09/29/2022 8:58 AM CDT) CHOLESTEROL 143 <200 MG/DL 09/29/2022 3:18 PM CDT [facility] TRIGLYCERIDES 102 <150 MG/DL 09/29/2022 3:18 PM CDT [facility] HDL 47 >40 MG/DL 09/29/2022 3:18 PM CDT [facility] LDL-C 76 <100 MG/DL 09/29/2022 3:18 PM CDT [facility] VLDL CALCULATION 20 5 - 28 MG/DL 09/29/2022 3:18 PM CDT [facility] [place] CHOL/HDL RATIO 3.0 0.0 - 4.0 09/29/2022 3:18 PM CDT [facility] LDL/HDL 1.6 0.41 - 2.13 09/29/2022 3:18 PM CDT [facility] [place] NON HDL CHOLESTEROL 96 <140 MG/DL 09/29/2022 3:18 PM CDT [facility] [place] 09/29/2022 8:58 AM CDT Chelly Pickett MD LABORATORY Final Result [facility], [place] [address] [place] [address], * CT LUNG SCREENING (01/16/2022 1:06 PM CDT) Anatomical Region Laterality Modality Chest Computed Tomogra phy 01/16/2022 5:16 PM CDT Impressions 01/16/2022 5:32 PM CDT =====Impression:===== LUNG-RADS Category/Recommendation: Category 1 /Continue annual screening with LDCT in 12 months. Suggest follow up exam on or around 2023-01-16. LUNG-RADS category S: Negative, no new/unknown potentially significant incidental findings requiring urgent additional evaluation. Other Incidental Findings: As above. Thank you for choosing the [facility]'s Lung Screening Program. Ordered By: CHELLY PICKETT Interpreted By: Delon Calles MD, 01/16/2022 5:16 PM Narrative 01/16/2022 5:32 PM CDT Examination: Lung Screening Low-Dose Ct Thorax Without Contrast Exam date/time: 01/16/2022 1:06 PM Clinical history: Asymptomatic patient meeting NCCN high-risk criteria for lung screening. * 71 years * 30 pack years or greater * Current smoker of have quit smoking within the last 15 years. Comparison: 12/19/2020 Technique: Noncontrast, helical, low-dose CT (LDCT) chest per standard departmental protocol. A dose lowering technique was used for this procedure, which may include, but is not limited to, dose reduction technique, automated exposure control, the use of iterative reconstruction, and ALARA (As Low As Reasonably Achievable) / Image Gently techniques. FINDINGS: Lung Screening Specific (LUNG-RADS): No suspicious lung nodules. Potentially Significant Incidentals (LUNG-RADS category S): None. Additional Findings: Chronic pleural/parenchymal scarring in the right lower lobe marked coronary artery calcifications. Few scattered vascular calcifications elsewhere. No suspicious adenopathy. Chronic healed rib fractures. Diffuse degenerative changes. Procedure Note Marli, Delon Poe MD - 01/16/2022 Examination: Lung Screening Low-Dose Ct Thorax Without Contrast Exam date/time: 01/16/2022 1:06 PM Clinical history: Asymptomatic patient meeting NCCN high-risk criteria forlung screening. * 71 years * 30 pack years or greater * Current smoker of have quit smoking within the last 15 years. Comparison: 12/19/2020 Technique: Noncontrast, helical, low-dose CT (LDCT) chest per standarddepartmental protocol. A dose lowering technique was used for thisprocedure, which may include, but is not limited to, dose reductiontechnique, automated exposure control, the use of iterativereconstruction, and ALARA (As Low As Reasonably Achievable) / Image Gentlytechniques. FINDINGS: Lung Screening Specific (LUNG-RADS): No suspicious lung nodules. Potentially Significant Incidentals (LUNG-RADS category S): None. Additional Findings: Chronic pleural/parenchymal scarring in the rightlower lobe marked coronary artery calcifications. Few scattered vascularcalcifications elsewhere. No suspicious adenopathy. Chronic healed ribfractures. Diffuse degenerative changes. =====Impression:===== LUNG-RADS Category/Recommendation: Category 1 /Continue annual screeningwith LDCT in 12 months. Suggest follow up exam on or around 2023-01-16. LUNG-RADS category S: Negative, no new/unknown potentially significantincidental findings requiring urgent additional evaluation. Other Incidental Findings: As above. Thank you for choosing the [facility] Lung ScreeningProgram. Ordered By: CHELLY PICKETT Interpreted By: Delon Calles MD, 01/16/2022 5:16 PM Chelly Pickett MD CT Final Result * US AORTA (12/19/2020 11:54 AM CDT) Anatomical Region Laterality Modality Abdomen Ultrasound 12/19/2020 1:03 PM CDT Impressions 12/19/2020 1:11 PM CDT IMPRESSION: No abdominal aortic aneurysm of the superior and mid aorta. Obscured distal aorta. Referred By: CHELLY PICKETT Interpreted By: Nakul Aponte, 12/19/2020 1:03 PM Narrative 12/19/2020 1:11 PM CDT IMAGING STUDIES: US AORTA DATE: 12/19/2020 10:56 AM HISTORY: screen for AAA; hx of smoking 70-year-old male with history of smoking. Reported smoker for 50 years by quit this year. Diabetes. Hypertension. Screening study for abdominal aortic aneurysm. COMPARISON: No comparisons. DISCUSSION: Busby scale, color doppler and pulse doppler imaging abdominal aorta. Proximal abdominal aorta 2.6 x 2.6 cm. Mid abdominal aorta 2.1 x 1.9 cm. Distal abdominal aorta and proximal iliac arteries are obscured by bowel. Procedure Note Nakul Aponte MD - 12/19/2020 IMAGING STUDIES: US AORTADATE: 12/19/2020 10:56 AM HISTORY: screen for AAA; hx of smoking 70-year-old male with historyof smoking. Reported smoker for 50 years by quit this year. Diabetes.Hypertension. Screening study for abdominal aortic aneurysm. COMPARISON: No comparisons. DISCUSSION: Busby scale, color doppler and pulse doppler imaging abdominal aorta. Proximal abdominal aorta 2.6 x 2.6 cm. Mid abdominal aorta 2.1 x 1.9 cm. Distal abdominal aorta and proximal iliac arteries are obscured bybowel. IMPRESSION: No abdominal aortic aneurysm of the superior and mid aorta. Obscureddistal aorta. Referred By: CHELLY PICKETT Interpreted By: Nakul Aponte, 12/19/2020 1:03 PM us Chelly Pickett MD ULTRASOUND Final Result * HEPATITIS C ANTIBODY (11/06/2020 2:05 PM CDT) HEPATITIS C AB NON-REACTI VE NON-REACT [place] 11/06/2020 9:35 PM CDT [facility] Comment: ANTIBODIES TO HCV NOT DETECTED. DOES NOT EXCLUDE THE POSSIBILITY OF EXPOSURE TO HCV. 11/06/2020 2:05 PM CDT Chelly Pickett MD LABORATORY Final Result [facility] [address] [place] [address], [id number] from Last 3 Months or Most Recently Relevant to Health Maintenance Insurance MEDICAID [employer] Advance Directives * Full Code (Latest Code Status on File) Date Activated Date Inactivated Comments 11/14/2020 3:10 PM
--- OUTSIDE RECORDS SUMMARY | 2024-12-26 08:26 | XMS_ITS | Encounter Summary ---
Author Organization [facility] Care Team Providers Care Information Resources Manager Name Role Phone Aurelia Ivan MD Primary Care Provider [phone] Gabo Nicholas MD Unavailable [phone] Chapito Urias MD Unavailable [phone] Dionicio Ruano MD Primary Care Prov ider Harrison Rogers NYLON MACHINE OPERATOR Unavailable [phone] Wanda Martin NP Primary Care Provider [phone] Encounter Details Date Type Department Care Team (Latest Contact Info) Description 03/28/2016 Orders Only [facility] Provider, MD Sascha [address] [place], [place] [id number] Social History Tobacco Use Types Packs/Day Years [...] Date/Time Associated Diagnosis Comments SCAN - LABS 03/28/2016 12:00 AM PRIMARY PRODUCTS INSPECTORS documented in this encounter Results * SCAN - LABS (03/28/2016 12:00 AM PRIMARY PRODUCTS INSPECTORS) Narrative 03/28/2016 12:00 AM PRIMARY PRODUCTS INSPECTORS Ordered by an unspecified provider. us Historical Provider Final Res ult documented in this encounter Visit Diagnoses Not on filedocumented in this encounter Care Teams Information Resources Manager Relationship Specialty Start Date End Date Aurelia Ivan MD PCP - General Family Medicine 08/11/18 10/17/24 Dionicio Ruano MD [address] [place] [address] PCP - General Family Medicine 10/18/24 11/29/24 Wanda Martin NP [address] [facility] [address] [place] [address] PCP - General Internal Medicine 11/30/24 Gabo Nicholas MD Consulting Physician Interventional Cardiology 09/17/18 Chapito Urias MD [address] [place] [address] Consulting Physician Vascular Surgery 09/17/18 Harrison Rogers LCSW [address] [place] [address] [address] [place] [address] Cardiovascular Surgeon 11/17/24 12/04/24 documented as of this encounter
--- OUTSIDE RECORDS SUMMARY | 2024-12-26 08:26 | XMS_ITS | Encounter Summary ---
Author Organization [facility] Facility Care Team Providers Care Registered Nurse Bone Marrow Transplant Name Role Phone Aurelia Ivan MD Primary Care Provider [phone] Gabo Nicholas MD Unavailable [phone] Chapito Urias MD Unavailable [phone] Dionicio Ruano MD Primary Care Prov ider Harrison Rogers AIRCRAFT SKIN BURNISHER Unavailable [phone] Wanda Martin NP Primary Care Provider Encounter Details Date Type Department Care Team (Latest Contact Info) Description 11/26/2015 Orders Only [facility] CLINCONV Provider, MD Sascha [address] [place], [place] [id number] Social History Tobacco Use Types Packs/Day Years [...] Date/Time Associated Diagnosis Comments SCAN - LABS 11/28/2015 12:00 AM CDT documented in this encounter Results * SCAN - LABS (11/28/2015 12:00 AM CDT) Narrative 11/28/2015 12:00 AM CDT Ordered by an unspecified provider. us Historical Provider Final Res ult documented in this encounter Visit Diagnoses Not on filedocumented in this encounter Care Teams Registered Nurse Bone Marrow Transplant Relationship Specialty Start Date End Date Aurelia Ivan MD PCP - General Family Medicine 08/11/18 10/17/24 Dionicio Ruano MD [address] [facility] [address] [place] [address] PCP - General Family Medicine 10/18/24 11/29/24 Wanda Martin, SENIOR DYNAMICS CRM DEVELOPER [address] [facility] [address] [facility] [address] [place] [address] PCP - General Internal Medicine 11/30/24 Gabo Nicholas MD Consulting Physician Interventional Cardiology 09/17/18 Chapito Urias MD [address] [facility] [address] [place] [address] Consulting Physician Vascular Surgery 09/17/18 Harrison Rogers LCSW [address] [place] [address] [address] [place] [address] Crystalizer Operator 11/17/24 12/04/24 documented as of this encounter
--- OUTSIDE RECORDS SUMMARY | 2024-12-26 08:26 | XMS_ITS | Encounter Summary ---
Author Organization [facility] Facility Care Team Providers Care Bathing Suit Maker Name Role Phone Aurelia Ivan MD Primary Care Provider [phone] Gabo Nicholas MD Unavailable [phone] Chapito Urias MD Unavailable [phone] Dionicio Ruano MD Primary Care Prov ider Harrison Rogers SURVEILLANCE SPECIALIST Unavailable [phone] Wanda Martin NP Primary Care Provider [phone] Encounter Details Date Type Department Care Team (Latest Contact Info) Description 05/29/2017 Orders Only [facility] CLINCONV Provider, MD Sascha [address] [place], [place] [id number] Social History Tobacco Use Types Packs/Day Years [...] Comments SCAN - LABS 05/04/2017 12:00 AM DIRECTOR OF SCIENCE documented in this encounter Results * SCAN - LABS (05/04/2017 12:00 AM DIRECTOR OF SCIENCE) Narrative 05/04/2017 12:00 AM DIRECTOR OF SCIENCE Ordered by an unspecified provider. us Historical Provider Final Res ult documented in this encounter Visit Diagnoses Not on filedocumented in this encounter Care Teams Bathing Suit Maker Relationship Specialty Start Date End Date Aurelia Ivan MD PCP - General Family Medicine 08/11/18 10/17/24 Dionicio Ruano MD [address] [facility] [address] [place] [address] PCP - General Family Medicine 10/18/24 11/29/24 Wanda Martin NP [address] [facility] 500 [place] [address] PCP - General Internal Medicine 11/30/24 Gabo Nicholas MD Consulting Physician Interventional Cardiology 09/17/18 Chapito Urias MD [address] [facility] [address] [place] [address] Consulting Physician Vascular Surgery 09/17/18 Harrison Rogers LCSW [address] [place] [address] [address] [place] [address] Pulverizer Mill Operator 11/17/24 12/04/24 documented as of this encounter
--- OUTSIDE RECORDS SUMMARY | 2024-12-26 08:26 | XMS_ITS | Encounter Summary ---
Author Organization [facility] Facility Care Team Providers Care Director Of Solutions Architecture Name Role Phone Aurelia Ivan MD Primary Care Provider [phone] Gabo Nicholas MD Unavailable [phone] Chapito Urias MD Unavailable [phone] Dionicio Ruano MD Primary Care Prov ider Harrison Rogers CLINICAL PARTNER Unavailable [phone] Wanda Martin NP Primary Care Provider [phone] Encounter Details Date Type Department Care Team (Latest Contact Info) Description 04/07/2017 Orders Only [facility] CLINCONV Provider, MD Sascha [address] [place], [place] [id number] Social History Tobacco Use Types Packs/Day Years [...] Date/Time Associated Diagnosis Comments SCAN - LABS 04/02/2017 12:00 AM BUS AND RAIL OPERATOR documented in this encounter Results * SCAN - LABS (04/02/2017 12:00 AM BUS AND RAIL OPERATOR) Narrative 04/02/2017 12:00 AM BUS AND RAIL OPERATOR Ordered by an unspecified provider. us Historical Provider Final Res ult documented in this encounter Visit Diagnoses Not on filedocumented in this encounter Care Teams Director Of Solutions Architecture Relationship Specialty Start Date End Date Aurelia Ivan MD PCP - General Family Medicine 08/11/18 10/17/24 Dionicio Ruano MD [address] [facility] [address] [place] [address] PCP - General Family Medicine 10/18/24 11/29/24 Wanda Martin NP [address] [facility] 500 [place] [address] PCP - General Internal Medicine 11/30/24 Gabo Nicholas MD Consulting Physician Interventional Cardiology 09/17/18 Chapito Urias MD [address] [facility] [address] [place] [address] Consulting Physician Vascular Surgery 09/17/18 Harrison Rogers LCSW [address] [place] [address] [address] [place] [address] Hedis Manager 11/17/24 12/04/24 documented as of this encounter
--- OUTSIDE RECORDS SUMMARY | 2024-12-26 08:26 | XMS_ITS | Encounter Summary ---
Author Organization [facility] Facility Care Team Providers Care Child Psychometrist Name Role Phone Aurelia Ivan MD Primary Care Provider [phone] Gabo Nicholas MD Unavailable [phone] Chapito Urias MD Unavailable Dionicio Ruano MD Primary Care Prov ider Harrison Rogers DRIVE IN WAITER/WAITRESS Unavailable [phone] Wanda Martin NP Primary Care Provider [phone] Encounter Details Date Type Department Care Team (Latest Contact Info) Description 08/01/2016 Orders Only [facility] CLINCONV Provider, MD Sascha [address] [place], [place] [id number] Social History Tobacco Use Types Packs/Day Years [...] Date/Time Associated Diagnosis Comments SCAN - LABS 08/04/2016 12:00 AM CDT documented in this encounter Results * SCAN - LABS (08/04/2016 12:00 AM CDT) Narrative 08/04/2016 12:00 AM CDT Ordered by an unspecified provider. us Historical Provider Final Res ult documented in this encounter Visit Diagnoses Not on filedocumented in this encounter Care Teams Child Psychometrist Relationship Specialty Start Date End Date Aurelia Ivan MD PCP - General Family Medicine 08/11/18 10/17/24 Dionicio Ruano MD [address] [facility] [address] [place] [address] PCP - General Family Medicine 10/18/24 11/29/24 Wanda Martin, CIRCLE SAW OPERATOR [address] [facility] [address] [facility] 500 [place] [address] PCP - General Internal Medicine 11/30/24 Gabo Nicholas MD Consulting Physician Interventional Cardiology 09/17/18 Chapito Urias MD [address] [facility] [address] [place] [address] Consulting Physician Vascular Surgery 09/17/18 Harrison Rogers LCSW [address] [place] [address] [address] [place] [address] Rn Shift Mgr 11/17/24 12/04/24 documented as of this encounter
--- OUTSIDE RECORDS SUMMARY | 2024-12-26 08:26 | XMS_ITS | Encounter Summary ---
Author Organization [facility] Facility Care Team Providers Care Transportation Technician Name Role Phone Aurelia Ivan MD Primary Care Provider [phone] Gabo Nicholas MD Unavailable [phone] Chapito Urias MD Unavailable [phone] Dionicio Ruano MD Primary Care Prov ider Harrison Rogers EQUITIES ANALYST Unavailable [phone] Wanda Martin NP Primary Care Provider [phone] Encounter Details Date Type Department Care Team (Latest Contact Info) Description 01/02/2017 Orders Only [facility]G CLINCONV Provider, MD Sascha [address] [place], [place] [id number] Social History Tobacco Use Types Packs/Day Years [...] Date/Time Associated Diagnosis Comments SCAN - LABS 12/30/2016 12:00 AM CDT documented in this encounter Results * SCAN - LABS (12/30/2016 12:00 AM CDT) Narrative 12/30/2016 12:00 AM CDT Ordered by an unspecified provider. us Historical Provider Final Res ult documented in this encounter Visit Diagnoses Not on filedocumented in this encounter Care Teams Transportation Technician Relationship Specialty Start Date End Date Aurelia Ivan MD PCP - General Family Medicine 08/11/18 10/17/24 Dionicio Ruano MD [address] [facility] [address] [place] [address] PCP - General Family Medicine 10/18/24 11/29/24 Wanda Martin, CLASSIFYING MACHINE OPERATOR [address] [facility] [address] [facility] 500 [place] [address] PCP - General Internal Medicine 11/30/24 Gabo Nicholas MD Consulting Physician Interventional Cardiology 09/17/18 Chapito Urias MD [address] [facility] [address] [place] [address] Consulting Physician Vascular Surgery 09/17/18 Harrison Rogers LCSW [address] [place] [address] [address] [place] [address] Fabricator Foam Rubber 11/17/24 12/04/24 documented as of this encounter
--- OUTSIDE RECORDS SUMMARY | 2024-12-26 08:26 | XMS_ITS | Encounter Summary ---
Author Organization [facility] Facility Care Team Providers Care Cryptologic Technician Operator/Analyst Name Role Phone Aurelia Ivan MD Primary Care Provider [phone] Gabo Nicholas MD Unavailable [phone] Chapito Urias MD Unavailable [phone] Dionicio Ruano MD Primary Care Prov ider Harrison Rogers VOCATIONAL AIDE Unavailable [phone] Wanda Martin NP Primary Care Provider [phone] Encounter Details Date Type Department Care Team (Latest Contact Info) Description 09/04/2015 Orders Only [facility] CLINCONV Provider, MD Sascha [address] [place] [address] Social History Tobacco Use Types Packs/Day [...] Date/Time Associated Diagnosis Comments PROCEDURE - RESULT 09/04/2015 12 :00 AM CDT documented in this encounter Results * PROCEDURE - RESULT (09/04/2015 12:00 AM CDT) Narrative 09/04/2015 12:00 AM CDT Ordered by an unspecified provider. us Historical Provider Final Res ult documented in this encounter Visit Diagnoses Not on filedocumented in this encounter Care Teams Cryptologic Technician Operator/Analyst Relationship Specialty Start Date End Date Aurelia Ivan MD PCP - General Family Medicine 08/11/18 10/17/24 Dionicio Ruano MD [address] [facility] [address] [place] [address] PCP - General Family Medicine 10/18/24 11/29/24 Wanda Martin, FRAME FEEDER [address] [facility] [address] [facility] 500 [place] [address] PCP - General Internal Medicine 11/30/24 Gabo Nicholas MD Consulting Physician Interventional Cardiology 09/17/18 Chapito Urias MD [address] [facility] [address] [place] [address] Consulting Physician Vascular Surgery 09/17/18 Harrison Rogers LCSW [address] [place] [address] [address] [place] [address] Inside Sales Specialist 11/17/24 12/04/24 documented as of this encounter
--- OUTSIDE RECORDS SUMMARY | 2024-12-26 08:26 | XMS_ITS | Encounter Summary ---
Author Organization [facility] Facility Care Team Providers Care Industrial Sales Representative Name Role Phone Aurelia Ivan MD Primary Care Provider [phone] Gabo Nicholas MD Unavailable [phone] Chapito Urias MD Unavailable [phone] Dionicio Ruano MD Primary Care Prov ider Harrison Rogers ENTRY LEVEL PROJECT COORDINATOR Unavailable [phone] Wanda Martin NP Primary Care Provider [phone] Encounter Details Date Type Department Care Team (Latest Contact Info) Description 10/01/2016 Orders Only MMG CLINCONV Provider, MD Sascha [address] [place], [place] [phone] Social History Tobacco Use Types Packs/Day Years [...] Date/Time Associated Diagnosis Comments SCAN - LABS 09/26/2016 12:00 AM CDT documented in this encounter Results * SCAN - LABS (09/26/2016 12:00 AM CDT) Narrative 09/26/2016 12:00 AM CDT Ordered by an unspecified provider. us Historical Provider Final Res ult documented in this encounter Visit Diagnoses Not on filedocumented in this encounter Care Teams Industrial Sales Representative Relationship Specialty Start Date End Date Aurelia Ivan MD PCP - General Family Medicine 08/11/18 10/17/24 Dionicio Ruano MD [address] [facility] [address] [place] [address] PCP - General Family Medicine 10/18/24 11/29/24 Wanda Martin, SENIOR ACCOUNTANT ANALYST [address] [facility] [address] [facility] 500 [place] [address] PCP - General Internal Medicine 11/30/24 Gabo Nicholas MD Consulting Physician Interventional Cardiology 09/17/18 Chapito Urias MD [address] [facility] [address] [place] [address] Consulting Physician Vascular Surgery 09/17/18 Harrison Rogers LCSW [address] [place] [address] [address] [place] [address] Network Applications Specialist 11/17/24 12/04/24 documented as of this encounter
--- OUTSIDE RECORDS SUMMARY | 2024-12-26 08:26 | XMS_ITS | Encounter Summary ---
Author Organization [facility] Facility Care Team Providers Care Ice Cream Van Vendor Name Role Phone Aurelia Ivan MD Primary Care Provider [phone] Gabo Nicholas MD Unavailable [phone] Chapito Urias MD Unavailable [phone] Dionicio Ruano MD Primary Care Prov ider Harrison Rogers FIELD ADJUSTER Unavailable [phone] Wanda Martin NP Primary Care Provider [phone] Encounter Details Date Type Department Care Team (Latest Contact Info) Description 09/07/2015 Orders Only MMG CLINCONV Provider, MD Sascha [address] [place], [place] [id number] Social History Tobacco Use Types Packs/Day Years [...] Date/Time Associated Diagnosis Comments SCAN - LABS 09/07/2015 12:00 AM CDT documented in this encounter Results * SCAN - LABS (09/07/2015 12:00 AM CDT) Narrative 09/07/2015 12:00 AM CDT Ordered by an unspecified provider. us Historical Provider Final Res ult documented in this encounter Visit Diagnoses Not on filedocumented in this encounter Care Teams Ice Cream Van Vendor Relationship Specialty Start Date End Date Aurelia Ivan MD PCP - General Family Medicine 08/11/18 10/17/24 Dionicio Ruano MD [address] [facility] [address] [place] [address] PCP - General Family Medicine 10/18/24 11/29/24 Wanda Martin, DEV MANAGER [address] [facility] [address] [facility] 500 [place] [address] PCP - General Internal Medicine 11/30/24 Gabo Nicholas MD Consulting Physician Interventional Cardiology 09/17/18 Chapito Urias MD [address] [facility] [address] [place] [address] Consulting Physician Vascular Surgery 09/17/18 Hrarison Rogers LCSW [address] [place] [address] [address] [place] [address] High School Assistant Principal 11/17/24 12/04/24 documented as of this encounter
--- OUTSIDE RECORDS SUMMARY | 2024-12-26 08:26 | XMS_ITS | Encounter Summary ---
Author Organization [facility] Facility Care Team Providers Care Software Integration Developer Name Role Phone Aurelia Ivan MD Primary Care Provider [phone] Gabo Nicholas MD Unavailable [phone] Chapito Urias MD Unavailable [phone] Dionicio Ruano MD Primary Care Prov ider Harrison Rogers COCONUT BOILER Unavailable [phone] Wanda Martin NP Primary Care Provider [phone] Encounter Details Date Type Department Care Team (Latest Contact Info) Description 07/01/2016 Orders Only MMG CLINCONV Provider, MD Sascha [address] [place], [place] [id number] Social History Tobacco Use Types Packs/Day Years [...] on filedocumented in this encounter Care Teams Software Integration Developer Relationship Specialty Start Date End Date Aurelia Ivan MD PCP - General Family Medicine 08/11/18 10/17/24 Dionicio Ruano MD [address] [facility] [address] [place] [address] PCP - General Family Medicine 10/18/24 11/29/24 Wanda Martin, PLAYGROUND WORKER [address] [facility] [address] [facility] 500 [place] [address] PCP - General Internal Medicine 11/30/24 Gabo Nicholas MD Consulting Physician Interventional Cardiology 09/17/18 Chapito Urias MD [address] [facility] [address] [place] [address] Consulting Physician Vascular Surgery 09/17/18 Harrison Rogers LCSW [address] [place] [address] [address] [place] [address] Puff Iron Operator 11/17/24 12/04/24 documented as of this encounter
--- OUTSIDE RECORDS SUMMARY | 2024-12-26 08:26 | XMS_ITS | Encounter Summary ---
Author Organization [facility] Facility Care Team Providers Care Information Systems Director Name Role Phone Aurelia Ivan MD Primary Care Provider [phone] Gabo Nicholas MD Unavailable [phone] Chapito Urias MD Unavailable [phone] Dionicio Ruano MD Primary Care Prov ider Harrison Rogers BLOCK HACKER Unavailable [phone] Wanda Martin NP Primary Care Provider [phone] Encounter Details Date Type Department Care Team (Latest Contact Info) Description 01/01/2018 Orders Only MMG CLINCONV Provider, MD Sascha [address] [place], [place] [phone] Social History Tobacco Use Types Packs/Day Years [...] Date/Time Associated Diagnosis Comments SCAN - LABS 01/05/2018 12:00 AM CDT documented in this encounter Results * SCAN - LABS (01/05/2018 12:00 AM CDT) Narrative 01/05/2018 12:00 AM CDT Ordered by an unspecified provider. us Historical Provider Final Res ult documented in this encounter Visit Diagnoses Not on filedocumented in this encounter Care Teams Information Systems Director Relationship Specialty Start Date End Date Aurelia Ivan MD PCP - General Family Medicine 08/11/18 10/17/24 Dionicio Ruano MD [address] [facility] [address] [place] [address] PCP - General Family Medicine 10/18/24 11/29/24 Wanda Martin, CRM DEVELOPER [address] [facility] [address] [facility] 500 [place] [address] PCP - General Internal Medicine 11/30/24 Gabo Nicholas MD Consulting Physician Interventional Cardiology 09/17/18 Chapito Urias MD [address] [facility] [address] [place] [address] Consulting Physician Vascular Surgery 09/17/18 Harrison Rogers LCSW [address] [place] [address] [address] [place] [address] Verifier Operator 11/17/24 12/04/24 documented as of this encounter
--- OUTSIDE RECORDS SUMMARY | 2024-12-26 08:26 | XMS_ITS | Encounter Summary ---
Author Organization [facility] Facility Care Team Providers Care Assistant General Manager Name Role Phone Aurelia Ivan MD Primary Care Provider [phone] Gabo Nicholas MD Unavailable [phone] Chapito Urias MD Unavailable [phone] Dionicio Ruano MD Primary Care Prov ider Harrison Rogers CABLE TOOL OPERATOR Unavailable [phone] Wanda Martin NP Primary Care Provider [phone] Encounter Details Date Type Department Care Team (Latest Contact Info) Description 07/07/2017 Orders Only MMG CLINCONV Provider, MD Sascha [address] [place], [place] [phone] Social History Tobacco Use Types Packs/Day Years [...] Date/Time Associated Diagnosis Comments SCAN - LABS 07/07/2017 12:00 AM CDT documented in this encounter Results * SCAN - LABS (07/07/2017 12:00 AM CDT) Narrative 07/07/2017 12:00 AM CDT Ordered by an unspecified provider. us Historical Provider Final Res ult documented in this encounter Visit Diagnoses Not on filedocumented in this encounter Care Teams Assistant General Manager Relationship Specialty Start Date End Date Aurelia Ivan MD PCP - General Family Medicine 08/11/18 10/17/24 Dionicio Ruano MD [address] [facility] [address] [place] [address] PCP - General Family Medicine 10/18/24 11/29/24 Wanda Martin, AGRICULTURAL RESEARCH TECHNOLOGIST [address] [facility] [address] [facility] 500 [place] [address] PCP - General Internal Medicine 11/30/24 Gabo Nicholas MD Consulting Physician Interventional Cardiology 09/17/18 Chapito Urias MD [address] [facility] [address] [place] [address] Consulting Physician Vascular Surgery 09/17/18 Harrison Rogers LCSW [address] [place] [address] [address] [place] [address] Communication Specialist 11/17/24 12/04/24 documented as of this encounter
--- OUTSIDE RECORDS SUMMARY | 2024-12-26 08:26 | XMS_ITS | Encounter Summary ---
Author Organization [facility] Facility Care Team Providers Care General Cleaner Name Role Phone Aurelia Ivan MD Primary Care Provider [phone] Gabo Nicholas MD Unavailable [phone] Chapito Urias MD Unavailable [phone] Dionicio Ruano MD Primary Care Prov ider Harrison Rogers EVENT DECORATOR Unavailable [phone] Wanda Martin NP Primary Care Provider [phone] Encounter Details Date Type Department Care Team (Latest Contact Info) Description 11/02/2015 Orders Only MMG CLINCONV Provider, MD Sascha [address] [place], [place] [phone] Social History Tobacco Use Types Packs/Day Years [...] Date/Time Associated Diagnosis Comments SCAN - LABS 10/30/2015 12:00 AM CDT documented in this encounter Results * SCAN - LABS (10/30/2015 12:00 AM CDT) Narrative 10/30/2015 12:00 AM CDT Ordered by an unspecified provider. us Historical Provider Final Res ult documented in this encounter Visit Diagnoses Not on filedocumented in this encounter Care Teams General Cleaner Relationship Specialty Start Date End Date Aurelia Ivan MD PCP - General Family Medicine 08/11/18 10/17/24 Dionicio Ruano MD [address] [facility] [address] [place] [address] PCP - General Family Medicine 10/18/24 11/29/24 Wanda Martin, CONFIGURATION CONSULTANT [address] [facility] [address] [facility] 500 [place] [address] PCP - General Internal Medicine 11/30/24 Gabo Nicholas MD Consulting Physician Interventional Cardiology 09/17/18 Chapito Urias MD [address] [facility] [address] [place] [address] Consulting Physician Vascular Surgery 09/17/18 Harrison Rogers LCSW [address] [place] [address] [address] [place] [address] Paleologist 11/17/24 12/04/24 documented as of this encounter
--- OUTSIDE RECORDS SUMMARY | 2024-12-26 08:26 | XMS_ITS | Encounter Summary ---
Author Organization [facility] Facility Care Team Providers Care Pipelaying Fitter Name Role Phone Aurelia Ivan MD Primary Care Provider [phone] Gabo Nicholas MD Unavailable [phone] Chapito Urias MD Unavailable [phone] Dionicio Ruano MD Primary Care Prov ider Harrison Rogers STRIKE OPERATIONS OFFICER Unavailable [phone] Wanda Martin NP Primary Care Provider Encounter Details Date Type Department Care Team (Latest Contact Info) Description 08/22/2015 Orders Only [facility] CLINCONV Provider, MD Sascha [address] [place] [id number] Social History Tobacco Use Types Packs/Day [...] Date/Time Associated Diagnosis Comments PROCEDURE - RESULT 08/23/2015 12 :00 AM CDT documented in this encounter Results * PROCEDURE - RESULT (08/23/2015 12:00 AM CDT) Narrative 08/23/2015 12:00 AM CDT Ordered by an unspecified provider. us Historical Provider Final Res ult documented in this encounter Visit Diagnoses Not on filedocumented in this encounter Care Teams Pipelaying Fitter Relationship Specialty Start Date End Date Aurelia Ivan MD PCP - General Family Medicine 08/11/18 10/17/24 Dionicio Ruano MD [address] [place] [address] PCP - General Family Medicine 10/18/24 11/29/24 Wanda Martin, TELECOMMUNICATION OPERATOR [address] [facility] [address] [facility] [address] [place] [address] PCP - General Internal Medicine 11/30/24 Gabo Nicholas MD Consulting Physician Interventional Cardiology 09/17/18 Chapito Urias MD [address] [place] [address] Consulting Physician Vascular Surgery 09/17/18 Harrison Rogers LCSW [address] [place] [address] [address] [place] [address] Taxicab Coordinator 11/17/24 12/04/24 documented as of this encounter
--- OUTSIDE RECORDS SUMMARY | 2024-12-26 08:26 | XMS_ITS | Encounter Summary ---
Author Organization [facility] Facility Care Team Providers Care Bench Hand Name Role Phone Aurelia Ivan MD Primary Care Provider [phone] Gabo Nicholas MD Unavailable [phone] Chapito Urias MD Unavailable [phone] Dionicio Ruano MD Primary Care Prov ider Harrison Rogers HORSE RIDER Unavailable Wanda Martin NP Primary Care Provider [phone] Encounter Details Date Type Department Care Team (Latest Contact Info) Description 01/05/2018 Orders Only [facility] CLINCONV Provider, MD Sascha [address] [place], [place] [id number] Social History Tobacco Use Types Packs/Day Years [...] on filedocumented in this encounter Care Teams Bench Hand Relationship Specialty Start Date End Date Aurelia Ivan MD PCP - General Family Medicine 08/11/18 10/17/24 Dionicio Ruano MD [address] [facility] [place] [address] PCP - General Family Medicine 10/18/24 11/29/24 Wanda Martin, LIVESTOCK FARM MANAGER [address] [facility] [address] [facility] [address] [place] [address] PCP - General Internal Medicine 11/30/24 Gabo Nicholas MD Consulting Physician Interventional Cardiology 09/17/18 Chapito Urias MD [address] [facility] [place] [address] Consulting Physician Vascular Surgery 09/17/18 Harrison Rogers LCSW [address] [place] [address] [address] [place] [address] Creative Writing English Professor 11/17/24 12/04/24 documented as of this encounter
--- OUTSIDE RECORDS SUMMARY | 2024-12-26 08:26 | XMS_ITS | Encounter Summary ---
Author Organization [facility] Facility Care Team Providers Care Tank Pumper Name Role Phone Aurelia Ivan MD Primary Care Provider [phone] Gabo Nicholas MD Unavailable [phone] Chapito Urias MD Unavailable [phone] Dionicio Ruano MD Primary Care Prov ider Harrison Rogers STORAGE MANAGER Unavailable [phone] Wanda Martin NP Primary Care Provider [phone] Encounter Details Date Type Department Care Team (Latest Contact Info) Description 11/12/2016 Orders Only [facility] CLINCONV Provider, MD Sascha [address] [place], [place] [id number] Social History Tobacco Use Types Packs/Day Years [...] Date/Time Associated Diagnosis Comments SCAN - LABS 10/28/2016 12:00 AM CDT documented in this encounter Results * SCAN - LABS (10/28/2016 12:00 AM CDT) Narrative 10/28/2016 12:00 AM CDT Ordered by an unspecified provider. us Historical Provider Final Res ult documented in this encounter Visit Diagnoses Not on filedocumented in this encounter Care Teams Tank Pumper Relationship Specialty Start Date End Date Aurelia Ivan MD PCP - General Family Medicine 08/11/18 10/17/24 Dionicio Ruano MD [address] [facility] [address] [place] [address] PCP - General Family Medicine 10/18/24 11/29/24 Wanda Martin, CERTIFIED MASTER SAFECRACKER [address] [facility] [address] [facility] [address] [place] [address] PCP - General Internal Medicine 11/30/24 Gabo Nicholas MD Consulting Physician Interventional Cardiology 09/17/18 Chapito Urias MD [address] [facility] [address] [place] [address] Consulting Physician Vascular Surgery 09/17/18 Harrison Rogers LCSW [address] [place] [address] [address] [place] [address] World History Teacher 11/17/24 12/04/24 documented as of this encounter
--- OUTSIDE RECORDS SUMMARY | 2024-12-26 08:26 | XMS_ITS | Encounter Summary ---
Author Organization [facility] Facility Care Team Providers Care Insurance Agency Manager Name Role Phone Aurelia Ivan MD Primary Care Provider [phone] Gabo Nicholas MD Unavailable [phone] Chapito Urias MD Unavailable [phone] Dionicio Ruano MD Primary Care Prov ider Harrison Rogers NURSING TEACHER Unavailable [phone] Wanda Martin NP Primary Care Provider [phone] Encounter Details Date Type Department Care Team (Latest Contact Info) Description 10/21/2017 Orders Only [facility] CLINCONV Provider, MD Sascha [address] [place], [place] [phone] Social History Tobacco Use Types Packs/Day Years [...] Date/Time Associated Diagnosis Comments SCAN - LABS 09/30/2017 12:00 AM CDT documented in this encounter Results * SCAN - LABS (09/30/2017 12:00 AM CDT) Narrative 09/30/2017 12:00 AM CDT Ordered by an unspecified provider. us Historical Provider Final Res ult documented in this encounter Visit Diagnoses Not on filedocumented in this encounter Care Teams Insurance Agency Manager Relationship Specialty Start Date End Date Aurelia Ivan MD PCP - General Family Medicine 08/11/18 10/17/24 Dionicio Ruano MD [address] [facility] [address] [place] [address] PCP - General Family Medicine 10/18/24 11/29/24 Wanda Martin, ELECTRODE CLEANER [address] [facility] [address] [facility] [address] [place] [address] PCP - General Internal Medicine 11/30/24 Gabo Nicholas MD Consulting Physician Interventional Cardiology 09/17/18 Chapito Urias MD [address] [facility] [address] [place] [address] Consulting Physician Vascular Surgery 09/17/18 Harrison Rogers LCSW [address] [place] [address] [address] [place] [address] Sr Technical Sales Consultant 11/17/24 12/04/24 documented as of this encounter
--- OUTSIDE RECORDS SUMMARY | 2024-12-26 08:26 | XMS_ITS | Encounter Summary ---
Author Organization [facility] Facility Care Team Providers Care Fur Ironer Name Role Phone Aurelia Ivan MD Primary Care Provider [phone] Gabo Nicholas MD Unavailable [phone] Chapito Urias MD Unavailable [phone] Dionicio Ruano MD Primary Care Prov ider Harrison Rogers PRODUCT INTRODUCTION MANAGER Unavailable [phone] Wanda Martin NP Primary Care Provider [phone] Encounter Details Date Type Department Care Team (Latest Contact Info) Description 01/01/2016 Orders Only [facility] CLINCONV Provider, MD Sascha [address] [place], [place] [id number] Social History Tobacco Use Types Packs/Day Years [...] Date/Time Associated Diagnosis Comments SCAN - LABS 01/08/2016 12:00 AM CDT documented in this encounter Results * SCAN - LABS (01/08/2016 12:00 AM CDT) Narrative 01/08/2016 12:00 AM CDT Ordered by an unspecified provider. us Historical Provider Final Res ult documented in this encounter Visit Diagnoses Not on filedocumented in this encounter Care Teams Fur Ironer Relationship Specialty Start Date End Date Aurelia Ivan MD PCP - General Family Medicine 08/11/18 10/17/24 Dionicio Ruano MD [address] [facility] [address] [place] [address] PCP - General Family Medicine 10/18/24 11/29/24 Wanda Martin, GEARCASE ASSEMBLER [address] [facility] [address] [facility] [address] [place] [address] PCP - General Internal Medicine 11/30/24 Gabo Nicholas MD Consulting Physician Interventional Cardiology 09/17/18 Chapito Urias MD [address] [facility] [address] [place] [address] Consulting Physician Vascular Surgery 09/17/18 Harrison Rogers LCSW [address] [place] [address] [address] [place] [address] Bus Van Driver 11/17/24 12/04/24 documented as of this encounter
--- OUTSIDE RECORDS SUMMARY | 2024-12-26 08:26 | XMS_ITS | Encounter Summary ---
Author Organization [facility] Facility Care Team Providers Care Marketing Operations Associate Name Role Phone Aurelia Ivan MD Primary Care Provider [phone] Gabo Nicholas MD Unavailable [phone] Chapito Urias MD Unavailable [phone] Dionicio Ruano MD Primary Care Prov ider Harrison Rogers TELEVISION NEWS REPORTER Unavailable [phone] Wanda Martin NP Primary Care Provider [phone] Encounter Details Date Type Department Care Team (Latest Contact Info) Description 09/30/2017 Orders Only [facility] CLINCONV Provider, MD Sascha [address] [place], [place] [phone] Social History Tobacco Use Types Packs/Day Years [...] Date/Time Associated Diagnosis Comments SCAN - LABS 10/08/2017 12:00 AM CDT SCAN - LABS 10/08/2017 12:00 AM CDT documented in this encounter Results * SCAN - LABS (10/08/2017 12:00 AM CDT) Narrative 10/08/2017 12:00 AM CDT Ordered by an unspecified provider. Historical Provider Final Res ult * SCAN - LABS (10/08/2017 12:00 AM CDT) Narrative 10/08/2017 12:00 AM CDT Ordered by an unspecified provider. Historical Provider Final Res ult documented in this encounter Visit Diagnoses Not on filedocumented in this encounter Care Teams Marketing Operations Associate Relationship Specialty Start Date End Date Aurelia Ivan MD PCP - General Family Medicine 08/11/18 10/17/24 Dionicio Ruano MD [address] [facility] [address] [place] [address] PCP - General Family Medicine 10/18/24 11/29/24 Wanda Martin NP [address] [facility] 500 [place] [address] PCP - General Internal Medicine 11/30/24 Gabo Nicholas MD Consulting Physician Interventional Cardiology 09/17/18 Chapito Urias MD [address] [facility] [address] [place] [address] Consulting Physician Vascular Surgery 09/17/18 Harrisno Rogers LCSW [address] [place] [address] [address] [place] [address] Seconds Handler 11/17/24 12/04/24 documented as of this encounter
--- OUTSIDE RECORDS SUMMARY | 2024-12-26 08:26 | XMS_ITS | Encounter Summary ---
Author Organization [facility] Facility Care Team Providers Care Assessment Nurse Name Role Phone Aurelia Ivan MD Primary Care Provider [phone] Gabo Nicholas MD Unavailable [phone] Chapito Urias MD Unavailable [phone] Dionicio Ruano MD Primary Care Prov ider Harrison Rogers COUNTER POCKET SEWER Unavailable Wanda Martin NP Primary Care Provider [phone] Encounter Details Date Type Department Care Team (Latest Contact Info) Description 10/26/2015 Orders Only [facility] CLINCONV Provider, MD Sascha [address] [place], [place] [id number] Social History Tobacco Use Types Packs/Day Years [...] on filedocumented in this encounter Care Teams Assessment Nurse Relationship Specialty Start Date End Date Aurelia Ivan MD PCP - General Family Medicine 08/11/18 10/17/24 Dionicio Ruano MD [address] [facility] [address] [place] [address] PCP - General Family Medicine 10/18/24 11/29/24 Wanda Martin, GOLD LETTERER [address] [facility] [address] [facility] [address] [place] [address] PCP - General Internal Medicine 11/30/24 Gabo Nicholas MD Consulting Physician Interventional Cardiology 09/17/18 Chapito Urias MD [address] [facility] [address] [place] [address] Consulting Physician Vascular Surgery 09/17/18 Harrison Rogers LCSW [address] [place] [address] [address] [place] [address] Audio Visual Coordinator 11/17/24 12/04/24 documented as of this encounter
[2024-12-26 09:16] LABS: Hemoglobin A1C 9.2 % (<5.7)
[2024-12-26 09:35] LABS: Alanine Aminotransferase 63 U/L (6-50); Albumin Level 4.1 g/dL (3.5-5.1); Alkaline Phosphatase 120 U/L (38-126); Anion Gap 7 mmol/L (4-12); Aspartate Amino Transferase 41 U/L (17-59); Bilirubin,Total 0.6 mg/dL (0.2-1.3); Blood Urea Nitrogen 13 mg/dL (9-20); Calcium 9.3 mg/dL (8.4-10.2); Carbon Dioxide 29 mmol/L (22-30); Chloride 101 mmol/L (98-107); Cholesterol 131 mg/dL (0-200); Estimated Glomerular Filt Rate > 60; Glucose 145 mg/dL (65-110); HDL Direct 32 mg/dL; Potassium 4.7 mmol/L (3.4-5.0); Sodium 137 mmol/L (137-145); Total Protein 7.5 g/dL (6.3-8.2); Triglycerides 125 mg/dL (<150)
[2024-12-26 09:41] LABS: MALB Creatinine Ratio 12.3 mg/g (0-30)
== END 2024-12-26 08:04 | disposition home or self-care (01) ==
PROVIDERS: PCP Nurse Practitioner Family; Visit Provider Nurse Practitioner Family
DX: E11.69 Type 2 diabetes mellitus with other specified complication (principal); E78.2 Mixed hyperlipidemia; E11.59 Type 2 diabetes mellitus with other circulatory complications; I15.2 Hypertension secondary to endocrine disorders
CPT/HCPCS: 36415; 80053; 80061; 82043; 82565; 83036